=== PATIENT | female | born 1940 | race Caucasian/White ===

== ENCOUNTER → 2022-06-25 11:29 | Outpatient (BNVA) | payer MEDICARE, SELFPAY | PROVIDERS: PCP Family Medicine; Visit Provider Family Medicine | DX: E83.119 Hemochromatosis, unspecified (principal); E78.5 Hyperlipidemia, unspecified; M85.80 Other specified disorders of bone density and structure, unspecified site; D50.9 Iron deficiency anemia, unspecified; Z12.83 Encounter for screening for malignant neoplasm of skin; I10 Essential (primary) hypertension; G47.00 Insomnia, unspecified; M10.9 Gout, unspecified; Z00.00 Encounter for general adult medical examination without abnormal findings; Z76.89 Persons encountering health services in other specified circumstances | CPT/HCPCS: 80061; 82306; 82728; 83550; 84443; 85025 ==

== ENCOUNTER → 2022-07-23 08:19 | Outpatient (BNVA) | payer MEDICARE, SELFPAY | PROVIDERS: PCP Family Medicine; Referring Provider Family Medicine; Visit Provider Nurse Practitioner Family | DX: L82.1 Other seborrheic keratosis (principal); L81.4 Other melanin hyperpigmentation; D22.5 Melanocytic nevi of trunk; L85.3 Xerosis cutis; L57.0 Actinic keratosis; L72.0 Epidermal cyst; S80.261A Insect bite (nonvenomous), right knee, initial encounter; S20.469A Insect bite (nonvenomous) of unspecified back wall of thorax, initial encounter; W57.XXXA Bitten or stung by nonvenomous insect and other nonvenomous arthropods, initial encounter | CPT/HCPCS: 10120; 17000; 17003; 99204 ==

== ENCOUNTER 2022-09-12 09:50 | Oncology outpatient (recurring) (ONCR) | payer MEDICARE, SELFPAY ==
[2022-09-12 11:27] LABS: Basophils % 0.5 %; Eosinophils # 0.2 10^3/uL (0.0-0.8); Eosinophils % 2.9 %; Lymphocytes # 1.6 10^3/uL (0.8-4.8); Lymphocytes % 27.6 %; Mean Corpuscular HGB Conc 32.6 g/dL (30.0-36.0); Mean Corpuscular Hemoglobin 34.1 pg (28.0-34.0); Mean Corpuscular Volume 104.5 fl (81-99); Mean Platelet Volume 10.7 fL (7.4-10.4); Monocytes # 0.6 10^3/uL (0.2-0.9); Monocytes % 9.5 %; Neutrophils % 59.3 %; Nucleated Red Blood Cells % 0 %; Platelet Count 177 10^3/cmm (130-400); Red Cell Distribution Width 12.7 % (12.1-15.1); White Blood Count 5.9 10^3/uL (4.0-10.0)
== END 2022-09-21 23:59 | disposition home or self-care (01) ==
PROVIDERS: PCP Family Medicine; Visit Provider Internal Medicine Medical Oncology
DX: E83.119 Hemochromatosis, unspecified (principal)
CPT/HCPCS: 36415; 81256; 85025; 99203

== ENCOUNTER 2022-10-23 12:02 | Oncology outpatient (recurring) (ONCR) | payer MEDICARE, SELFPAY ==
[2022-10-23 12:09] VITALS: BMI 27.2
[2022-10-23 12:11] VITALS: BP 133/77; PULSE 72; RESP 16; TEMP 36.9; O2SAT 95
[2022-10-23 12:41] LABS: Basophils % 0.6 %; Eosinophils # 0.2 10^3/uL (0.0-0.8); Eosinophils % 3.3 %; Hematocrit 43.3 % (37.0-47.0); Hemoglobin 14.2 g/dL (11.5-15.3); Lymphocytes # 1.3 10^3/uL (0.8-4.8); Lymphocytes % 25.8 %; Mean Corpuscular HGB Conc 32.8 g/dL (30.0-36.0); Mean Corpuscular Hemoglobin 33.7 pg (28.0-34.0); Mean Corpuscular Volume 102.9 fl (81-99); Monocytes # 0.5 10^3/uL (0.2-0.9); Monocytes % 9.5 %; Neutrophils # 3.14 10^3/uL (1.8-7.7); Neutrophils % 60.8 %; Nucleated Red Blood Cells % 0 %; Platelet Count 157 10^3/cmm (130-400); Red Blood Count 4.21 10^6/uL (4.1-5.3); Red Cell Distribution Width 12.8 % (12.1-15.1); White Blood Count 5.2 10^3/uL (4.0-10.0)
[2022-10-23 13:10] LABS: Ferritin 169 ng/mL (15-150); Iron 126 ug/dL (37-145)
== END 2022-11-22 23:59 | disposition home or self-care (01) ==
PROVIDERS: PCP Family Medicine; Visit Provider Internal Medicine Medical Oncology
DX: E83.110 Hereditary hemochromatosis (principal); Z87.891 Personal history of nicotine dependence
CPT/HCPCS: 82728; 83540; 85025; 99213

== ENCOUNTER 2023-01-03 10:57 | Oncology outpatient (recurring) (ONCR) | payer MEDICARE, SELFPAY ==
[2023-01-03 12:05] LABS: Basophils % 0.3 %; Eosinophils # 0.2 10^3/uL (0.0-0.8); Eosinophils % 3.8 %; Hematocrit 45.3 % (36-47); Lymphocytes # 1.5 10^3/uL (0.8-4.8); Lymphocytes % 24.5 %; Mean Corpuscular HGB Conc 32.9 g/dL (30-55); Mean Corpuscular Hemoglobin 34.5 pg (27-33); Mean Corpuscular Volume 104.9 fl (85-98); Mean Platelet Volume 10.4 fL (7.4-10.4); Monocytes # 0.6 10^3/uL (0.2-0.9); Monocytes % 9.4 %; Neutrophils # 3.74 10^3/uL (1.8-7.7); Neutrophils % 61.8 %; Nucleated Red Blood Cells % 0 %; Platelet Count 186 10^3/cmm (157-399); Red Blood Count 4.32 10^6/uL (3.85-5.65); Red Cell Distribution Width 13.1 % (12.1-15.1); White Blood Count 6.05 10^3/uL (3.29-11.43)
[2023-01-03 12:33] LABS: Ferritin 247 ng/mL (15-150); Iron 143 ug/dL (37-145); Percent Saturation 64.7 % (20-50); Total Iron Binding Capacity 221 mcg/dl; Unsaturated Iron Binding 78 ug/dL (112-347)
[2023-01-03 13:06] VITALS: BP 145/77; PULSE 70; RESP 16; TEMP 36.7; O2SAT 95
[2023-01-03] MEDS: sodium chloride 0.9% 250 ML IV (14:33)
== END 2023-01-22 23:59 | disposition home or self-care (01) ==
PROVIDERS: Nurse Practitioner Family; PCP Family Medicine; Visit Provider Internal Medicine Medical Oncology
DX: E83.110 Hereditary hemochromatosis (principal); Z87.891 Personal history of nicotine dependence
CPT/HCPCS: 36415; 82728; 83540; 83550; 85025; 99195; 99214; J7050

== ENCOUNTER 2023-01-31 11:57 | Oncology outpatient (recurring) (ONCR) | payer MEDICARE, SELFPAY ==
[2023-01-31 12:35] LABS: Basophils % 0.5 %; Eosinophils # 0.1 10^3/uL (0.0-0.8); Eosinophils % 2.3 %; Hematocrit 45.7 % (36-47); Lymphocytes # 1.8 10^3/uL (0.8-4.8); Lymphocytes % 28.3 %; Mean Corpuscular HGB Conc 32.8 g/dL (30-55); Mean Corpuscular Hemoglobin 34.2 pg (27-33); Mean Corpuscular Volume 104.3 fl (85-98); Mean Platelet Volume 10.8 fL (7.4-10.4); Monocytes # 0.5 10^3/uL (0.2-0.9); Monocytes % 7.4 %; Neutrophils # 3.79 10^3/uL (1.8-7.7); Neutrophils % 61.3 %; Nucleated Red Blood Cells % 0 %; Platelet Count 168 10^3/cmm (157-399); Red Blood Count 4.38 10^6/uL (3.85-5.65); Red Cell Distribution Width 13.2 % (12.1-15.1); White Blood Count 6.18 10^3/uL (3.29-11.43)
[2023-01-31 13:45] VITALS: BP 114/67; PULSE 78; RESP 16; TEMP 36; O2SAT 99
== END 2023-02-21 23:59 | disposition home or self-care (01) ==
LOC: ONCMED 11:59
PROVIDERS: Nurse Practitioner Family; PCP Family Medicine; Visit Provider Internal Medicine Medical Oncology
DX: E83.119 Hemochromatosis, unspecified
CPT/HCPCS: 85025; 99195

== ENCOUNTER 2023-02-07 13:18 | Outpatient (CLI) | payer MEDICARE, SELFPAY ==
--- NOTE | 2023-02-07 13:46 | MM_ITS ---
WS: [id number] BILATERAL 3D TOMOSYNTHESIS DIGITAL SCREENING MAMMOGRAPHY WITH CAD CLINICAL INFORMATION: SCREEN HISTORY: Screening mammogram. History of breast reduction COMPARISON: Outside mammogram 01/30/2022 and 11/01/2020 TECHNIQUE: Bilateral CC and MLO views. FINDINGS: Scattered fibroglandular densities bilaterally. No suspicious focal mass, asymmetry, calcifications, or architectural distortion. No evidence of malignancy. A few incidental punctate calcifications. IMPRESSION: MM/[place] [id number] BI-RADS: 2-Benign FOLLOW UP: 1 Year Follow-up Recommend return to annual screening mammography.
== END 2023-02-07 13:19 | disposition home or self-care (01) ==
LOC: RAD 13:18
PROVIDERS: PCP Family Medicine; Visit Provider Family Medicine
DX: Z12.31 Encounter for screening mammogram for malignant neoplasm of breast (principal)
CPT/HCPCS: 77063; 77067

== ENCOUNTER 2023-02-28 13:25 | Oncology outpatient (recurring) (ONCR) | payer MEDICARE, SELFPAY ==
[2023-02-28 16:03] LABS: Basophils % 0.4 %; Eosinophils # 0.1 10^3/uL (0.0-0.8); Eosinophils % 2.2 %; Hematocrit 44.1 % (36-47); Lymphocytes # 1.4 10^3/uL (0.8-4.8); Mean Corpuscular HGB Conc 32.4 g/dL (30-55); Mean Corpuscular Hemoglobin 34.1 pg (27-33); Mean Corpuscular Volume 105.3 fl (85-98); Monocytes # 0.5 10^3/uL (0.2-0.9); Monocytes % 8.5 %; Neutrophils # 3.45 10^3/uL (1.8-7.7); Neutrophils % 63.5 %; Nucleated Red Blood Cells % 0 %; Platelet Count 193 10^3/cmm (157-399); Red Blood Count 4.19 10^6/uL (3.85-5.65); Red Cell Distribution Width 13.1 % (12.1-15.1); White Blood Count 5.43 10^3/uL (3.29-11.43)
[2023-02-28 16:24] LABS: Ferritin 91 ng/mL (15-150)
[2023-02-28 17:40] VITALS: BP 149/82; PULSE 89; RESP 16; TEMP 36.6; O2SAT 99
== END 2023-03-24 23:59 | disposition home or self-care (01) ==
PROVIDERS: Nurse Practitioner Family; PCP Family Medicine; Visit Provider Internal Medicine Medical Oncology
DX: E83.119 Hemochromatosis, unspecified (principal)
CPT/HCPCS: 82728; 85025; 99195

== ENCOUNTER 2023-04-01 12:14 | Oncology outpatient (recurring) (ONCR) | payer MEDICARE, SELFPAY ==
[2023-04-01 12:26] VITALS: BP 147/80; PULSE 74; RESP 16; TEMP 36.8; O2SAT 96
[2023-04-01 13:11] LABS: Basophils % 0.7 %; Eosinophils # 0.1 10^3/uL (0.0-0.8); Eosinophils % 2.2 %; Hematocrit 45.9 % (36-47); Lymphocytes # 1.5 10^3/uL (0.8-4.8); Mean Corpuscular HGB Conc 33.6 g/dL (30-55); Mean Corpuscular Hemoglobin 34.1 pg (27-33); Mean Corpuscular Volume 101.5 fl (85-98); Monocytes # 0.5 10^3/uL (0.2-0.9); Monocytes % 7.6 %; Neutrophils # 3.82 10^3/uL (1.8-7.7); Neutrophils % 64.3 %; Nucleated Red Blood Cells % 0 %; Platelet Count 215 10^3/cmm (157-399); Red Blood Count 4.52 10^6/uL (3.85-5.65); Red Cell Distribution Width 12.4 % (12.1-15.1); White Blood Count 5.93 10^3/uL (3.29-11.43)
[2023-04-01 13:18] LABS: Ferritin 68 ng/mL (15-150); Iron 87 ug/dL (37-145); Percent Saturation 37.5 % (20-50); Total Iron Binding Capacity 232 mcg/dl; Unsaturated Iron Binding 145 ug/dL (112-347)
== END 2023-04-24 23:59 | disposition home or self-care (01) ==
PROVIDERS: Nurse Practitioner Family; PCP Family Medicine; Visit Provider Internal Medicine Medical Oncology
DX: E83.119 Hemochromatosis, unspecified (principal); Z79.899 Other long term (current) drug therapy
CPT/HCPCS: 36415; 82728; 83540; 83550; 85025; 99213

== ENCOUNTER → 2023-04-03 14:49 | Outpatient (BNVA) | payer MEDICARE, SELFPAY | PROVIDERS: PCP Family Medicine; Visit Provider Dermatology | DX: D48.5 Neoplasm of uncertain behavior of skin (principal); L72.0 Epidermal cyst; L57.0 Actinic keratosis; D22.39 Melanocytic nevi of other parts of face; L82.1 Other seborrheic keratosis | CPT/HCPCS: 11102; 17000; 17110; 99213 ==

== ENCOUNTER 2023-05-13 10:00 | Oncology outpatient (recurring) (ONCR) | payer MEDICARE, SELFPAY ==
[2023-05-13 10:28] LABS: Basophils % 0.3 %; Eosinophils # 0.1 10^3/uL (0.0-0.8); Eosinophils % 1.9 %; Lymphocytes # 1.4 10^3/uL (0.8-4.8); Mean Corpuscular Hemoglobin 33.2 pg (27-33); Mean Corpuscular Volume 100.6 fl (85-98); Mean Platelet Volume 11.1 fL (7.4-10.4); Monocytes # 0.5 10^3/uL (0.2-0.9); Monocytes % 7.2 %; Neutrophils # 4.21 10^3/uL (1.8-7.7); Neutrophils % 67.4 %; Nucleated Red Blood Cells % 0 %; Platelet Count 167 10^3/cmm (157-399); Red Blood Count 4.67 10^6/uL (3.85-5.65); White Blood Count 6.25 10^3/uL (3.29-11.43)
[2023-05-13 10:47] LABS: Ferritin 75 ng/mL (15-150); Iron 152 ug/dL (37-145); Percent Saturation 68.1 % (20-50); Total Iron Binding Capacity 223 mcg/dl; Unsaturated Iron Binding 71 ug/dL (112-347)
== END 2023-05-23 23:59 | disposition home or self-care (01) ==
PROVIDERS: Nurse Practitioner Family; PCP Family Medicine; Visit Provider Internal Medicine Medical Oncology
DX: E83.119 Hemochromatosis, unspecified (principal)
CPT/HCPCS: 36415; 82728; 83540; 83550; 85025

== ENCOUNTER 2023-06-03 14:30 | Outpatient (CLI) | payer MEDICARE, SELFPAY ==
--- NOTE | 2023-06-03 14:34 | XR_ITS ---
WS: [id number] SCREENING DEXA SCAN LBE Security Master CLINICAL INFORMATION: osteopenia f/u COMPARISON: None. FINDINGS: The L1-L4 bone mineral density measures 1.141 g/cm2. This corresponds to a T score score of -0.3 and Z score of 1.6. Left femoral neck bone mineral density measures 0.896 g/cm2. This corresponds to a T score of -0.9 an d Z score of 1.2. Right femoral neck bone mineral density measures 0.899 g/cm2. This corresponds to a T score -0.9of an d Z score of 1.3. Mean femoral neck bone mineral density measures 0.898 g/cm2. This corresponds to a T score of -0.9 an d Z score of 1.2. IMPRESSION: Normal bone mineralization. Patient's FRAX calculated 10 year probability for major osteoporotic fracture is 21.1% and osteoporot ic hip fracture is 5.4%.
== END 2023-06-03 14:31 | disposition home or self-care (01) ==
LOC: RAD 14:31
PROVIDERS: PCP Family Medicine; Visit Provider Family Medicine
DX: Z13.820 Encounter for screening for osteoporosis (principal); Z78.0 Asymptomatic menopausal state
CPT/HCPCS: 77080

== ENCOUNTER 2023-07-01 10:05 | Oncology outpatient (recurring) (ONCR) | payer MEDICARE, SELFPAY ==
[2023-07-01 11:13] LABS: Basophils % 0.3 %; Eosinophils # 0.2 10^3/uL (0.0-0.8); Eosinophils % 2.5 %; Hematocrit 40.9 % (36-47); Lymphocytes # 1.4 10^3/uL (0.8-4.8); Mean Corpuscular HGB Conc 33.7 g/dL (30-55); Mean Corpuscular Hemoglobin 33.6 pg (27-33); Mean Corpuscular Volume 99.5 fl (85-98); Mean Platelet Volume 11.4 fL (7.4-10.4); Monocytes # 0.5 10^3/uL (0.2-0.9); Monocytes % 7.7 %; Neutrophils % 65.3 %; Nucleated Red Blood Cells % 0 %; Platelet Count 170 10^3/cmm (157-399); Red Blood Count 4.11 10^6/uL (3.85-5.65); Red Cell Distribution Width 14.5 % (12.1-15.1); White Blood Count 5.97 10^3/uL (3.29-11.43)
[2023-07-01 11:31] LABS: Alanine Aminotransferase 7 U/L (0-33); Albumin Level 3.9 g/dL (3.5-5.2); Alkaline Phosphatase 72 U/L (35-105); Anion Gap 12.4 (5-19); Aspartate Amino Transferase 20 U/L (0-32); Blood Urea Nitrogen 32 mg/dL (8-23); Calcium 9.6 mg/dL (8.5-10.5); Carbon Dioxide 30 mmol/L (22-29); Chloride 103 mmol/L (98-107); Creatinine Clr Calc Pharmacy 41.4332; Ferritin 124 ng/mL (15-150); Globulin 2.6 g/dL (1.3-4.6); Glucose 92 mg/dL (65-115); Iron 146 ug/dL (37-145); Osmolality Calculated 299 mOsm/kg (285-295); Potassium 4.4 mmol/L (3.5-5.1); Sodium 141 mmol/L (136-145); Total Bilirubin 0.4 mg/dL (0.15-1.2); Total Iron Binding Capacity 192 mcg/dl; Total Protein 6.5 g/dL (6.6-8.7); Unsaturated Iron Binding 46 ug/dL (112-347)
[2023-07-01] MEDS: sodium chloride 0.9% 250 ML 500 ML IV (12:38)
[2023-07-01 12:44] VITALS: BP 139/74; PULSE 65; RESP 16; TEMP 36.6; O2SAT 96
== END 2023-07-23 23:59 | disposition home or self-care (01) ==
PROVIDERS: Nurse Practitioner Family; PCP Family Medicine; Visit Provider Internal Medicine Medical Oncology
DX: E83.119 Hemochromatosis, unspecified (principal); Z79.899 Other long term (current) drug therapy; Z53.9 Procedure and treatment not carried out, unspecified reason
CPT/HCPCS: 80053; 82728; 83540; 83550; 85025; 96360; 99195; 99214; J7050

== ENCOUNTER → 2023-08-06 09:23 | Outpatient (BNVA) | payer MEDICARE, SELFPAY | PROVIDERS: PCP Family Medicine; Visit Provider Nurse Practitioner Family | DX: L82.0 Inflamed seborrheic keratosis (principal); L82.1 Other seborrheic keratosis; L81.4 Other melanin hyperpigmentation | CPT/HCPCS: 17110; 99213 ==

== ENCOUNTER 2023-08-20 12:30 | Oncology outpatient (recurring) (ONCR) | payer MEDICARE, SELFPAY ==
[2023-07-29 09:45] LABS: Basophils % 0.2 %; Eosinophils # 0.2 10^3/uL (0.0-0.8); Eosinophils % 3.6 %; Hematocrit 43.5 % (36-47); Lymphocytes # 1.4 10^3/uL (0.8-4.8); Lymphocytes % 26.3 %; Mean Corpuscular HGB Conc 32.4 g/dL (30-55); Mean Corpuscular Hemoglobin 33.6 pg (27-33); Mean Corpuscular Volume 103.6 fl (85-98); Mean Platelet Volume 10.3 fL (7.4-10.4); Monocytes # 0.5 10^3/uL (0.2-0.9); Monocytes % 8.5 %; Neutrophils # 3.26 10^3/uL (1.8-7.7); Neutrophils % 61.2 %; Nucleated Red Blood Cells % 0 %; Platelet Count 216 10^3/cmm (157-399); Red Cell Distribution Width 15.4 % (12.1-15.1); White Blood Count 5.32 10^3/uL (3.29-11.43)
[2023-07-29 10:10] LABS: Alanine Aminotransferase 20 U/L (0-33); Alkaline Phosphatase 80 U/L (35-105); Aspartate Amino Transferase 24 U/L (0-32); Blood Urea Nitrogen 31 mg/dL (8-23); Calcium 9.3 mg/dL (8.5-10.5); Carbon Dioxide 27 mmol/L (22-29); Chloride 101 mmol/L (98-107); Ferritin 111 ng/mL (15-150); Globulin 3.2 g/dL (1.3-4.6); Glucose 120 mg/dL (65-115); Iron 161 ug/dL (37-145); Osmolality Calculated 294 mOsm/kg (285-295); Percent Saturation 72.1 % (20-50); Sodium 138 mmol/L (136-145); Total Bilirubin 0.4 mg/dL (0.15-1.2); Total Iron Binding Capacity 223 mcg/dl; Total Protein 7.2 g/dL (6.6-8.7); Unsaturated Iron Binding 62 ug/dL (112-347)
[2023-07-29 10:14] LABS: Anion Gap 14.3 (5-19); Potassium 4.3 mmol/L (3.5-5.1)
[2023-07-29 11:22] VITALS: BP 136/81; PULSE 64; RESP 16; TEMP 37.1; O2SAT 97
[2023-08-20 12:49] VITALS: BP 122/72; PULSE 63; RESP 18; TEMP 36.7; O2SAT 93
[2023-08-20 13:03] LABS: Basophils % 0.5 %; Eosinophils # 0.2 10^3/uL (0.0-0.8); Eosinophils % 3.1 %; Hematocrit 37.7 % (36-47); Lymphocytes # 1.6 10^3/uL (0.8-4.8); Lymphocytes % 29.2 %; Mean Corpuscular HGB Conc 32.9 g/dL (30-55); Mean Corpuscular Hemoglobin 34.4 pg (27-33); Mean Corpuscular Volume 104.7 fl (85-98); Mean Platelet Volume 10.5 fL (7.4-10.4); Monocytes # 0.4 10^3/uL (0.2-0.9); Monocytes % 6.9 %; Neutrophils # 3.32 10^3/uL (1.8-7.7); Neutrophils % 60.1 %; Nucleated Red Blood Cells % 0 %; Platelet Count 169 10^3/cmm (157-399); Red Cell Distribution Width 13.2 % (12.1-15.1); White Blood Count 5.52 10^3/uL (3.29-11.43)
[2023-08-20 13:37] VITALS: BP 117/78; PULSE 74; RESP 18; TEMP 36.6; O2SAT 98
== END 2023-08-23 23:59 | disposition home or self-care (01) ==
PROVIDERS: Nurse Practitioner Family; PCP Family Medicine; Visit Provider Internal Medicine Medical Oncology
DX: Z53.9 Procedure and treatment not carried out, unspecified reason (principal); E83.119 Hemochromatosis, unspecified
CPT/HCPCS: 80053; 82728; 83540; 83550; 85025; 99195; 99213

== ENCOUNTER 2023-11-07 13:00 | Oncology outpatient (recurring) (ONCR) | payer MEDICARE, SELFPAY ==
[2023-11-07 13:51] LABS: Basophils % 0.8 %; Eosinophils # 0.2 10^3/uL (0.0-0.8); Eosinophils % 3.2 %; Hematocrit 44.1 % (36-47); Lymphocytes # 1.6 10^3/uL (0.8-4.8); Lymphocytes % 30.8 %; Mean Corpuscular HGB Conc 33.8 g/dL (30-55); Mean Corpuscular Hemoglobin 33.8 pg (27-33); Mean Platelet Volume 10.8 fL (7.4-10.4); Monocytes # 0.4 10^3/uL (0.2-0.9); Monocytes % 7.4 %; Neutrophils # 3.05 10^3/uL (1.8-7.7); Neutrophils % 57.6 %; Nucleated Red Blood Cells % 0 %; Platelet Count 213 10^3/cmm (157-399); Red Blood Count 4.41 10^6/uL (3.85-5.65); Red Cell Distribution Width 12.5 % (12.1-15.1); White Blood Count 5.29 10^3/uL (3.29-11.43)
[2023-11-07 14:08] LABS: Alanine Aminotransferase 17 U/L (0-33); Albumin Level 4.1 g/dL (3.5-5.2); Alkaline Phosphatase 75 U/L (35-105); Blood Urea Nitrogen 38 mg/dL (8-23); Calcium 9.6 mg/dL (8.5-10.5); Carbon Dioxide 27 mmol/L (22-29); Chloride 102 mmol/L (98-107); Ferritin 53 ng/mL (15-150); Globulin 2.8 g/dL (1.3-4.6); Glucose 107 mg/dL (65-115); Iron 115 ug/dL (37-145); Osmolality Calculated 300 mOsm/kg (285-295); Sodium 140 mmol/L (136-145); Total Bilirubin 0.2 mg/dL (0.15-1.2); Total Protein 6.9 g/dL (6.6-8.7)
[2023-11-07 14:13] LABS: Anion Gap 15.2 (5-19); Aspartate Amino Transferase 21 U/L (0-32); Percent Saturation 46.1 % (20-50); Potassium 4.2 mmol/L (3.5-5.1); Total Iron Binding Capacity 249 mcg/dl; Unsaturated Iron Binding 134 ug/dL (112-347)
== END 2023-11-23 23:59 | disposition home or self-care (01) ==
PROVIDERS: Nurse Practitioner Family; PCP Family Medicine; Visit Provider Internal Medicine Medical Oncology
DX: E83.119 Hemochromatosis, unspecified; Z79.899 Other long term (current) drug therapy; M85.80 Other specified disorders of bone density and structure, unspecified site
CPT/HCPCS: 36415; 80053; 82728; 83540; 83550; 85025; 99213

== ENCOUNTER 2024-02-06 12:31 | Oncology outpatient (recurring) (ONCR) | payer MEDICARE, SELFPAY ==
[2024-02-06 13:04] LABS: Basophils % 0.5 %; Eosinophils # 0.2 10^3/uL (0.0-0.8); Eosinophils % 2.9 %; Hematocrit 46.1 % (36-47); Lymphocytes # 1.6 10^3/uL (0.8-4.8); Lymphocytes % 25.6 %; Mean Corpuscular HGB Conc 32.8 g/dL (30-55); Mean Corpuscular Hemoglobin 33.3 pg (27-33); Mean Corpuscular Volume 101.8 fl (85-98); Mean Platelet Volume 10.6 fL (7.4-10.4); Monocytes # 0.4 10^3/uL (0.2-0.9); Monocytes % 6.2 %; Neutrophils # 4.06 10^3/uL (1.8-7.7); Neutrophils % 64.6 %; Nucleated Red Blood Cells % 0 %; Platelet Count 195 10^3/cmm (157-399); Red Blood Count 4.53 10^6/uL (3.85-5.65); Red Cell Distribution Width 12.8 % (12.1-15.1); White Blood Count 6.28 10^3/uL (3.29-11.43)
[2024-02-06 15:32] LABS: Alanine Aminotransferase 12 U/L (0-33); Albumin Level 3.8 g/dL (3.5-5.2); Alkaline Phosphatase 75 U/L (35-105); Blood Urea Nitrogen 26 mg/dL (8-23); Calcium 9.1 mg/dL (8.5-10.5); Carbon Dioxide 27 mmol/L (22-29); Chloride 99 mmol/L (98-107); Creatinine Clr Calc Pharmacy 46.3495; Ferritin 114 ng/mL (15-150); Globulin 2.6 g/dL (1.3-4.6); Glucose 113 mg/dL (65-115); Iron 105 ug/dL (37-145); Osmolality Calculated 288 mOsm/kg (285-295); Sodium 136 mmol/L (136-145); Total Bilirubin 0.3 mg/dL (0.15-1.2); Total Protein 6.4 g/dL (6.6-8.7)
[2024-02-06 15:43] LABS: Anion Gap 14.1 (5-19); Potassium 4.1 mmol/L (3.5-5.1); Total Iron Binding Capacity 228 mcg/dl; Unsaturated Iron Binding 123 ug/dL (112-347)
[2024-02-06 15:47] LABS: Aspartate Amino Transferase 21 U/L (0-32)
[2024-02-06 16:02] VITALS: BP 109/69; PULSE 84; RESP 16; TEMP 36.1; O2SAT 93
== END 2024-02-22 23:59 | disposition home or self-care (01) ==
PROVIDERS: Nurse Practitioner Family; PCP Family Medicine; Visit Provider Internal Medicine Medical Oncology
DX: E83.119 Hemochromatosis, unspecified (principal); M85.80 Other specified disorders of bone density and structure, unspecified site; Z79.899 Other long term (current) drug therapy
CPT/HCPCS: 36415; 80053; 82728; 83540; 83550; 85025; 99195; 99213

== ENCOUNTER 2024-02-24 10:54 | Outpatient (CLI) | payer MEDICARE, SELFPAY ==
--- NOTE | 2024-02-24 10:56 | MM_ITS ---
WS: [id number] BILATERAL SCREENING DIGITAL TOMOSYNTHESIS MAMMOGRAM WITH CAD HISTORY: SCREENING COMPARISON: 02/07/2023, 01/30/2022 and 05/03/2017 Bilateral CC and MLO views with tomosynthesis and synthetic mammography submitted. Computer aided det ection analyzed. Breast composition: There are scattered areas of fibroglandular density. No suspicious masses, microc alcifications or architectural distortion. MM/MM scr BI tomosynthesis [id number] IMPRESSION: BI-RADS: 2 - Benign. FOLLOW UP: 1 Year Follow-up
== END 2024-02-24 10:55 | disposition home or self-care (01) ==
LOC: RAD 10:55
PROVIDERS: PCP Family Medicine; Visit Provider Family Medicine
DX: Z12.31 Encounter for screening mammogram for malignant neoplasm of breast (principal); R92.323 Mammographic fibroglandular density, bilateral breasts
CPT/HCPCS: 77063; 77067

== ENCOUNTER 2024-04-22 07:45 | Oncology outpatient (recurring) (ONCR) | payer MEDICARE, SELFPAY ==
[2024-04-13 10:26] LABS: Basophils % 0.4 %; Eosinophils # 0.1 10^3/uL (0.0-0.8); Eosinophils % 1.6 %; Lymphocytes # 1.3 10^3/uL (0.8-4.8); Lymphocytes % 18.7 %; Mean Corpuscular HGB Conc 32.3 g/dL (30-55); Mean Corpuscular Hemoglobin 33.3 pg (27-33); Mean Corpuscular Volume 103.1 fl (85-98); Mean Platelet Volume 11.6 fL (7.4-10.4); Monocytes # 0.6 10^3/uL (0.2-0.9); Monocytes % 9.1 %; Neutrophils # 4.92 10^3/uL (1.8-7.7); Neutrophils % 70.1 %; Nucleated Red Blood Cells % 0 %; Platelet Count 181 10^3/cmm (157-399); Red Blood Count 4.56 10^6/uL (3.85-5.65); Red Cell Distribution Width 12.6 % (12.1-15.1); White Blood Count 7.02 10^3/uL (3.29-11.43)
[2024-04-13 12:20] LABS: Alanine Aminotransferase 11 U/L (0-33); Alkaline Phosphatase 72 U/L (35-105); Anion Gap 13.4 (5-19); Aspartate Amino Transferase 18 U/L (0-32); Blood Urea Nitrogen 28 mg/dL (8-23); Calcium 9.9 mg/dL (8.5-10.5); Carbon Dioxide 29 mmol/L (22-29); Chloride 98 mmol/L (98-107); Creatinine Clr Calc Pharmacy 45.8836; Ferritin 70 ng/mL (15-150); Globulin 2.8 g/dL (1.3-4.6); Glucose 84 mg/dL (65-115); Iron 101 ug/dL (37-145); Osmolality Calculated 287 mOsm/kg (285-295); Percent Saturation 47.8 % (20-50); Potassium 4.4 mmol/L (3.5-5.1); Sodium 136 mmol/L (136-145); Total Bilirubin 0.3 mg/dL (0.15-1.2); Total Iron Binding Capacity 211 mcg/dl; Total Protein 6.8 g/dL (6.6-8.7); Unsaturated Iron Binding 110 ug/dL (112-347)
--- NOTE | 2024-04-13 17:01 | PC.NURSE ---
Patient's IV came out in the left AC while trying to do a Phelbotomy. Av Holman RN started a new IV in the right AC with a 18 g. While doing starting another Phelbotomy the patient had complaints of the IV starting to hurt and the IV was blowing. Phelbotomy was stopped and IV deaccessed. Patient did not want to be stuck again so the patient has been rescheduled on 04/20/24 at 0900.
[2024-04-20 09:22] VITALS: BP 151/80; PULSE 65; RESP 18; TEMP 36; O2SAT 95
[2024-04-20 09:54] VITALS: BP 123/68; PULSE 65; RESP 18; TEMP 36.1; O2SAT 98
--- NOTE | 2024-04-22 07:45 | USR_ITS ---
PROCEDURE INFORMATION: Exam: US Abdomen Complete Exam date and time: 04/22/2024 8:00 AM Age: 83 years old Clinical indication: Condition or disease; Other: Hemochromatosis TECHNIQUE: Imaging protocol: Real-time ultrasound of the abdomen with image documentation. Complete exam. COMPARISON: No relevant prior studies available. FINDINGS: Liver: Right hepatic lobe benign cyst 3.6 cm x 3.5 cm x 4 cm. No mass. Gallbladder: Normal. No gallstones. There is no gallbladder wall thickening. Biliary ducts: Normal. No stones. No dilation. CBD 6 mm Pancreas: Visualized pancreas is unremarkable. Right kidney: Normal. No mass. No hydronephrosis. 8.7 cm x 4 cm x 3.7 cm Aorta: Normal. No aneurysm. Inferior vena cava: Normal. US/US abdomen complete* [id number] IMPRESSION: 1. Benign right hepatic lobe cyst. 2. Negative gallbladder and common bile duct 3. Otherwise negative examination
== END 2024-04-24 23:59 | disposition home or self-care (01) ==
LOC: ONCMED 07:50 → RAD 04-23 00:01 → ONCMED 04-23 09:33
PROVIDERS: Nurse Practitioner Family; PCP Family Medicine; Visit Provider Internal Medicine Medical Oncology
DX: E83.119 Hemochromatosis, unspecified (principal); K76.89 Other specified diseases of liver
CPT/HCPCS: 36415; 76700; 80053; 82728; 83540; 83550; 85025; 99195; 99214

== ENCOUNTER → 2024-05-22 10:34 | Outpatient (BNVA) | payer MEDICARE, SELFPAY | PROVIDERS: PCP Family Medicine; Visit Provider Nurse Practitioner Family | DX: L81.4 Other melanin hyperpigmentation (principal); D22.71 Melanocytic nevi of right lower limb, including hip; L72.0 Epidermal cyst; L57.8 Other skin changes due to chronic exposure to nonionizing radiation; L82.1 Other seborrheic keratosis; L57.0 Actinic keratosis | CPT/HCPCS: 17000; 99213 ==

== ENCOUNTER 2024-07-06 08:59 | Oncology outpatient (recurring) (ONCR) | payer MEDICARE, SELFPAY ==
[2024-07-06 09:22] LABS: Basophils % 0.4 %; Eosinophils # 0.1 10^3/uL (0.0-0.8); Eosinophils % 1.7 %; Lymphocytes # 1.3 10^3/uL (0.8-4.8); Lymphocytes % 17.6 %; Mean Corpuscular Hemoglobin 33.3 pg (27-33); Mean Corpuscular Volume 100.9 fl (85-98); Mean Platelet Volume 11.2 fL (7.4-10.4); Monocytes # 0.5 10^3/uL (0.2-0.9); Monocytes % 6.7 %; Neutrophils # 5.22 10^3/uL (1.8-7.7); Neutrophils % 73.3 %; Nucleated Red Blood Cells % 0 %; Platelet Count 180 10^3/cmm (157-399); Red Blood Count 4.36 10^6/uL (3.85-5.65); Red Cell Distribution Width 12.9 % (12.1-15.1); White Blood Count 7.12 10^3/uL (3.29-11.43)
[2024-07-06 09:39] LABS: Ferritin 66 ng/mL (15-150)
[2024-07-06 10:10] VITALS: BP 104/72; PULSE 66
== END 2024-07-22 23:59 | disposition home or self-care (01) ==
PROVIDERS: Internal Medicine Medical Oncology; PCP Family Medicine; Visit Provider Internal Medicine
DX: E83.119 Hemochromatosis, unspecified (principal)
CPT/HCPCS: 36415; 82728; 85025; 99195

== ENCOUNTER 2024-08-18 09:08 | Oncology outpatient (recurring) (ONCR) | payer MEDICARE, SELFPAY ==
[2024-08-18 09:32] LABS: Basophils % 0.5 %; Eosinophils # 0.2 10^3/uL (0.0-0.8); Eosinophils % 2.4 %; Hematocrit 42.8 % (36-47); Lymphocytes # 1.3 10^3/uL (0.8-4.8); Lymphocytes % 20.8 %; Mean Corpuscular HGB Conc 32.2 g/dL (30-55); Mean Corpuscular Hemoglobin 32.8 pg (27-33); Mean Corpuscular Volume 101.7 fl (85-98); Mean Platelet Volume 11.2 fL (7.4-10.4); Monocytes # 0.5 10^3/uL (0.2-0.9); Monocytes % 7.8 %; Neutrophils # 4.29 10^3/uL (1.8-7.7); Neutrophils % 68.2 %; Nucleated Red Blood Cells % 0 %; Platelet Count 204 10^3/cmm (157-399); Red Blood Count 4.21 10^6/uL (3.85-5.65); Red Cell Distribution Width 13.2 % (12.1-15.1); White Blood Count 6.29 10^3/uL (3.29-11.43)
[2024-08-18 10:25] LABS: Ferritin 29 ng/mL (15-150)
== END 2024-08-22 23:59 | disposition home or self-care (01) ==
PROVIDERS: Internal Medicine Medical Oncology; PCP Family Medicine; Visit Provider Internal Medicine
DX: E83.119 Hemochromatosis, unspecified (principal)
CPT/HCPCS: 82728; 85025

== ENCOUNTER 2024-09-28 09:32 | Oncology outpatient (recurring) (ONCR) | payer MEDICARE, SELFPAY ==
[2024-09-28 10:16] LABS: Hematocrit 45.5 % (36-47); Hemoglobin 14.70 g/dL (11.27-16.99); Mean Corpuscular HGB Conc 32.3 g/dL (30-55); Mean Corpuscular Hemoglobin 33.4 pg (27-33); Mean Corpuscular Volume 103.4 fl (85-98); Nucleated Red Blood Cells % 0 %; Platelet Count 151 10^3/cmm (157-399); Red Blood Count 4.40 10^6/uL (3.85-5.65); White Blood Count 6.63 10^3/uL (3.29-11.43)
[2024-09-28 10:38] LABS: Ferritin 55 ng/mL (15-150)
== END 2024-10-22 23:59 | disposition home or self-care (01) ==
PROVIDERS: PCP Family Medicine; Visit Provider Internal Medicine Medical Oncology
DX: E83.119 Hemochromatosis, unspecified (principal); Z87.891 Personal history of nicotine dependence
CPT/HCPCS: 36415; 82728; 85025; 99213

== ENCOUNTER 2024-11-04 14:33 | Outpatient (CLI) | payer MEDICARE, SELFPAY ==
--- NOTE | 2024-11-04 14:43 | XR_ITS ---
WS: [id number] PA and lateral chest, 11/04/2024 Clinical Data: Hflu pneumonia, loculated R pleural effusion s/p IR drainage Comparison: None. Findings: There is a dense opacity occupying the right lower lobe. No shift of the heart or mediastinum occurs. Left lung is clear. The heart is probably normal. The aortic arch is tortuous. No pneumothorax is seen. XR/XR chest 2V* [id number] Impression: 1. Large dense opacity occupying the right lower lobe which could represent loc ulated effusion, empyema, atelectasis of the right lower lobe and/or a mass. 2. Recommend obtaining old chest x-rays for comparison and doing a CT scan of t he chest.
== END 2024-11-04 14:34 | disposition home or self-care (01) ==
PROVIDERS: PCP Family Medicine; Visit Provider Family Medicine
DX: J18.9 Pneumonia, unspecified organism (principal); Z09 Encounter for follow-up examination after completed treatment for conditions other than malignant neoplasm; R91.8 Other nonspecific abnormal finding of lung field; J98.11 Atelectasis; J86.9 Pyothorax without fistula
CPT/HCPCS: 71046; 80053; 85025

== ENCOUNTER 2024-11-05 10:02 | Oncology outpatient (recurring) (ONCR) | payer MEDICARE, SELFPAY ==
--- NOTE | 2024-11-05 10:00 | CT_ITS ---
WS: [id number] CT chest w con* [id number] HISTORY: RLL consolidation TECHNIQUE: Axial imaging performed through the thorax. Coronal and sagittal reformats are submitted. All CT scans at [facility] use at least one of these dose optimization techniques: automated exposure control; mA and/or kV adjustment per patient size (includes targeted exams where dose is matched to clinical indication); or iterative reconstruction. CONTRAST: Omnipaque 350; 100 mL IV. DLP: 225.43 mGy.cm COMPARISON: Radiograph 11/04/2024 Lungs and central airway: Large fluid collection in the RIGHT lower thorax with a thin enhancing rim. Collection measures 10.0 x 13.7 x 15.9 cm. This collection does appear to be splitting the pleura suggesting this is an effusion. There is significant displacement and compressive atelectasis of the RIGHT lower lobe. Mass extends medially and is causing mass effect upon the IVC, heart and mediastinal structures. There is no air within this collection. Hounsfield units are approximately 13. Linear atelectasis medial LEFT upper lobe. Additional mild RIGHT pleural thickening along the fissures. No mass. Pleura: See above. Heart and pericardium: Normal size heart with no pericardial effusion. Mediastinum and abhi: Inferior RIGHT paratracheal lymph node measures 1.7 cm. There are a few more prominent RIGHT hilar lymph nodes. Vessels: Mild atherosclerosis aorta. No aneurysm. Normal size pulmonary artery. Chest wall and lower neck: No soft tissue masses. Upper abdomen: Hepatic cysts. The largest in the superior liver measures 3.3 x 3.9 cm. Smaller cyst in the LEFT lobe. No adrenal mass. Osseous structures: Advanced degenerative changes in the midthoracic spine. Disc bases are narrowed. Small subchondral changes involving several of the midthoracic vertebral bodies. CT/CT chest w con* [id number] IMPRESSION: 1. Large fluid collection RIGHT lower thorax measures 10.0 x 13.7 x 15.9 cm is likely an empyema. This may be exudative empyema as there is no significant wa ll thickening or air foci within this collection. Recommend sampling and follow -up with pulmonology. 2. Pleural fluid collection is causing mass effect upon the IVC, lung and medi astinal structures. Compressive atelectasis of the RIGHT lower lobe. 3. RIGHT paratracheal lymph node 1.7 cm is enlarged. Reactive versus neoplasti c. 4. Hepatic cysts.
[2024-11-05] MEDS: iohexol 350 mg/mL 500 mL Btl (per mL) IV (10:23)
== END 2024-11-22 23:59 | disposition home or self-care (01) ==
LOC: ONCMED 10:04
PROVIDERS: PCP Family Medicine; Visit Provider Internal Medicine Medical Oncology
DX: E83.119 Hemochromatosis, unspecified (principal); Z87.891 Personal history of nicotine dependence; J90 Pleural effusion, not elsewhere classified
CPT/HCPCS: 71260

== ENCOUNTER 2024-11-09 17:26 | Inpatient (IN) | payer MEDICARE, SELFPAY ==
--- OUTSIDE RECORDS SUMMARY | 2024-11-09 17:29 | XMS_ITS | Encounter Summary ---
Author Organization [facility] Address [address] [place] [address] Care Team Providers Care Collar Baster Jumpbasting Name Role Phone Khanh Babcock MD Primary Care Provider [phone] Encounter Details Date Type Department Care Team (Latest Contact Info) Description 10/03/2004 Outpatient Historical [facility] Ophthalmology [address] [place] [phone] Edna Elena MD 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
--- OUTSIDE RECORDS SUMMARY | 2024-11-09 17:29 | XMS_ITS | Encounter Summary ---
Author Organization [facility] Address [address] [place] [address] Care Team Providers Care Rating Examiner Name Role Phone Khanh Babcock MD Primary Care Provider [phone] Encounter Details Date Type Department Care Team (Latest Contact Info) Description 11/07/2004 Outpatient Historical [facility] Ophthalmology [address] [place] [address] [place] [phone] Edna Elena MD 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
--- OUTSIDE RECORDS SUMMARY | 2024-11-09 17:29 | XMS_ITS | Encounter Summary ---
Author Organization [facility] Address [address] [place] [address] Care Team Providers Care Lab Technician Name Role Phone Khanh Babcock MD Primary Care Provider [phone] Encounter Details Date Type Department Care Team (Late st Contact Info) Description 09/04/2004 Outpatient Historical [facility] Family Medicine [address] 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 Gender Identity Not on file Sexual Orientation Not on file documented as of this encounter Plan of Treatment Not on file documented as of this encounter Visit Diagnoses Diagnosis Routine gynecological examination- Primary Malignant neoplasm of colon, unspecified site (CMS/HCC) Malignant neoplasm of colon, unspecified site Unspecified essential hypertension Other and unspecified hyperlipidemia documented in this encounter Care Teams Lab Technician Relationship Specialty Start Date End Date Khanh Babcock MD [address] [place] [phone] PCP - General Family Practice 01/27/10 12/13/16 documented as of this encounter
--- OUTSIDE RECORDS SUMMARY | 2024-11-09 17:30 | XMS_ITS | Encounter Summary ---
Author Organization [facility] Address [address] [place] [address] Care Team Providers Care Steel Buffer Name Role Phone Khanh Babcock MD Primary Care Provider [phone] Encounter Details Date Type Department Care Team (Latest Contact Info) Description 07/11/2005 Outpatient Historical [facility] Family Medicine [address] 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
--- OUTSIDE RECORDS SUMMARY | 2024-11-09 17:30 | XMS_ITS | Encounter Summary ---
Author Organization [facility] Address [address] [place] [address] Care Team Providers Care Aircraft Pilot Name Role Phone Khanh Babcock MD Primary Care Provider [phone] Encounter Details Date Type Department Care Team (Late st Contact Info) Description 08/22/2007 Outpatient Historical [facility] [address] [place] [address] [place] [address] Meryl Steele MD [address] [place] [address] Social History Tobacco Use Types Packs/Day Years Used Date Smoking Tobacco: Former Cigarettes 2 18 0 03/25/1965 - 03/25/1983 Alcohol Use Standard Drinks/Week Comments Yes 0.8 (1 standard drink = 0.6 oz p ure alcohol) Comments Unknown Sex and Gender Information Value Date Recorded Sex Assigned at Not on file 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
--- OUTSIDE RECORDS SUMMARY | 2024-11-09 17:30 | XMS_ITS | Encounter Summary ---
Author Organization [facility] Address [address] [place] [address] Care Team Providers Care Tile And Marble Setter Name Role Phone Khanh Babcock MD Primary Care Provider [phone] Encounter Details Date Type Department Care Team (Latest Contact Info) Description 11/23/2004 Outpatient [facility] Gastroenterology[address] [place] [phone] Perry Ayala MD [address] [facility] [address] [place] [address] PERS HX OF COLONIC MALIGNANCY (Primary Dx) Social History Tobacco Use Types Packs/Day Years Used Date Smoking Tobacco: Never Assessed Comments Unknown Sex and Gender Information Value Date Recorded Sex Assigned at Not on file 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
--- OUTSIDE RECORDS SUMMARY | 2024-11-09 17:30 | XMS_ITS | Encounter Summary ---
Author Organization [facility] Address [address] [place] [address] Care Team Providers Care Top Screw Name Role Phone Khanh Babcock MD Primary Care Provider [phone] Reason for Referral * Outpatient Services (Routine) - Closed Specialty Diagnoses / Procedures Referred By Tabby nogueira Referred To Contact Diagnoses Visit for screening mammogram Procedures MAMMO DIGITAL SCREEN BILAT Khanh Babcock MD Phone: tel: fax: Referral ID Status Reason Start Date Expiration Date Visits Re quested Visits Authorized [id number] Closed 03/15/2015 04/14/2016 1 1 ATOR CLEANER Encounter Details Date Type Department Care Team (Latest Contact Info) Description 03/15/2015 Ancillary Orders [facility] Pre-Registration [place] CALL TO MAKE APPOINTMENT ONLY [address] [place] [address] Khanh Babcock MD [address] [place] [address] Visit for screening mammogram (Primary Dx) Social History Tobacco Use Types Packs/Day Years Used Date Smoking Tobacco: Former Cigarettes 2 18 0 03/25/1965 - 03/25/1983 Alcohol Use Standard Drinks/Week Comments Yes 0.8 (1 standard drink = 0.6 oz p ure alcohol) Comments No Sex and Gender Information Value Date Recorded Sex Assigned at Not on file Legal 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 Female 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 Gender Identity Not on file Sexual Orientation Not on file Occupation Industry Job Start Date Job End Date Not on file Not on file Not on file Not on file documented as of this encounter Plan of Treatment Not on file documented as of this encounter Results * MAMMO DIGITAL SCREEN BILAT (04/18/2015 2:48 PM RADIATOR CLEANER) Anatomical Region Laterality Modality Breast Bilateral Mammography Narrative 04/19/2015 10:04 AM RADIATOR CLEANER Bilateral Mammogram Reason for Exam: Screening Comparison: Compared to: 03/30/2014 MAMMO DIGITAL SCREEN BILAT, 02/26/2013 MAMMO DIGITAL SCREEN BILAT, 02/26/2012 MAMMO DIGITAL SCREEN BILAT, 11/29/2010 MAMMO DIGITAL SCREEN BILAT, 11/01/2009 MAMMO DIGITAL SCREEN BILAT, 06/04/2008 MAMMO SCREENING BILAT Findings: Bilateral CC and MLO views were obtained. This examination was reviewed with the aid of a computer-aided detection system(CAD). The breast tissue density is average. No significant new findings since the prior mammogram(s). us Khanh Babcock MD MAMMO ORDERABLES Final Result documented in this encounter Visit Diagnoses Diagnosis Visit for screening mammogram- Primary Other screening mammogram Visit for screening mammogram Other screening mammogram documented in this encounter Care Teams Top Screw Relationship Specialty Start Date End Date Khanh Babcock MD [address] [place] [phone] PCP - General Family Practice 01/27/10 12/13/16 documented as of this encounter
--- OUTSIDE RECORDS SUMMARY | 2024-11-09 17:30 | XMS_ITS | Encounter Summary ---
Author Organization [facility] Address [address] [place] [address] Care Team Providers Care Administrative Resources Associate Name Role Phone Khanh Babcock MD Primary Care Provider [phone] Encounter Details Date Type Department Care Team (Late st Contact Info) Description 04/30/2008 Ancillary Orders [facility] [address] [address] Meryl Steele MD [address] [place] [address] Screening Mammogram Social History Tobacco Use Types Packs/Day Years Used Date Smoking Tobacco: Former Cigarettes 2 18 0 03/25/1965 - 03/25/1983 Alcohol Use Standard Drinks/Week Comments Yes 0.8 (1 standard drink = 0.6 oz p ure alcohol) Comments Unknown Sex and Gender Information Value Date Recorded Sex Assigned at Not on file 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 This examination was reviewed with the aid of a computer-aided detection system(CAD). The breast tissue density is average. Asymmetric breast tissue is noted. No significant new findings since the prior mammogram(s). Procedure Note Wendy Rosas MD - 06/07/2008 Bilateral Mammogram Reason for Exam: Screening Comparison: Comparison is made with the prior exam(s) dated 12.13.04,01.15.06 Findings: Bilateral CC and MLO views were obtained. This examination was reviewed with the aid of a computer-aided detectionsystem(CAD). The breast tissue density is average. Asymmetric breast tissue is noted. No significant new findings since the prior mammogram(s). Meryl Steele MD MAMMO ORDERABLES Final Resu lt documented in this encounter Visit Diagnoses Diagnosis Screening mammogram Other screening mammogram Screening mammogram Other screening mammogram documented in this encounter Care Teams Administrative Resources Associate Relationship Specialty Start Date End Date Khanh Babcock MD [address] [place] [phone] PCP - General Family Practice 01/27/10 12/13/16 documented as of this encounter
--- OUTSIDE RECORDS SUMMARY | 2024-11-09 17:30 | XMS_ITS | Encounter Summary ---
Author Organization [facility] Address [address] [place] [address] Care Team Providers Care Mobile Developer Name Role Phone Khanh Babcock MD Primary Care Provider [phone] Encounter Details Date Type Department Care Team (Latest Contact Info) Description 01/07/2006 Outpatient Historical [facility] Family Medicine [address] 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
--- OUTSIDE RECORDS SUMMARY | 2024-11-09 17:30 | XMS_ITS | Encounter Summary ---
Author Organization [facility] Address [address] [place] [address] Care Team Providers Care Dispatcher Tugboat Name Role Phone Khanh Babcock MD Primary Care Provider Reason for Referral * Outpatient Services (Routine) - Closed Specialty Diagnoses / Procedures Referred By Tabby nogueira Referred To Contact Diagnoses Other screening mammogram Procedures MAMMO DIGITAL SCREEN BILAT Khanh Babcock MD [address] [place] [phone] Phone: tel: fax: Referral ID Status Reason Start Date Expiration Date Visits Re quested Visits Authorized [id number] Closed 03/09/2014 04/09/2015 1 1 K AND WATCH HANDS MOUNTER Encounter Details Date Type Department Care Team (Latest Contact Info) Description 03/09/[address] [facility] Pre-Registration [place] CALL TO MAKE APPOINTMENT ONLY [address] [place] [address] Khanh Babcock MD [address] [place] [address] Other screening mammogram (Primary Dx) Social History Tobacco Use Types Packs/Day Years Used Date Smoking Tobacco: Former Cigarettes 2 18 0 03/25/1965 - 03/25/1983 Alcohol Use Standard Drinks/Week Comments Yes 0.8 (1 standard drink = 0.6 oz p ure alcohol) Comments No Sex and Gender Information Value Date Recorded Sex Assigned at Not on file Legal Sex Female 3:39 AM CLOCK AND WATCH HANDS MOUNTER Gender Identity Not on file Sexual Orientation Not on file Occupation Industry Job Start Date Job End Date Not on file Not on file Not on file Not on file documented as of this encounter Plan of Treatment Not on file documented as of this encounter Results * MAMMO DIGITAL SCREEN BILAT (03/30/2014 11:23 AM CLOCK AND WATCH HANDS MOUNTER) Anatomical Region Laterality Modality Breast Bilateral Mammography Narrative 03/31/2014 1:35 PM CLOCK AND WATCH HANDS MOUNTER Bilateral Mammogram Reason for Exam: Screening Comparison: Compared to: 02/26/2013 MAMMO DIGITAL SCREEN BILAT, 02/26/2012 MAMMO DIGITAL SCREEN BILAT, 11/29/2010 MAMMO DIGITAL SCREEN BILAT, 11/01/2009 MAMMO DIGITAL SCREEN BILAT, 06/04/2008 MAMMO SCREENING BILAT Findings: Bilateral CC and MLO views were obtained. This examination was reviewed with the aid of a computer-aided detection system(CAD). The breast tissue density is fatty. No significant new findings since the prior mammogram(s). Procedure Note Karen Fletcher MD - 03/31/2014 Bilateral Mammogram Reason for Exam: Screening Comparison: Compared to: 02/26/2013 MAMMO DIGITAL SCREEN BILAT, 02/26/2012MAMMO DIGITAL SCREEN BILAT, 11/29/2010 MAMMO DIGITAL SCREEN BILAT,11/01/2009 MAMMO DIGITAL SCREEN BILAT, 06/04/2008 MAMMO SCREENING BILAT Findings: Bilateral CC and MLO views were obtained. This examination was reviewed with the aid of a computer-aided detectionsystem(CAD). The breast tissue density is fatty. No significant new findings since the prior mammogram(s). us Khanh Babcock MD MAMMO ORDERABLES Final Result documented in this encounter Visit Diagnoses Diagnosis Other screening mammogram- Primary Other screening mammogram documented in this encounter Additional Health Concerns Assessment Noted Time PHQ-9 Depression Total Score: 2 12/08/19 14 8:00 AM CDT documented as of this encounter Care Teams Dispatcher Tugboat Relationship Specialty Start Date End Date Khanh Babcock MD [address] [place] [phone] PCP - General Family Practice 01/27/10 12/13/16 documented as of this encounter
--- OUTSIDE RECORDS SUMMARY | 2024-11-09 17:30 | XMS_ITS | Encounter Summary ---
Author Organization [facility] Address [address] [place] [address] Care Team Providers Care Testing Specialist Name Role Phone Khanh Babcock MD Primary Care Provider [phone] Encounter Details Date Type Department Care Team (Latest Contact Info) Description 11/23/2004 Outpatient Historical [facility] [place] [address] [place] [address] [place] [phone] Perry Ayala MD [address] [facility] [address] [place] [address] PERS HX OF COLONIC MALIGNANCY (Primary Dx) Social History Tobacco Use Types Packs/Day Years Used Date Smoking Tobacco: Never Assessed Comments Unknown Sex and Gender Information Value Date Recorded Sex Assigned at Not on file Legal Sex Female 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
--- OUTSIDE RECORDS SUMMARY | 2024-11-09 17:30 | XMS_ITS | Encounter Summary ---
Author Organization [facility] Address [address] [place] [address] Care Team Providers Care Casino Floor Supervisor Name Role Phone Khanh Babcock MD Primary Care Provider [phone] Encounter Details Date Type Department Care Team (Late st Contact Info) Description 09/04/2004 Outpatient Historical [facility] Family Medicine [address] 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
--- OUTSIDE RECORDS SUMMARY | 2024-11-09 17:30 | XMS_ITS | Encounter Summary ---
Author Organization [facility] Address [address] [place] [address] Care Team Providers Care Spray Booth Operator Name Role Phone Khanh Babcock MD Primary Care Provider [phone] Encounter Details Date Type Department Care Team (Latest Contact Info) Description 12/13/2004 Outpatient [facility] [address] 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
--- OUTSIDE RECORDS SUMMARY | 2024-11-09 17:30 | XMS_ITS | Encounter Summary ---
Author Organization [facility] Address [address] [place] [address] Care Team Providers Care Float Builder Name Role Phone Khanh Babcock MD Primary Care Provider [phone] Reason for Referral * Outpatient Services (Routine) - Closed Specialty Diagnoses / Procedures Referred By Tabby nogueira Referred To Contact Diagnoses Visit for screening mammogram Procedures MAMMO SCREEN BILAT W OR WO CAD Khanh Babcock MD [address] [place] [phone] Phone: tel: fax: Referral ID Status Reason Start Date Expiration Date Visits Re quested Visits Authorized [id number] Closed 04/17/2016 05/18/2017 1 1 TATION OPERATOR CONVERSION Encounter Details Date Type Department Care Team (Latest Contact Info) Description 04/17/2016 Ancillary Orders [facility] Pre-Registration [place] CALL TO MAKE APPOINTMENT ONLY [address] [place] [address] Khanh Babcock MD [address] [place] [address] Visit for screening mammogram Social History Tobacco Use Types Packs/Day Years Used Date Smoking Tobacco: Former Cigarettes 2 18 0 03/25/1965 - 03/25/1983 Alcohol Use Standard Drinks/Week Comments Yes 0.8 (1 standard drink = 0.6 oz p ure alcohol) Comments No Sex and Gender Information Value Date Recorded Sex Assigned at Not on file Legal Sex Female 3:39 AM SUBSTATION OPERATOR CONVERSION Gender Identity Not on file Sexual Orientation Not on file Occupation Industry Job Start Date Job End Date Not on file Not on file Not on file Not on file documented as of this encounter Plan of Treatment Not on file documented as of this encounter Results * MAMMO SCREEN BILAT W OR WO CAD (04/24/2016 3:41 PM SUBSTATION OPERATOR CONVERSION) Anatomical Region Laterality Modality Breast Bilateral Mammography Narrative 04/25/2016 9:30 AM SUBSTATION OPERATOR CONVERSION Bilateral Mammogram Reason for Exam: Screening Comparison: Compared to: 04/18/2015 MAMMO DIGITAL SCREEN BILAT, 03/30/2014 MAMMO DIGITAL SCREEN BILAT, 02/26/2013 MAMMO DIGITAL SCREEN BILAT, 02/26/2012 MAMMO DIGITAL SCREEN BILAT, 11/29/2010 MAMMO DIGITAL SCREEN BILAT, and 11/01/2009 MAMMO DIGITAL SCREEN BILAT Findings: Bilateral CC and MLO views were obtained. This examination was reviewed with the aid of a computer-aided detection system(CAD). The breast tissue density is average. No significant new findings since the prior mammogram(s). us Khanh Babcock MD MAMMO ORDERABLES Final Result documented in this encounter Visit Diagnoses Diagnosis Visit for screening mammogram Other screening mammogram Visit for screening mammogram Other screening mammogram documented in this encounter Care Teams Float Builder Relationship Specialty Start Date End Date Khanh Babcock MD [address] [place] [phone] PCP - General Family Practice 01/27/10 12/13/16 documented as of this encounter
--- OUTSIDE RECORDS SUMMARY | 2024-11-09 17:30 | XMS_ITS | Encounter Summary ---
Author Organization [facility] Address [address] [place] [address] Care Team Providers Care Automatic Buffing Wheel Former Name Role Phone Khanh Babcock MD Primary Care Provider Reason for Referral * Outpatient Services (Routine) - Closed Specialty Diagnoses / Procedures Referred By Tabby t Referred To Contact Radiology Diagnoses Other screening mammogram Procedures MAMMO DIGITAL SCREEN BILAT Khanh Babcock MD [address] [place] [phone] Phone: tel: fax: [facility] [address] [address] Phone: tel: fax: Referral ID Status Reason Start Date Expiration Date Visits Re quested Visits Authorized [id number] Closed 01/30/2013 03/02/2014 1 1 CLERK Encounter Details Date Type Department Care Team (Latest Contact Info) Description 01/30/2013 Ancillary Orders [facility] Pre-Registration [place] CALL TO MAKE APPOINTMENT ONLY [address] [place] [address] Khanh Babcock MD [address] [place] [phone] Other screening mammogram (Primary Dx) Social History Tobacco Use Types Packs/Day Years Used Date Smoking Tobacco: Former Cigarettes 2 18 0 03/25/1965 - 03/25/1983 Alcohol Use Standard Drinks/Week Comments Yes 0.8 (1 standard drink = 0.6 oz p ure alcohol) Comments No Sex and Gender Information Value Date Recorded Sex Assigned at Not on file Legal Sex Female 3:39 AM LOG CLERK Gender Identity Not on file Sexual Orientation Not on file Occupation Industry Job Start Date Job End Date Not on file Not on file Not on file Not on file documented as of this encounter Plan of Treatment Not on file documented as of this encounter Results * MAMMO DIGITAL SCREEN BILAT (02/26/2013 8:40 AM LOG CLERK) Anatomical Region Laterality Modality Breast Bilateral Mammography Narrative 02/27/2013 11:11 AM LOG CLERK Bilateral Mammogram Reason for Exam: Screening Comparison: Compared to: 02/26/2012 MAMMO DIGITAL SCREEN BILAT, 11/29/2010 MAMMO DIGITAL SCREEN BILAT, 11/01/2009 MAMMO DIGITAL SCREEN BILAT, 06/04/2008 MAMMO SCREENING BILAT Findings: Bilateral CC and MLO views were obtained. This examination was reviewed with the aid of a computer-aided detection system(CAD). The breast tissue density is average. No significant new findings since the prior mammogram(s). Procedure Note Zunilda Ko MD - 02/27/2013 Bilateral Mammogram Reason for Exam: Screening Comparison: Compared to: 02/26/2012 MAMMO DIGITAL SCREEN BILAT, 11/29/2010MAMMO DIGITAL SCREEN BILAT, 11/01/2009 MAMMO DIGITAL SCREEN BILAT,06/04/2008 MAMMO SCREENING BILAT Findings: Bilateral CC and MLO views were obtained. This examination was reviewed with the aid of a computer-aided detectionsystem(CAD). The breast tissue density is average. No significant new findings since the prior mammogram(s). Khanh Babcock MD MAMMO ORDERABLES Final Result documented in this encounter Visit Diagnoses Diagnosis Other screening mammogram- Primary Other screening mammogram documented in this encounter Care Teams Automatic Buffing Wheel Former Relationship Specialty Start Date End Date Khanh Babcock MD [address] [place] [phone] PCP - General Family Practice 01/27/10 12/13/16 documented as of this encounter
--- OUTSIDE RECORDS SUMMARY | 2024-11-09 17:30 | XMS_ITS | Encounter Summary ---
Author Organization [facility] Address [address] [place] [address] Care Team Providers Care Die Maker Name Role Phone Khanh Babcock MD Primary Care Provider [phone] Encounter Details Date Type Department Care Team (Latest Contact Info) Description 07/12/2005 Outpatient [facility] [address] [address] Karen Fletcher MD NO ADDRESS ON FILE Other Sign and Symptom in Breast (Primary Dx); Other and Unspecified Hyperlipidemia Social History Tobacco Use Types Packs/Day Years Used Date Smoking Tobacco: Never Assessed Comments Unknown Sex and Gender Information Value Date Recorded Sex Assigned at Not on file Legal 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
--- OUTSIDE RECORDS SUMMARY | 2024-11-09 17:30 | XMS_ITS | Encounter Summary ---
Author Organization [facility] Address [address] [place] [address] Care Team Providers Care Timber Packer Name Role Phone Khanh Babcock MD Primary Care Provider Encounter Details Date Type Department Care Team (Latest Contact Info) Description 11/20/2006 Outpatient Historical [facility] Family Medicine [address] 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 Gender Identity Not on file Sexual Orientation Not on file documented as of this encounter Plan of Treatment Not on file documented as of this encounter Visit Diagnoses Diagnosis Need for prophylactic vaccination against Streptococcus pneumoniae (pneumococcus)- Primary Need for prophylactic vaccination against streptococcus pneumoniae (pneumococcus) Unspecified essential hypertension Unspecified hypertensive heart disease without heart failure Other and unspecified hyperlipidemia 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
--- OUTSIDE RECORDS SUMMARY | 2024-11-09 17:30 | XMS_ITS | Encounter Summary ---
Author Organization [facility] Address [address] [place] [address] Care Team Providers Care Facing Baster Jumpbasting Name Role Phone Khanh Babcock MD Primary Care Provider [phone] Reason for Referral * Outpatient Services (Routine) - Closed Specialty Diagnoses / Procedures Referred By Tabby nogueira Referred To Contact Diagnoses Other screening mammogram Procedures MAMMO DIGITAL SCREEN BILAT Khanh Babcock MD [address] [place] [address] Phone: tel: fax: Referral ID Status Reason Start Date Expiration Date Visits Re quested Visits Authorized [id number] Closed 01/16/2012 01/15/2013 1 1 Encounter Details Date Type Department Care Team (Latest Contact Info) Description 01/16/[address] [facility] Pre-Registration [place] CALL TO MAKE APPOINTMENT ONLY [address] [place] [address] Khanh Babcock MD [address] [place] [address] Other screening mammogram Social History Tobacco Use Types Packs/Day Years Used Date Smoking Tobacco: Former Cigarettes 2 18 0 03/25/1965 - 03/25/1983 Alcohol Use Standard Drinks/Week Comments Yes 0.8 (1 standard drink = 0.6 oz p ure alcohol) Comments No Sex and Gender Information Value Date Recorded Sex Assigned at Not on file Legal Sex Female 3:39 AM ENVIRONMENTAL OFFICER Gender Identity Not on file Sexual Orientation Not on file documented as of this encounter Plan of Treatment Not on file documented as of this encounter Results * MAMMO DIGITAL SCREEN BILAT (02/26/2012 8:53 AM ENVIRONMENTAL OFFICER) Anatomical Region Laterality Modality Breast Bilateral Mammography Narrative 02/27/2012 12:24 PM ENVIRONMENTAL OFFICER Bilateral Mammogram Reason for Exam: Screening Comparison: Comparison is made with the prior exam(s) dated 01.15.06 8.10.10 97.11 Findings: Bilateral CC and MLO views were obtained. This examination was reviewed with the aid of a computer-aided detection system(CAD). The breast tissue density is average. No significant new findings since the prior mammogram(s). Procedure Note Karen Fletcher MD - 02/27/2012 Bilateral Mammogram Reason for Exam: Screening Comparison: Comparison is made with the prior exam(s) dated 01.15.068.10.10 97.11 Findings: Bilateral CC and MLO views were obtained. This examination was reviewed with the aid of a computer-aided detectionsystem(CAD). The breast tissue density is average. No significant new findings since the prior mammogram(s). Khanh Babcock MD MAMMO ORDERABLES Final Result documented in this encounter Visit Diagnoses Diagnosis Other screening mammogram Other screening mammogram documented in this encounter Care Teams Facing Baster Jumpbasting Relationship Specialty Start Date End Date Khanh Babcock MD [address] [place] [phone] PCP - General Family Practice 01/27/10 12/13/16 documented as of this encounter
--- OUTSIDE RECORDS SUMMARY | 2024-11-09 17:30 | XMS_ITS | Encounter Summary ---
Author Organization [facility] Address [address] [place] [address] Care Team Providers Care Automatic Buffing Wheel Former Name Role Phone Khanh Babcock MD Primary Care Provider [phone] Encounter Details Date Type Department Care Team (Late st Contact Info) Description 01/15/2006 Outpatient Historical [facility] Verna Kiran MD NO ADDRESS ON FILE Other Follow-Up Examination (Primary Dx) Social History Tobacco Use Types Packs/Day Years Used Date Smoking Tobacco: Never Assessed Comments Unknown Sex and Gender Information Value Date Recorded Sex Assigned at Not on file Legal Sex Female 3: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
--- OUTSIDE RECORDS SUMMARY | 2024-11-09 17:30 | XMS_ITS | Encounter Summary ---
Author Organization [facility] Address [address] [place] [address] Care Team Providers Care Pot Filler Name Role Phone Khanh Babcock MD Primary Care Provider [phone] Encounter Details Date Type Department Care Team (Latest Contact Info) Description 07/12/2005 Outpatient Historical [facility] Verna Kiran MD NO ADDRESS ON FILE Other Abnormal Findings on Radiological Examination of Breast (Primary Dx) Social History Tobacco Use Types Packs/Day Years Used Date Smoking Tobacco: Never Assessed Comments Unknown Sex and Gender Information Value Date Recorded Sex Assigned at Not on file Legal Sex Female 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
--- OUTSIDE RECORDS SUMMARY | 2024-11-09 17:30 | XMS_ITS | Clinical Summary ---
Author Organization [facility] Address [address] [place]: [place] [address] Care Team Providers Care Street Cleaner Name Role Phone Unavailable Primary Care Provider Unavailabl e Allergies Active Allergy Reactions Criticality Noted Date Comments Sulfa (Sulfonamide Antibiotics) Rash,Itching Low Medications ibuprofen (MOTRIN) 800 mg tablet TAKE ONE TABLET BY MOUTH EVERY 8 HOURS NEEDED FOR PAIN , MILD 90 Tablet 3 09/07/2016 Active metoprolol tartrate (LOPRESSOR) 100 mg tabletIndications :Chronic kidney disease, stage III (moderate) (CMS/HCC),Essenti al hypertension with goal blood pressure less than 140/90 Take 0.5 Tablet (50 mg) by mouth daily. 45 Tablet 3 12/12/2015 Active atorvastatin (LIPITOR) 80 mg tabletIndications :Hypercholesterem ia Take 0.5 Tablet (40 mg) by mouth Daily LATE. 45 Tablet 2 12/12/2015 Active triamterene-hydro CHLOROthiazide (MAXZIDE 25) 37.5-25 mg tabletIndications :Essential hypertension with goal blood pressure less than 140/90 Take 1 Tablet by mouth daily. 90 Tablet 2 12/12/2015 Active allopurinoL (ZYLOPRIM) 300 mg tabletIndications :Idiopathic chronic gout of multiple sites without tophus Take 1 Tablet (300 mg) by mouth daily. 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 08/21/2007 06/09/2012 Overview (07/20/2020): Colon cancer in , Immunizations Immunization Administration Dates Next Due (PNEUMOVAX 23)(50 YRS UP) PN EUMOCOCCAL POLYSACCHARIDE (PPV23) 0.5 ML, IM 11/20/2006 (PREVNAR 13)(6 WKS UP) PNEUM OCOCCAL CONJUGATE (PCV13) 0.5 ML, IM 06/07/2014 Influenza Seasonal Unspecifi ed Formulation IM 01/30/2011 Influenza Vaccine High Dose 65+ Yrs IM 6,02/01/2015,01/22/2014 Influenza Vaccine Split 3+ Yrs IM 12/10/2012, Zoster Vaccine Live SQ 01/17/2016 Family History Medical History Relation Name Comments Cancer Father prostate cancer Colon Cancer Mother Colon Cancer Other self Breast Cancer Sister 1 age 47 1 posit ronan response- see media tab Heart Disease Son CABG age 42 High Cholesterol Son Ovarian Cancer Neg Hx Relation Name Status Comments Father Mother Other self Alive Sister 1 Sister 2 Alive Son Alive Social History Tobacco Use Types Packs/Day Years Used Date Smoking Tobacco: Former Cigarettes Q uit: 03/25/1983 Alcohol Use Standard Drinks/Week Comments Yes 0.8 (1 standard drink = 0.6 oz p ure alcohol) Comments Unknown Sex and Gender Information Value Date Recorded Sex Assigned at Not on file Legal Sex Female 11:21 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 Gender Identity Not on file Sexual Orientation Not on file Last Filed Vital Signs Vital Sign Reading Time Taken Comments Blood Pressure 126/75 08/03/2016 10:12 AM CDT Pulse 84 08/03/2016 10:12 AM CDT Temperature 36.6 C (97.8 F) 09/14/2014 8:27 AM CDT Respiratory Rate 16 08/03/2016 10:12 AM CDT Oxygen Saturation - - Inhaled Oxygen Concentration - - Weight 74.4 kg (164 lb) 08/03/2016 10:12 AM CDT Height 157.5 cm (5' 2 ) 08/03/2016 10:12 AM CDT Body Mass Index 30 08/03/2016 10:12 AM CDT Plan of Treatment Health Maintenance Due Date Last Done Comments DTAP/TDAP/TD VACCINES (1 - Tdap) 1960 ZOSTER VACCINE (2 of 3) 03/13/2016 01/17/2016 RSV VACCINE (60+ or ) (1 - 1-dose 75+ series) 2016 OSTEOPOROSIS SCREENING 06/09/2017 06/09/2012, 2008 COLORECTAL SCREENING 01/27/2018 01/27/2013, 01/13/20 08 INFLUENZA VACCINE (#1) 2024 6, 02/01/2015, 01/22/2014, Additional history exists PNEUMOCOCCAL VACCINE 50+ YEARS Completed 06/07/2014 , 11/20/2006 Procedures Procedure Name Priority Date/Time Associated Diagnosis Comments XR DEXA BONE DENSITY AXIAL 1 OR MORE SITES Routine 06/09/2012 10:44 AM CDT Symptomatic menopausal or female climacteric states from Last 3 Months or Most Recently Relevant to Health Maintenance Results * XR DEXA BONE DENSITY AXIAL 1 OR MORE SITES (06/09/2012 10:44 AM CDT) Anatomical Region Laterality Modality Other Impressions 06/09/2012 10:59 AM CDT Impression: Since the previous examination of 05/13/2008 bone mineral density has very mildly worsened in both the lumbar spine and left hip. Narrative 06/09/2012 10:59 AM CDT DEXA Evaluation of the Lumbar Spine and Left Proximal Femur: Reason for Consultation: Status post menopause. Evaluation of bone mineral density. The following absorptiometry data were obtained. The overall technical quality of the study is good. Serial measurement number two. L1 Through L4 BMD (g/cm2): 1.196 Young adult %: 101 Adult T-score: 0.1 Adult Z-score: 1.5 Left Femoral Neck BMD (g/cm2): 0.979 Young adult %: 94 Adult T-score: -0.4 Adult Z-score: 1.1 Left Total Hip BMD (g/cm2): 1.045 Young adult %: 104 Adult T-score: 0.3 Adult Z-score: 1.6 The patient demonstrates normal bone mineral density of the trabecular bone of the lumbar spine. The amount of mineral is equivalent to a young normal, age 20 to 40. There is normal bone mineral density of the neck and total hip regions of the imaged hip. Procedure Note Alexis Mg MD - 05/25/2022 DEXA Evaluation of the Lumbar Spine and Left Proximal Femur: Reason for Consultation: Status post menopause. Evaluation of bone mineral density. The following absorptiometry data were obtained. The overall technical quality of the study is good. Serial measurement number two. L1 Through L4 BMD (g/cm2): 1.196 Young adult %: 101 Adult T-score: 0.1 Adult Z-score: 1.5 Left Femoral Neck BMD (g/cm2): 0.979 Young adult %: 94 Adult T-score: -0.4 Adult Z-score: 1.1 Left Total Hip BMD (g/cm2): 1.045 Young adult %: 104 Adult T-score: 0.3 Adult Z-score: 1.6 The patient demonstrates normal bone mineral density of the trabecular bone of the lumbar spine. The amount of mineral is equivalent to a young normal, age 20 to 40. There is normal bone mineral density of the neck and total hip regions of the imaged hip. IMPRESSION Impression: Since the previous examination of 05/13/2008 bone mineral density has very mildly worsened in both the lumbar spine and left hip. us Khanh Babcock MD DIAGNOSTIC IMAGING ORDERABLES Final Result from Last 3 Months or Most Recently Relevant to Health Maintenance
--- OUTSIDE RECORDS SUMMARY | 2024-11-09 17:30 | XMS_ITS | Encounter Summary ---
Author Organization [facility] Address [address] [place] [address] Care Team Providers Care Fiber Machine Tender Name Role Phone Khanh Babcock MD Primary Care Provider [phone] Encounter Details Date Type Department Care Team (Late st Contact Info) Description 01/03/2005 Outpatient Historical [facility] Verna Kiran MD NO ADDRESS ON FILE OT ABNORMAL RADIOLOG EXAM BREAST (Primary Dx) Social History Tobacco Use Types Packs/Day Years Used Date Smoking Tobacco: Never Assessed Comments Unknown Sex and Gender Information Value Date Recorded Sex Assigned at Not on file Legal 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
--- OUTSIDE RECORDS SUMMARY | 2024-11-09 17:30 | XMS_ITS | Clinical Summary ---
Author Organization [facility] Address [address] [place] [address] Care Team Providers Care Steam Power Plant Operator Name Role Phone Unavailable Primary Care Provider Unavailabl e Allergies Active Allergy Reactions Criticality Noted Date Comments Sulfa (Sulfonamide Antibiotics) Rash,Itching Low Medications aspirin (ENDY) 81 mg Oral Tab Take 81 mg by mouth daily. Active MULTIVITAMIN ORAL Take 1 Tab by mouth daily. Active CALCIUM CARBONATE/VITAMIN D3 (CALCIUM + D ORAL) Take 2 Tabs by mouth daily. Active metoprolol tartrate (LOPRESSOR) 100 mg tabletIndications :Chronic kidney disease, stage III (moderate) (CMS/HCC),Essenti al hypertension with goal blood pressure less than 140/90 Take 0.5 Tablet (50 mg) by mouth daily. 45 Tablet 3 12/12/2015 Active triamterene-hydro CHLOROthiazide (MAXZIDE 25) 37.5-25 mg tabletIndications :Essential hypertension with goal blood pressure less than 140/90 Take 1 Tablet by mouth daily. 90 Tablet 2 12/12/2015 Active atorvastatin (LIPITOR) 80 mg tabletIndications :Hypercholesterem ia Take 0.5 Tablet (40 mg) by mouth Daily LATE. 45 Tablet 2 12/12/2015 Active allopurinol (ZYLOPRIM) 300 mg tabletIndications :Idiopathic chronic gout of multiple sites without tophus Take 1 Tablet (300 mg) by mouth daily. 90 Tablet 3 03/01/2016 Active ibuprofen (MOTRIN) 800 mg tablet TAKE ONE TABLET BY MOUTH EVERY 8 HOURS NEEDED FOR PAIN , MILD 90 Tablet 3 09/07/2016 Active Active Problems Problem Noted Date Diagnosed Date Chronic kidney disease, stage III (moderate) 12/2014 History of colon cancer 06/09/2012 Overview (06/09/2012): 1995- no chemo, no radiation Idiopathic chronic gout of multiple sites withou t tophus 01/30/2010 Hypercholesteremia 08/21/2007 FHx: colon cancer 08/21/2007 FHx: breast cancer 08/21/2007 Essential hypertension with goal blood pressure less than 140/90 08/21/2007 Resolved Problems Problem Noted Date Diagnosed Date Resolved Date Radon exposure 08/03/2016 12/14/2016 Overview (08/03/2016): In home she lived in 14 yrs / worked in basement. 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 08/21/2007 06/09/2012 Overview (06/09/2012): Colon cancer in , Immunizations Immunization Administration [...] Cigarettes 2 18 0 03/25/1965 - 03/25/1983 Tobacco Cessation:Counseling Given: Yes Alcohol Use Standard Drinks/Week Comments Yes 0.8 (1 standard drink = 0.6 oz p ure alcohol) Comments No Sex and Gender Information Value Date Recorded Sex Assigned at Not on file 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 Gender Identity Not on file Sexual Orientation Not on file Occupation Industry Job Start Date Job End Date Not on file Not on file Not on file Not on file Last Filed Vital Signs Vital Sign Reading Time Taken Comments Blood Pressure 126/75 08/03/2016 10:12 AM CDT Pulse 84 08/03/2016 10:12 AM CDT Temperature 36.6 C (97.8 F) 09/14/2014 8:27 AM CDT Respiratory Rate 16 08/03/2016 10:12 AM CDT Oxygen Saturation 96% 08/03/2016 10:12 AM CDT Inhaled Oxygen Concentration - - Weight 74.4 [...] OSTEOPOROSIS SCREENING 06/09/2017 06/09/2012, 2008 COLORECTAL SCREENING 02/04/2018 02/04/2013, 01/27/2013, 01/13/2008, Additional history exists INFLUENZA VACCINE (#1) 2024 6, 02/01/2015, 01/22/2014, Additional history exists PNEUMOCOCCAL VACCINE 50+ YEARS Completed 06/07/2014 , 11/20/2006 Procedures Procedure Name Priority Date/Time Associated Diagnosis Comments XR DEXA BONE DENSITY AXIAL 1 OR MORE SITES Routine 06/09/2012 10:44 AM CDT Menopause ENDOSCOPY, COLON, DIAGNOSTIC Routine 01/13/2008 Personal History of Malignant Neoplasm of Large Intestine from Last 3 Months or Most Recently Relevant to Health Maintenance Results * XR DEXA BONE DENSITY AXIAL 1 OR MORE SITES (06/09/2012 10:44 AM CDT) Anatomical Region Laterality Modality Nuclear Medicine 06/09/2012 10:3 2 AM CDT Impressions 06/09/2012 10:59 AM CDT Impression: Since [...] hip. Procedure Note Alexis Mg MD - 06/09/2012 DEXA Evaluation of the Lumbar Spine and [...] Babcock MD DIAGNOSTIC IMAGING ORDERABLES Final Result * ENDOSCOPY, COLON, DIAGNOSTIC (01/13/2008) us Perry Ayala MD GI PROCEDURE ORDERABLES Fin al Result from Last 3 Months or Most Recently Relevant to Health Maintenance Advance Directives For more information, please contact: [phone] * Full Code (Latest Code Status on File) Date Activated Date Inactivated Comments 01/27/2013 8:14 AM 01/27/2013 12:32 PM
--- OUTSIDE RECORDS SUMMARY | 2024-11-09 17:30 | XMS_ITS | Encounter Summary ---
Author Organization [facility] Address [address] [place] [address] Care Team Providers Care Quality Assurance Director Name Role Phone Khanh Babcock MD Primary Care Provider [phone] Encounter Details Date Type Department Care Team (Latest Contact Info) Description 11/02/2004 Outpatient Historical [facility] [address] 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
--- OUTSIDE RECORDS SUMMARY | 2024-11-09 17:30 | XMS_ITS | Encounter Summary ---
Author Organization [facility] Address [address] [place] [address] Care Team Providers Care Flux Plant Operator Name Role Phone Khanh Babcock MD Primary Care Provider [phone] Encounter Details Date Type Department Care Team (Late st Contact Info) Description 12/13/2004 Outpatient [facility] Breast Center [facility] [address] [place] [address] Verna Kiran MD NO ADDRESS ON FILE SCREENING MAMM-MAILG NEOPL NEC (Primary Dx) Social History Tobacco Use Types Packs/Day Years Used Date Smoking Tobacco: Never Assessed Comments Unknown Sex and Gender Information Value Date Recorded Sex Assigned at Not on file Legal Sex Female 3: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
--- OUTSIDE RECORDS SUMMARY | 2024-11-09 17:30 | XMS_ITS | Encounter Summary ---
Author Organization [facility] Address [address] [place] [address] Care Team Providers Care Research Microbiologist Name Role Phone Khanh Babcock MD Primary Care Provider [phone] Reason for Referral * Outpatient Services (Routine) - Closed Specialty Diagnoses / Procedures Referred By Tabby nogueira Referred To Contact Diagnoses Other screening mammogram Procedures MAMMO DIGITAL SCREEN BILAT Meryl Steele MD [address] [place] [address] Phone: tel: fax: Referral ID Status Reason Start Date Expiration Date Visits Re quested Visits Authorized [id number] Closed 10/03/2009 04/01/2010 1 1 Encounter Details Date Type Department Care Team (Late st Contact Info) Description 10/03/2009 Ancillary Orders [facility] [address] [address] Meryl Steele MD [address] [place] [address] Other Screening Mammogram Social History Tobacco Use Types Packs/Day Years Used Date Smoking Tobacco: Former Cigarettes 2 18 0 03/25/1965 - 03/25/1983 Alcohol Use Standard Drinks/Week Comments Yes 0.8 (1 standard drink = 0.6 oz p ure alcohol) Comments Unknown Sex and Gender Information Value Date Recorded Sex Assigned at Not on file Legal Sex Female 3: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 This examination was reviewed with the aid of a computer-aided detection system(CAD). The breast tissue density is fatty. Reduction changes noted. No significant new findings since the prior mammogram(s). Procedure Note Al Jones MD - 11/02/2009 Bilateral Mammogram Reason for Exam: Screening Comparison: Comparison is made with the prior exam(s) dated 01.15.06 Findings: Bilateral CC and MLO views were obtained. This examination was reviewed with the aid of a computer-aided detectionsystem(CAD). The breast tissue density is fatty. Reduction changes noted. No significant new findings since the prior mammogram(s). Meryl Steele MD MAMMO ORDERABLES Final Resu lt documented in this encounter Visit Diagnoses Diagnosis Other screening mammogram Other screening mammogram documented in this encounter Care Teams Research Microbiologist Relationship Specialty Start Date End Date Khanh Babcock MD [address] [place] [phone] PCP - General Family Practice 01/27/10 12/13/16 documented as of this encounter
--- OUTSIDE RECORDS SUMMARY | 2024-11-09 17:30 | XMS_ITS | Encounter Summary ---
Author Organization [facility] Address [address] [place] [address] Care Team Providers Care Supervisor Of Instruction Name Role Phone Khanh Babcock MD Primary Care Provider [phone] Encounter Details Date Type Department Care Team (Latest Contact Info) Description 11/20/2006 Outpatient Historical [facility] Family Medicine [address] 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
--- OUTSIDE RECORDS SUMMARY | 2024-11-09 17:30 | XMS_ITS | Encounter Summary ---
Author Organization [facility] Address [address] [place] [address] Care Team Providers Care Casting Room Operator Name Role Phone Khanh Babcock MD Primary Care Provider [phone] Encounter Details Date Type Department Care Team (Latest Contact Info) Description 12/18/2007 Outpatient Historical [facility] End[facility] [place] [address] [place] [phone] Perry Ayala MD [address] [facility] [address] [place] [address] Benign Neoplasm of Colon; Diverticulosis of Colon (without Mention of Hemorrhage); Unspecified Essential Hypertension; Personal History of Malignant Neoplasm of Large Intestine Social History Tobacco Use Types Packs/Day Years Used Date Smoking Tobacco: Former Cigarettes 2 18 0 03/25/1965 - 03/25/1983 Alcohol Use Standard Drinks/Week Comments Yes 0.8 (1 standard drink = 0.6 oz p ure alcohol) Comments Unknown Sex and Gender Information Value Date Recorded Sex Assigned at Not on file Legal Sex Female 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 Colon, sigmoid, biopsy - tubular adenoma, six fragments - benign colonic mucosal tissue with no specific pathologic diagnosis, one fragment. Grabiel Chan M.D. (Electronicall y signed by) Verified: 01/14/08 DD /CEP Clinical Information Polyp. Specimen Source AColon, SIGMOID Microscopic Description Microscopic examination was performed. Gross Description Part A. Submitted in a container of formalin labelled Zachary - sigmoid colon polyp #1 are seven pinkish-retana soft tissue fragments ranging in size from 0.2 to 0.7 cm. The specimen is submitted entirely in A1-A2. Cassette Summary: A1 - four fragments A2 - three fragments DLS/WLS INTERFACE SYSTEM 01/13/2008 2:47 PM CDT us Perry Ayala MD PATHOLOGY/CYTOLOGY ORDERABL ES Final Result INTERFACE SYSTEM Refer to clinic/hospital department documented in this encounter Visit Diagnoses Diagnosis Benign neoplasm of colon Diverticulosis of colon (without mention of hemorrhage) Unspecified essential hypertension Personal history of malignant neoplasm of large intestine documented in this encounter Care Teams Casting Room Operator Relationship Specialty Start Date End Date Khanh Babcock MD [address] [place] [phone] PCP - General Family Practice 01/27/10 12/13/16 documented as of this encounter
--- OUTSIDE RECORDS SUMMARY | 2024-11-09 17:30 | XMS_ITS | Encounter Summary ---
Author Organization [facility] Address [address] [place] [address] Care Team Providers Care Hands Parter Name Role Phone Khanh Babcock MD Primary Care Provider [phone] Encounter Details Date Type Department Care Team (Latest Contact Info) Description 01/15/2006 Outpatient [facility] [address] [facility] [address] [place] [address] Karen Fletcher MD NO ADDRESS ON FILE Other Sign and Symptom in Breast (Primary Dx) Social History Tobacco Use Types Packs/Day Years Used Date Smoking Tobacco: Never Assessed Comments Unknown Sex and Gender Information Value Date Recorded Sex Assigned at Not on file Legal Sex Female 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
--- OUTSIDE RECORDS SUMMARY | 2024-11-09 17:30 | XMS_ITS | Encounter Summary ---
Author Organization [facility] Address [address] [place] [address] Care Team Providers Care Trolley Coach Driver Name Role Phone Khanh Babcock MD Primary Care Provider [phone] Encounter Details Date Type Department Care Team (Latest Contact Info) Description 11/06/2004 Outpatient [facility] Gastroenterology[address] [place] [phone] Perry Ayala MD [address] [facility] [address] [place] [address] PERS HX OF COLONIC MALIGNANCY (Primary Dx) Social History Tobacco Use Types Packs/Day Years Used Date Smoking Tobacco: Never Assessed Comments Unknown Sex and Gender Information Value Date Recorded Sex Assigned at Not on file Legal Sex Female 3:39 AM GENERAL PURCHASING AGENT Gender Identity Not on file Sexual Orientation Not on file documented as of this encounter Plan of Treatment Not on file documented as of this encounter Visit Diagnoses Diagnosis Personal history of malignant neoplasm of large intestine- Primary documented in this encounter Care Teams Trolley Coach Driver Relationship Specialty Start Date End Date Khanh Babcock MD [address] [place] [phone] PCP - General Family Practice 01/27/10 12/13/16 documented as of this encounter
--- OUTSIDE RECORDS SUMMARY | 2024-11-09 17:30 | XMS_ITS | Encounter Summary ---
Author Organization [facility] Address [address] [place] [address] Care Team Providers Care Pulmonology Physician Name Role Phone Khanh Babcock MD Primary Care Provider [phone] Encounter Details Date Type Department Care Team (Late st Contact Info) Description 01/03/2005 Outpatient [facility] [address] [facility] [address] [place] [address] Wendy Rosas MD NO ADDRESS ON FILE SYMPTOMS IN BREAST NEC (Primary Dx) Social History Tobacco Use Types Packs/Day Years Used Date Smoking Tobacco: Never Assessed Comments Unknown Sex and Gender Information Value Date Recorded Sex Assigned at Not on file Legal Sex Female 3:39 AM AUTO REFINISHER Gender Identity Not on file Sexual Orientation Not on file documented as of this encounter Plan of Treatment Not on file documented as of this encounter Visit Diagnoses Diagnosis Other sign and symptom in breast- Primary documented in this encounter Care Teams Pulmonology Physician Relationship Specialty Start Date End Date Khanh Babcock MD [address] [place] [phone] PCP - General Family Practice 01/27/10 12/13/16 documented as of this encounter
--- OUTSIDE RECORDS SUMMARY | 2024-11-09 17:30 | XMS_ITS | Encounter Summary ---
Author Organization [facility] Address [address] [place] [address] Care Team Providers Care Security Compliance Engineer Name Role Phone Khanh Babcock MD Primary Care Provider [phone] Encounter Details Date Type Department Care Team (Late st Contact Info) Description 07/09/2005 Outpatient Historical [facility] ADMISSION Verna Kiran MD NO ADDRESS ON FILE Social History Tobacco Use Types Packs/Day Years Used Date Smoking Tobacco: Never Assessed Comments Unknown Sex and Gender Information Value Date Recorded Sex Assigned at Not on file Legal Sex Female 3:39 AM AUTOMOTIVE SOFTWARE ENGINEER Gender Identity Not on file Sexual Orientation Not on file documented as of this encounter Plan of Treatment Not on file documented as of this encounter Visit Diagnoses Not on filedocumented in this encounter Care Teams Security Compliance Engineer Relationship Specialty Start Date End Date Khanh Babcock MD [address] [place] [phone] PCP - General Family Practice 01/27/10 12/13/16 documented as of this encounter
--- OUTSIDE RECORDS SUMMARY | 2024-11-09 17:30 | XMS_ITS | Encounter Summary ---
Author Organization [facility] Address [address] [place] [address] Care Team Providers Care Rhic Systems Safety Engineer Name Role Phone Khanh Babcock MD Primary Care Provider [phone] Reason for Referral * Outpatient Services (Routine) - Closed Specialty Diagnoses / Procedures Referred By Tabby nogueira Referred To Contact Diagnoses Other screening mammogram Procedures MAMMO DIGITAL SCREEN BILAT Khanh Babcock MD [address] [place] [address] Phone: tel: fax: Referral ID Status Reason Start Date Expiration Date Visits Re quested Visits Authorized [id number] Closed 10/30/2010 10/30/2011 1 1 Encounter Details Date Type Department Care Team (Latest Contact Info) Description 10/30/2010 Ancillary Orders [facility] Pre-Registration [place] CALL TO MAKE APPOINTMENT ONLY [address] [place] [address] Khanh Babcock MD [address] [place] [address] Other screening mammogram Social History Tobacco Use Types Packs/Day Years Used Date Smoking Tobacco: Former Cigarettes 2 18 0 03/25/1965 - 03/25/1983 Alcohol Use Standard Drinks/Week Comments Yes 0.8 (1 standard drink = 0.6 oz p ure alcohol) Comments No Sex and Gender Information Value Date Recorded Sex Assigned at Not on file Legal Sex Female 3:39 AM MUD TRUCKER Gender Identity Not on file Sexual Orientation Not on file documented as of this encounter Plan of Treatment Not on file documented as of this encounter Results * MAMMO DIGITAL SCREEN BILAT (11/29/2010 9:08 AM CDT) Anatomical Region Laterality Modality Breast Bilateral Mammography Narrative 11/30/2010 5:00 PM CDT Bilateral Mammogram Reason for Exam: Screening Comparison: Comparison is made with the prior exam(s) dated 01.15.06, 11.01.09 Findings: Bilateral CC and MLO views were obtained. This examination was reviewed with the aid of a computer-aided detection system(CAD). The breast tissue density is average. Asymmetric breast tissue is noted. No significant new findings since the prior mammogram(s). Procedure Note Wendy Rosas MD - 11/30/2010 Bilateral Mammogram Reason for Exam: Screening Comparison: Comparison is made with the prior exam(s) dated 01.15.06,11.01.09 Findings: Bilateral CC and MLO views were [...] mammogram documented in this encounter Care Teams Rhic Systems Safety Engineer Relationship Specialty Start Date End Date Khanh Babcock MD [address] [place] [phone] PCP - General Family Practice 01/27/10 12/13/16 documented as of this encounter
--- OUTSIDE RECORDS SUMMARY | 2024-11-09 18:28 | XMS_ITS | Encounter Summary ---
Author Organization [facility] Address [address] [place] [address] Care Team Providers Care Supervisor Pipeline Maintenance Name Role Phone Khanh Babcock MD Primary Care Provider [phone] Reason for Referral * Outpatient Services (Routine) - Closed Specialty Diagnoses / Procedures Referred By Tabby nogueira Referred To Contact Diagnoses Other screening mammogram Procedures MAMMO DIGITAL SCREEN BILAT Khanh Babcock MD [address] [place] [address] Phone: tel: fax: Referral ID Status Reason Start Date Expiration Date Visits Re quested Visits Authorized [id number] Closed 10/30/2010 10/30/2011 1 1 Encounter Details Date Type Department Care Team (Latest Contact Info) Description 10/30/2010 Ancillary Orders [facility] Pre-Registration [place] CALL TO MAKE APPOINTMENT ONLY [address] [place] [address] Khanh Babcock MD [address] [place] [address] Other screening mammogram Social History Tobacco Use Types Packs/Day Years Used Date Smoking Tobacco: Former Cigarettes 2 18 0 03/25/1965 - 03/25/1983 Alcohol Use Standard Drinks/Week Comments Yes 0.8 (1 standard drink = 0.6 oz p ure alcohol) Comments No Sex and Gender Information Value Date Recorded Sex Assigned at Not on file Legal Sex Female 3:39 AM COPIER TECHNICIAN Gender Identity Not on file Sexual [...] mammogram documented in this encounter Care Teams Supervisor Pipeline Maintenance Relationship Specialty Start Date End Date Khanh Babcock MD [address] [place] [phone] PCP - General Family Practice 01/27/10 12/13/16 documented as of this encounter
--- OUTSIDE RECORDS SUMMARY | 2024-11-09 18:28 | XMS_ITS | Encounter Summary ---
Author Organization [facility] Address [address] [place] [address] Care Team Providers Care Helicopter Mechanic Name Role Phone Khanh Babcock MD Primary Care Provider [phone] Encounter Details Date Type Department Care Team (Latest Contact Info) Description 12/13/2004 Outpatient [facility] [address] [facility] [address] [place] [address] Karen Fletcher MD NO ADDRESS ON FILE SCREENING MAMM-MAILG NEOPL NEC (Primary Dx) Social History Tobacco Use Types Packs/Day Years Used Date Smoking Tobacco: Never Assessed Comments Unknown Sex and Gender Information Value Date Recorded Sex Assigned at Not on file Legal Sex Female 3:39 AM HVAC ESTIMATOR Gender Identity Not on file Sexual Orientation Not on file documented as of this encounter Plan of Treatment Not on file documented as of this encounter Visit Diagnoses Diagnosis Other screening mammogram- Primary documented in this encounter Care Teams Helicopter Mechanic Relationship Specialty Start Date End Date Khanh Babcock MD [address] [place] [phone] PCP - General Family Practice 01/27/10 12/13/16 documented as of this encounter
--- OUTSIDE RECORDS SUMMARY | 2024-11-09 18:28 | XMS_ITS | Encounter Summary ---
Author Organization [facility] Address [address] [place] [address] Care Team Providers Care Iron Worker Name Role Phone Khanh Babcock MD Primary Care Provider [phone] Reason for Referral * Outpatient Services (Routine) - Closed Specialty Diagnoses / Procedures Referred By Tabby nogueira Referred To Contact Diagnoses Other screening mammogram Procedures MAMMO DIGITAL SCREEN BILAT Khanh Babcock MD [address] [place] [phone] Phone: tel: fax: Referral ID Status Reason Start Date Expiration Date Visits Re quested Visits Authorized [id number] Closed 03/09/2014 04/09/2015 1 1 RAISER Encounter Details Date Type Department Care Team (Latest Contact Info) Description 03/09/2014 Ancillary Orders [facility] Pre-Registration [place] CALL TO MAKE APPOINTMENT ONLY [address] [place] [address] Khanh Babcock MD [address] [place] [address] Other screening mammogram (Primary Dx) Social History Tobacco Use Types Packs/Day Years Used Date Smoking Tobacco: Former Cigarettes 2 18 0 03/25/1965 - 03/25/1983 Alcohol Use Standard Drinks/Week Comments Yes 0.8 (1 standard drink = 0.6 oz p ure alcohol) Comments No Sex and Gender Information Value Date Recorded Sex Assigned at Not on file Legal Sex Female 3:39 AM KEG RAISER Gender Identity Not on file Sexual Orientation Not on file Occupation Industry Job Start Date Job End Date Not on file Not on file Not on file Not on file documented as of this encounter Plan of Treatment Not on file documented as of this encounter Results * MAMMO DIGITAL SCREEN BILAT (03/30/2014 11:23 AM KEG RAISER) Anatomical Region Laterality Modality Breast Bilateral Mammography Narrative 03/31/2014 1:35 PM KEG RAISER Bilateral Mammogram Reason for Exam: Screening Comparison: [...] documented as of this encounter Care Teams Iron Worker Relationship Specialty Start Date End Date Khanh Babcock MD [address] [place] [phone] PCP - General Family Practice 01/27/10 12/13/16 documented as of this encounter
--- OUTSIDE RECORDS SUMMARY | 2024-11-09 18:28 | XMS_ITS | Encounter Summary ---
Author Organization [facility] Address [address] [place] [address] Care Team Providers Care Sliver Cutter Name Role Phone Khanh Babcock MD Primary Care Provider Encounter Details Date Type Department Care Team (Latest Contact Info) Description 11/02/2004 Outpatient Historical [facility] Family Medicine [address] [place] [phone] Verna Kiran MD NO ADDRESS ON FILE HYPERTENSION NOS (Primary Dx); HYPERLIPIDEMIA NEC/NOS Social History Tobacco Use Types Packs/Day Years Used Date Smoking Tobacco: Never Assessed Comments Unknown Sex and Gender Information Value Date Recorded Sex Assigned at Not on file Legal Sex Female 3:39 AM SUPPORT STAFF Gender Identity Not on file Sexual Orientation Not on file documented as of this encounter Plan of Treatment Not on file documented as of this encounter Visit Diagnoses Diagnosis Unspecified essential hypertension- Primary Other and unspecified hyperlipidemia documented in this encounter Care Teams Sliver Cutter Relationship Specialty Start Date End Date Khanh Babcock MD [address] [place] [phone] PCP - General Family Practice 01/27/10 12/13/16 documented as of this encounter
--- OUTSIDE RECORDS SUMMARY | 2024-11-09 18:28 | XMS_ITS | Clinical Summary ---
Author Organization [facility] Address [address] [facility] [address]: [place] [address] Care Team Providers Care Mixed Livestock Farmer Name Role Phone Unavailable Primary Care Provider [...] on file Legal Sex Female 11:21 AM INTERNAL REVENUE SERVICE AGENT Gender Identity Not on file Sexual [...]
--- OUTSIDE RECORDS SUMMARY | 2024-11-09 18:28 | XMS_ITS | Encounter Summary ---
Author Organization [facility] Address [address] [place] [address] Care Team Providers Care Merchandise Distributor Name Role Phone Khanh Babcock MD Primary Care Provider [phone] Reason for Referral * Outpatient Services (Routine) - Closed Specialty Diagnoses / Procedures Referred By Tabby nogueira Referred To Contact Diagnoses Other screening mammogram Procedures MAMMO DIGITAL SCREEN BILAT Meryl Steele MD [address] [place] [address] Phone: tel: fax: Referral ID Status Reason Start Date Expiration Date Visits Re quested Visits Authorized [id number] Closed 10/03/2009 04/01/2010 1 1 Encounter Details Date Type Department Care Team (Late st Contact Info) Description 10/03/2009 Ancillary Orders [facility] [address] [address] Meryl Steele MD [address] [place] [address] Other Screening Mammogram Social History Tobacco Use Types Packs/Day Years Used Date Smoking Tobacco: Former Cigarettes 2 18 0 03/25/1965 - 03/25/1983 Alcohol Use Standard Drinks/Week Comments Yes 0.8 (1 standard drink = 0.6 oz p ure alcohol) Comments Unknown Sex and Gender Information Value Date Recorded Sex Assigned at Not on file Legal Sex Female 3:39 AM CUSTOMER SERVICE ADVOCATE Gender Identity Not on file Sexual Orientation [...] mammogram documented in this encounter Care Teams Merchandise Distributor Relationship Specialty Start Date End Date Khanh Babcock MD [address] [place] [phone] PCP - General Family Practice 01/27/10 12/13/16 documented as of this encounter
--- OUTSIDE RECORDS SUMMARY | 2024-11-09 18:28 | XMS_ITS | Encounter Summary ---
Author Organization [facility] Address [address] [place] [address] Care Team Providers Care Mergers And Acquisitions Manager Name Role Phone Khanh Babcock MD Primary Care Provider [phone] Encounter Details Date Type Department Care Team (Latest Contact Info) Description 10/03/2004 Outpatient Historical [facility] Op[facility] [address] [place] [address] Edna Elena MD [address] [place] [address] TEAR FILM INSUFFIC NOS (Primary Dx); CORNEAL OPACITY NOS; SENILE CATARACT NOS Social History Tobacco Use Types Packs/Day Years Used Date Smoking Tobacco: Never Assessed Comments Unknown Sex and Gender Information Value Date Recorded Sex Assigned at Not on file Legal Sex Female 3:39 AM CREDIT RISK ASSOCIATE Gender Identity Not on file Sexual Orientation Not on file documented as of this encounter Plan of Treatment Not on file documented as of this encounter Visit Diagnoses Diagnosis Tear film insufficiency, unspecified- Primary Corneal opacity, unspecified Senile cataract, unspecified documented in this encounter Care Teams Mergers And Acquisitions Manager Relationship Specialty Start Date End Date Khanh Babcock MD [address] [place] [phone] PCP - General Family Practice 01/27/10 12/13/16 documented as of this encounter
--- OUTSIDE RECORDS SUMMARY | 2024-11-09 18:28 | XMS_ITS | Encounter Summary ---
Author Organization [facility] Address [address] [place] [address] Care Team Providers Care Senior Database Administrator Name Role Phone Khanh Babcock MD Primary Care Provider [phone] Encounter Details Date Type Department Care Team (Late st Contact Info) Description 01/03/2005 Outpatient Historical [facility] Verna Kiran MD NO ADDRESS ON FILE OT ABNORMAL RADIOLOG EXAM BREAST (Primary Dx) Social History Tobacco Use Types Packs/Day Years Used Date Smoking Tobacco: Never Assessed Comments Unknown Sex and Gender Information Value Date Recorded Sex Assigned at Not on file Legal Sex Female 3:39 AM MANAGER FUNCTIONAL Gender Identity Not on file Sexual Orientation Not on file documented as of this encounter Plan of Treatment Not on file documented as of this encounter Visit Diagnoses Diagnosis Other (abnormal) findings on radiological examination of breast- Primary documented in this encounter Care Teams Senior Database Administrator Relationship Specialty Start Date End Date Khanh Babcock MD [address] [place] [phone] PCP - General Family Practice 01/27/10 12/13/16 documented as of this encounter
--- OUTSIDE RECORDS SUMMARY | 2024-11-09 18:28 | XMS_ITS | Encounter Summary ---
Author Organization [facility] Address [address] [place] [address] Care Team Providers Care Sociology Instructor Name Role Phone Khanh Babcock MD Primary Care Provider [phone] Encounter Details Date Type Department Care Team (Late st Contact Info) Description 01/03/2005 Outpatient [facility] [address] [facility] [address] [place] [address] Wendy Rosas MD NO ADDRESS ON FILE SYMPTOMS IN BREAST NEC (Primary Dx) Social History Tobacco Use Types Packs/Day Years Used Date Smoking Tobacco: Never Assessed Comments Unknown Sex and Gender Information Value Date Recorded Sex Assigned at Not on file Legal Sex Female 3:39 AM TOWER OPERATOR Gender Identity Not on file Sexual Orientation Not on file documented as of this encounter Plan of Treatment Not on file documented as of this encounter Visit Diagnoses Diagnosis Other sign and symptom in breast- Primary documented in this encounter Care Teams Sociology Instructor Relationship Specialty Start Date End Date Khanh aBbcock MD [address] [place] [phone] PCP - General Family Practice 01/27/10 12/13/16 documented as of this encounter
--- OUTSIDE RECORDS SUMMARY | 2024-11-09 18:28 | XMS_ITS | Encounter Summary ---
Author Organization [facility] Address [address] [place] [address] Care Team Providers Care Sales Administration Specialist Name Role Phone Khanh Babcock MD Primary Care Provider [phone] Encounter Details Date Type Department Care Team (Latest Contact Info) Description 07/11/2005 Outpatient Historical [facility] Family Medicine [address] [place] [phone] Verna Kiran MD NO ADDRESS ON FILE Unspecified Essential Hypertension (Primary Dx); Other and Unspecified Hyperlipidemia Social History Tobacco Use Types Packs/Day Years Used Date Smoking Tobacco: Never Assessed Comments Unknown Sex and Gender Information Value Date Recorded Sex Assigned at Not on file Legal Sex Female 3:39 AM AS400 DEVELOPER Gender Identity Not on file Sexual Orientation Not on file documented as of this encounter Plan of Treatment Not on file documented as of this encounter Visit Diagnoses Diagnosis Unspecified essential hypertension- Primary Other and unspecified hyperlipidemia documented in this encounter Care Teams Sales Administration Specialist Relationship Specialty Start Date End Date Khanh Babcock MD [address] [place] [phone] PCP - General Family Practice 01/27/10 12/13/16 documented as of this encounter
--- OUTSIDE RECORDS SUMMARY | 2024-11-09 18:28 | XMS_ITS | Encounter Summary ---
Author Organization [facility] Address [address] [place] [address] Care Team Providers Care Machine Lead Burner Name Role Phone Khanh Babcock MD Primary Care Provider [phone] Encounter Details Date Type Department Care Team (Late st Contact Info) Description 04/30/2008 Ancillary Orders [facility] [address] [address] Meryl Steele MD [address] [place] [address] Screening Mammogram Social History Tobacco Use Types Packs/Day Years Used Date Smoking Tobacco: Former Cigarettes 2 18 0 03/25/1965 - 03/25/1983 Alcohol Use Standard Drinks/Week Comments Yes 0.8 (1 standard drink = 0.6 oz p ure alcohol) Comments Unknown Sex and Gender Information Value Date Recorded Sex Assigned at Not on file Legal Sex Female 3:39 AM CRIME LABORATORY ANALYST Gender Identity Not on file Sexual [...] mammogram documented in this encounter Care Teams Machine Lead Burner Relationship Specialty Start Date End Date Khanh Babcock MD [address] [place] [phone] PCP - General Family Practice 01/27/10 12/13/16 documented as of this encounter
--- OUTSIDE RECORDS SUMMARY | 2024-11-09 18:28 | XMS_ITS | Encounter Summary ---
Author Organization [facility] Address [address] [place] [address] Care Team Providers Care Triage Specialist Name Role Phone Khanh Babcock MD Primary Care Provider [phone] Encounter Details Date Type Department Care Team (Late st Contact Info) Description 08/22/2007 Outpatient Historical [facility] Cardiovascular Services [address] [place] [address] Meryl Steele MD [address] [place] [address] Social History Tobacco Use Types Packs/Day Years Used Date Smoking Tobacco: Former Cigarettes 2 18 0 03/25/1965 - 03/25/1983 Alcohol Use Standard Drinks/Week Comments Yes 0.8 (1 standard drink = 0.6 oz p ure alcohol) Comments Unknown Sex and Gender Information Value Date Recorded Sex Assigned at Not on file Legal Sex Female 3:39 AM COMPOSITION WEATHERBOARD INSTALLER Gender Identity Not on file Sexual Orientation Not on file documented as of this encounter Plan of Treatment Not on file documented as of this encounter Visit Diagnoses Not on filedocumented in this encounter Care Teams Triage Specialist Relationship Specialty Start Date End Date Khanh Babcock MD [address] [place] [phone] PCP - General Family Practice 01/27/10 12/13/16 documented as of this encounter
--- OUTSIDE RECORDS SUMMARY | 2024-11-09 18:28 | XMS_ITS | Encounter Summary ---
Author Organization [facility] Address [address] [place] [address] Care Team Providers Care Business Intelligence Developer Name Role Phone Khanh Babcock MD Primary Care Provider [phone] Encounter Details Date Type Department Care Team (Late st Contact Info) Description 09/04/2004 Outpatient Historical [facility] Family Medicine [address] [place] [phone] Verna Kiran MD NO ADDRESS ON FILE Social History Tobacco Use Types Packs/Day Years Used Date Smoking Tobacco: Never Assessed Comments Unknown Sex and Gender Information Value Date Recorded Sex Assigned at Not on file Legal Sex Female 3:39 AM DEPOSIT CLERK Gender Identity Not on file Sexual Orientation Not on file documented as of this encounter Plan of Treatment Not on file documented as of this encounter Visit Diagnoses Not on filedocumented in this encounter Care Teams Business Intelligence Developer Relationship Specialty Start Date End Date Khanh Babcock MD [address] [place] [phone] PCP - General Family Practice 01/27/10 12/13/16 documented as of this encounter
--- OUTSIDE RECORDS SUMMARY | 2024-11-09 18:28 | XMS_ITS | Encounter Summary ---
Author Organization [facility] Address [address] [place] [address] Care Team Providers Care Strip Machine Tender Name Role Phone Khanh Babcock MD Primary Care Provider [phone] Encounter Details Date Type Department Care Team (Late st Contact Info) Description 07/09/2005 Outpatient Historical [facility] CANCELLED ADMISSION Verna Kiran MD NO ADDRESS ON FILE Social History Tobacco Use Types Packs/Day Years Used Date Smoking Tobacco: Never Assessed Comments Unknown Sex and Gender Information Value Date Recorded Sex Assigned at Not on file Legal Sex Female 3:39 AM MANAGER ZONE Gender Identity Not on file Sexual Orientation Not on file documented as of this encounter Plan of Treatment Not on file documented as of this encounter Visit Diagnoses Not on filedocumented in this encounter Care Teams Strip Machine Tender Relationship Specialty Start Date End Date Khanh Babcock MD [address] [place] [phone] PCP - General Family Practice 01/27/10 12/13/16 documented as of this encounter
--- OUTSIDE RECORDS SUMMARY | 2024-11-09 18:28 | XMS_ITS | Encounter Summary ---
Author Organization [facility] Address [address] [place] [address] Care Team Providers Care Aircraft Refueler Name Role Phone Khanh Babcock MD Primary Care Provider [phone] Encounter Details Date Type Department Care Team (Latest Contact Info) Description 01/15/2006 Outpatient [facility] [address] [facility] [address] [place] [address] Karen Fletcher MD NO ADDRESS ON FILE Other Sign and Symptom in Breast (Primary Dx) Social History Tobacco Use Types Packs/Day Years Used Date Smoking Tobacco: Never Assessed Comments Unknown Sex and Gender Information Value Date Recorded Sex Assigned at Not on file Legal Sex Female 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
--- OUTSIDE RECORDS SUMMARY | 2024-11-09 18:28 | XMS_ITS | Encounter Summary ---
Author Organization [facility] Address [address] [place] [address] Care Team Providers Care License And Permit Specialist Name Role Phone Khanh Babcock MD Primary Care Provider [phone] Encounter Details Date Type Department Care Team (Latest Contact Info) Description 11/06/2004 Outpatient [facility] Gastroenterology[address] [place] [phone] Perry Ayala MD [address] [facility] [address] [place] [address] PERS HX OF COLONIC MALIGNANCY (Primary Dx) Social History Tobacco Use Types Packs/Day Years Used Date Smoking Tobacco: Never Assessed Comments Unknown Sex and Gender Information Value Date Recorded Sex Assigned at Not on file Legal Sex Female 3:39 AM PRODUCT SPECIALIST Gender Identity Not on file Sexual Orientation Not on file documented as of this encounter Plan of Treatment Not on file documented as of this encounter Visit Diagnoses Diagnosis Personal history of malignant neoplasm of large intestine- Primary documented in this encounter Care Teams License And Permit Specialist Relationship Specialty Start Date End Date Khanh Babcock MD [address] [place] [phone] PCP - General Family Practice 01/27/10 12/13/16 documented as of this encounter
--- OUTSIDE RECORDS SUMMARY | 2024-11-09 18:28 | XMS_ITS | Encounter Summary ---
Author Organization [facility] Address [address] [place] [address] Care Team Providers Care Tree Faller Name Role Phone Khanh Babcock MD Primary Care Provider [phone] Encounter Details Date Type Department Care Team (Latest Contact Info) Description 11/07/2004 Outpatient Historical [facility] [address] [place] [address] [place] [address] [place] [address] Edna Elena MD [address] [place] [address] [place] [phone] ENDOTHEL CORNEA DYSTRPHY (Primary Dx); SENILE CATARACT NOS; CORNEAL OPACITY NOS Social History Tobacco Use Types Packs/Day Years Used Date Smoking Tobacco: Never Assessed Comments Unknown Sex and Gender Information Value Date Recorded Sex Assigned at Not on file Legal Sex Female 3:39 AM RADIO MESSAGE ROUTER Gender Identity Not on file Sexual Orientation Not on file documented as of this encounter Plan of Treatment Not on file documented as of this encounter Visit Diagnoses Diagnosis Endothelial corneal dystrophy- Primary Senile cataract, unspecified Corneal opacity, unspecified documented in this encounter Care Teams Tree Faller Relationship Specialty Start Date End Date Khanh Babcock MD [address] [place] [phone] PCP - General Family Practice 01/27/10 12/13/16 documented as of this encounter
--- OUTSIDE RECORDS SUMMARY | 2024-11-09 18:28 | XMS_ITS | Clinical Summary ---
Author Organization [facility] Address [address] [place] [address] Care Team Providers Care Extrusion Die Template Maker Name Role Phone Unavailable Primary Care Provider [...] on file Legal Sex Female 3:39 AM PULPWOOD BUYER Gender Identity Not on file Sexual Orientation [...] Advance Directives For more information, please contact: [phone] * Full Code (Latest Code Status on File) Date Activated Date Inactivated Comments 01/27/2013 8:14 AM 01/27/2013 12:32 PM
--- OUTSIDE RECORDS SUMMARY | 2024-11-09 18:28 | XMS_ITS | Encounter Summary ---
Author Organization [facility] Address [address] [place] [address] Care Team Providers Care Medical Facilities Section Director Name Role Phone Khanh Babcock MD Primary Care Provider Encounter Details Date Type Department Care Team (Latest Contact Info) Description 11/20/2006 Outpatient Historical [facility] Family Medicine [address] [place] [address] Verna Kiran MD NO ADDRESS ON FILE Routine Gynecological Examination (Primary Dx) Social History Tobacco Use Types Packs/Day Years Used Date Smoking Tobacco: Never Assessed Comments Unknown Sex and Gender Information Value Date Recorded Sex Assigned at Not on file Legal Sex Female 3:39 AM TRANSLATOR AND INTERPRETER Gender Identity Not on file Sexual Orientation Not on file documented as of this encounter Plan of Treatment Not on file documented as of this encounter Visit Diagnoses Diagnosis Routine gynecological examination- Primary documented in this encounter Care Teams Medical Facilities Section Director Relationship Specialty Start Date End Date Khanh Babcock MD [address] [place] [phone] PCP - General Family Practice 01/27/10 12/13/16 documented as of this encounter
--- OUTSIDE RECORDS SUMMARY | 2024-11-09 18:28 | XMS_ITS | Encounter Summary ---
Author Organization [facility] Address [address] [place] [address] Care Team Providers Care Swing Manager Name Role Phone Khanh Babcock MD Primary Care Provider [phone] Reason for Referral * Outpatient Services (Routine) - Closed Specialty Diagnoses / Procedures Referred By Tabby t Referred To Contact Radiology Diagnoses Other screening mammogram Procedures MAMMO DIGITAL SCREEN BILAT Khanh Babcock MD [address] [place] [phone] Phone: tel: fax: [facility] [address] [phone] Phone: tel: fax: Referral ID Status Reason Start Date Expiration Date Visits Re quested Visits Authorized [id number] Closed 01/30/2013 03/02/2014 1 1 RY PRODUCTS CHECKER Encounter Details Date Type Department Care Team (Latest Contact Info) Description 01/30/2013 Ancillary Orders [facility] Pre-Registration [place] CALL TO MAKE APPOINTMENT ONLY [address] [place] [address] Khanh Babcock MD [address] [place] [phone] Other screening mammogram (Primary Dx) Social History Tobacco Use Types Packs/Day Years Used Date Smoking Tobacco: Former Cigarettes 2 18 0 03/25/1965 - 03/25/1983 Alcohol Use Standard Drinks/Week Comments Yes 0.8 (1 standard drink = 0.6 oz p ure alcohol) Comments No Sex and Gender Information Value Date Recorded Sex Assigned at Not on file Legal Sex Female 3:39 AM BAKERY PRODUCTS CHECKER Gender Identity Not on file Sexual Orientation Not on file Occupation Industry Job Start Date Job End Date Not on file Not on file Not on file Not on file documented as of this encounter Plan of Treatment Not on file documented as of this encounter Results * MAMMO DIGITAL SCREEN BILAT (02/26/2013 8:40 AM BAKERY PRODUCTS CHECKER) Anatomical Region Laterality Modality Breast Bilateral Mammography Narrative 02/27/2013 11:11 AM BAKERY PRODUCTS CHECKER Bilateral Mammogram Reason for Exam: Screening Comparison: [...] mammogram documented in this encounter Care Teams Swing Manager Relationship Specialty Start Date End Date Khanh Babcock MD [address] [place] [phone] PCP - General Family Practice 01/27/10 12/13/16 documented as of this encounter
--- OUTSIDE RECORDS SUMMARY | 2024-11-09 18:28 | XMS_ITS | Encounter Summary ---
Author Organization [facility] Address [address] [place] [address] Care Team Providers Care Grounds/Maintenance Specialist Name Role Phone Khanh Babcock MD Primary Care Provider [phone] Encounter Details Date Type Department Care Team (Late st Contact Info) Description 12/13/2004 Outpatient [facility] [address] [place] [address] Verna Kiran MD NO ADDRESS ON FILE SCREENING MAMM-MAILG NEOPL NEC (Primary Dx) Social History Tobacco Use Types Packs/Day Years Used Date Smoking Tobacco: Never Assessed Comments Unknown Sex and Gender Information Value Date Recorded Sex Assigned at Not on file Legal Sex Female 3: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
--- OUTSIDE RECORDS SUMMARY | 2024-11-09 18:28 | XMS_ITS | Encounter Summary ---
Author Organization [facility] Address [address] [place] [address] Care Team Providers Care Water Supervisor Name Role Phone Khanh Babcock MD Primary Care Provider [phone] Encounter Details Date Type Department Care Team (Latest Contact Info) Description 11/20/2006 Outpatient Historical [facility] [address] 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
--- OUTSIDE RECORDS SUMMARY | 2024-11-09 18:28 | XMS_ITS | Encounter Summary ---
Author Organization [facility] Address [address] [place] [address] Care Team Providers Care Supervisor Webbing Name Role Phone Khanh Babcock MD Primary Care Provider [phone] Encounter Details Date Type Department Care Team (Latest Contact Info) Description 11/23/2004 Outpatient [facility] Gastroenterology[address] [place] [phone] Perry Ayala MD [address] [facility] [address] [place] [address] PERS HX OF COLONIC MALIGNANCY (Primary Dx) Social History Tobacco Use Types Packs/Day Years Used Date Smoking Tobacco: Never Assessed Comments Unknown Sex and Gender Information Value Date Recorded Sex Assigned at Not on file Legal 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
--- OUTSIDE RECORDS SUMMARY | 2024-11-09 18:28 | XMS_ITS | Encounter Summary ---
Author Organization [facility] Address [address] [place] [address] Care Team Providers Care Donor Processor Name Role Phone Khanh Babcock MD Primary Care Provider [phone] Encounter Details Date Type Department Care Team (Latest Contact Info) Description 11/23/2004 Outpatient Historical [facility] [place] [address] [place] [address] [place] [address] Perry Ayala MD 1029 [facility] [address] [place] [address] PERS HX OF COLONIC MALIGNANCY (Primary Dx) Social History Tobacco Use Types Packs/Day Years Used Date Smoking Tobacco: Never Assessed Comments Unknown Sex and Gender Information Value Date Recorded Sex Assigned at Not on file Legal Sex Female 3:39 AM AIRPLANE CHARTER CLERK Gender Identity Not on file Sexual Orientation Not on file documented as of this encounter Plan of Treatment Not on file documented as of this encounter Visit Diagnoses Diagnosis Personal history of malignant neoplasm of large intestine- Primary documented in this encounter Care Teams Donor Processor Relationship Specialty Start Date End Date Khanh Babcock MD [address] [place] [phone] PCP - General Family Practice 01/27/10 12/13/16 documented as of this encounter
--- OUTSIDE RECORDS SUMMARY | 2024-11-09 18:28 | XMS_ITS | Encounter Summary ---
Author Organization [facility] Address [address] [place] [address] Care Team Providers Care Farm Machinery Assembler Name Role Phone Khanh Babcock MD Primary Care Provider [phone] Encounter Details Date Type Department Care Team [...] on file Legal Sex Female 3:39 AM PLANT PHYSIOLOGY TEACHER Gender Identity Not on file Sexual Orientation Not on file documented as of this encounter Plan of Treatment Not on file documented as of this encounter Visit Diagnoses Diagnosis Other follow-up examination(V67.59)- Primary Other follow-up examination documented in this encounter Care Teams Farm Machinery Assembler Relationship Specialty Start Date End Date Khanh Babcock MD [address] [place] [phone] PCP - General Family Practice 01/27/10 12/13/16 documented as of this encounter
--- OUTSIDE RECORDS SUMMARY | 2024-11-09 18:28 | XMS_ITS | Encounter Summary ---
Author Organization [facility] Address [address] [place] [address] Care Team Providers Care Physics Faculty Member Name Role Phone Khanh Babcock MD Primary Care Provider [phone] Reason for Referral * Outpatient Services (Routine) - Closed Specialty Diagnoses / Procedures Referred By Tabby nogueira Referred To Contact Diagnoses Visit for screening mammogram Procedures MAMMO DIGITAL SCREEN BILAT Khanh Babcock MD Phone: tel: fax: Referral ID Status Reason Start Date Expiration Date Visits Re quested Visits Authorized [id number] Closed 03/15/2015 04/14/2016 1 1 RDISCIPLINARY PROFESSOR Encounter Details Date Type Department Care Team (Latest Contact Info) Description 03/15/2015 Ancillary [facility] Pre-Registration [place] CALL TO MAKE APPOINTMENT ONLY [address] [place] [address] Khanh Babcock MD [address] [place] [address] Visit for screening mammogram (Primary Dx) Social History Tobacco Use Types Packs/Day Years Used Date Smoking Tobacco: Former Cigarettes 2 18 0 [birth year]/25/1965 - 03/25/1983 Alcohol Use Standard Drinks/Week Comments Yes 0.8 (1 standard drink = 0.6 oz p ure alcohol) Comments No Sex and Gender Information Value Date Recorded Sex Assigned at Not on file Legal Sex Female 3:39 AM INTERDISCIPLINARY PROFESSOR Gender Identity Not on file Sexual Orientation Not on file Occupation Industry Job Start Date Job End Date Not on file Not on file Not on file Not on file documented as of this encounter Plan of Treatment Not on file documented as of this encounter Results * MAMMO DIGITAL SCREEN BILAT (04/18/2015 2:48 PM INTERDISCIPLINARY PROFESSOR) Anatomical Region Laterality Modality Breast Bilateral Mammography Narrative 04/19/2015 10:04 AM INTERDISCIPLINARY PROFESSOR Bilateral Mammogram Reason for Exam: Screening Comparison: [...] mammogram documented in this encounter Care Teams Physics Faculty Member Relationship Specialty Start Date End Date Khanh Babcock MD [address] [place] [phone] PCP - General Family Practice 01/27/10 12/13/16 documented as of this encounter
--- OUTSIDE RECORDS SUMMARY | 2024-11-09 18:28 | XMS_ITS | Encounter Summary ---
Author Organization [facility] Address [address] [place] [address] Care Team Providers Care Patcher Helper Name Role Phone Khanh Babcock MD Primary Care Provider [phone] Reason for Referral * Outpatient Services (Routine) - Closed Specialty Diagnoses / Procedures Referred By Tabby nogueira Referred To Contact Diagnoses Other screening mammogram Procedures MAMMO DIGITAL SCREEN BILAT Khanh Babcock MD [address] [place] [address] Phone: tel: fax: Referral ID Status Reason Start Date Expiration Date Visits Re quested Visits Authorized [id number] Closed 01/16/2012 01/15/2013 1 1 Encounter Details Date Type Department Care Team (Latest Contact Info) Description 01/16/2012 Ancillary Orders [facility] Pre-Registration [place] CALL TO MAKE APPOINTMENT ONLY [address] [place] [address] Khanh Babcock MD [address] [place] [address] Other screening mammogram Social History Tobacco Use Types Packs/Day Years Used Date Smoking Tobacco: Former Cigarettes 2 18 0 03/25/1965 - 03/25/1983 Alcohol Use Standard Drinks/Week Comments Yes 0.8 (1 standard drink = 0.6 oz p ure alcohol) Comments No Sex and Gender Information Value Date Recorded Sex Assigned at Not on file Legal Sex Female 3:39 AM CHILD AND FAMILY SERVICES WORKER Gender Identity Not on file Sexual Orientation Not on file documented as of this encounter Plan of Treatment Not on file documented as of this encounter Results * MAMMO DIGITAL SCREEN BILAT (02/26/2012 8:53 AM CHILD AND FAMILY SERVICES WORKER) Anatomical Region Laterality Modality Breast Bilateral Mammography Narrative 02/27/2012 12:24 PM CHILD AND FAMILY SERVICES WORKER Bilateral Mammogram Reason for Exam: Screening Comparison: [...] mammogram documented in this encounter Care Teams Patcher Helper Relationship Specialty Start Date End Date Khanh Babcock MD [address] [place] [phone] PCP - General Family Practice 01/27/10 12/13/16 documented as of this encounter
--- OUTSIDE RECORDS SUMMARY | 2024-11-09 18:28 | XMS_ITS | Encounter Summary ---
Author Organization [facility] Address [address] [place] [address] Care Team Providers Care Accounting File Clerk Name Role Phone Khanh Babcock MD Primary Care Provider [phone] Reason for Referral * Outpatient Services (Routine) - Closed Specialty Diagnoses / Procedures Referred By Tabby nogueira Referred To Contact Diagnoses Visit for screening mammogram Procedures MAMMO SCREEN BILAT W OR WO CAD Khanh Babcock MD [address] [place] [phone] Phone: tel: fax: Referral ID Status Reason Start Date Expiration Date Visits Re quested Visits Authorized [id number] Closed 04/17/2016 05/18/2017 1 1 ING MACHINE STRIPER Encounter Details Date Type Department Care Team (Latest Contact Info) Description 04/17/2016 Ancillary Orders [facility] Pre-Registration [place] CALL TO MAKE APPOINTMENT ONLY [address] [place] [address] Khanh Babcock MD [address] [place] [address] Visit for screening mammogram Social History Tobacco Use Types Packs/Day Years Used Date Smoking Tobacco: Former Cigarettes 2 18 0 03/25/1965 - 03/25/1983 Alcohol Use Standard Drinks/Week Comments Yes 0.8 (1 standard drink = 0.6 oz p ure alcohol) Comments No Sex and Gender Information Value Date Recorded Sex Assigned at Not on file Legal Sex Female 3:39 AM WASHING MACHINE STRIPER Gender Identity Not on file Sexual Orientation Not on file Occupation Industry Job Start Date Job End Date Not on file Not on file Not on file Not on file documented as of this encounter Plan of Treatment Not on file documented as of this encounter Results * MAMMO SCREEN BILAT W OR WO CAD (04/24/2016 3:41 PM WASHING MACHINE STRIPER) Anatomical Region Laterality Modality Breast Bilateral Mammography Narrative 04/25/2016 9:30 AM WASHING MACHINE STRIPER Bilateral Mammogram Reason for Exam: Screening Comparison: [...] mammogram documented in this encounter Care Teams Accounting File Clerk Relationship Specialty Start Date End Date Khanh Babcock MD [address] [place] [phone] PCP - General Family Practice 01/27/10 12/13/16 documented as of this encounter
--- OUTSIDE RECORDS SUMMARY | 2024-11-09 18:28 | XMS_ITS | Encounter Summary ---
Author Organization [facility] Address [address] [place] [address] Care Team Providers Care Entry Manager Name Role Phone Khanh Babcock MD Primary Care Provider [phone] Encounter Details Date Type Department Care Team (Latest Contact Info) Description 07/12/2005 Outpatient Historical [facility] Verna Kiran MD NO ADDRESS ON FILE Other Abnormal Findings on Radiological Examination of Breast (Primary Dx) Social History Tobacco Use Types Packs/Day Years Used Date Smoking Tobacco: Never Assessed Comments Unknown Sex and Gender Information Value Date Recorded Sex Assigned at Not on file Legal Sex Female 3:39 AM 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
--- OUTSIDE RECORDS SUMMARY | 2024-11-09 18:28 | XMS_ITS | Encounter Summary ---
Author Organization [facility] Address [address] [place] [address] Care Team Providers Care Investigator Internal Affairs Name Role Phone Khanh Babcock MD Primary Care Provider [phone] Encounter Details Date Type Department Care Team (Latest Contact Info) Description 01/07/[address] [facility] Family Medicine [address] [place] [address] Verna Kiran MD NO ADDRESS ON FILE Unspecified Essential Hypertension (Primary Dx) Social History Tobacco Use Types Packs/Day Years Used Date Smoking Tobacco: Never Assessed Comments Unknown Sex and Gender Information Value Date Recorded Sex Assigned at Not on file Legal Sex Female 3:39 AM STEAM HEATING INSTALLER Gender Identity Not on file Sexual Orientation Not on file documented as of this encounter Plan of Treatment Not on file documented as of this encounter Visit Diagnoses Diagnosis Unspecified essential hypertension- Primary documented in this encounter Care Teams Investigator Internal Affairs Relationship Specialty Start Date End Date Khanh Babcock MD [address] [place] [phone] PCP - General Family Practice 01/27/10 12/13/16 documented as of this encounter
--- OUTSIDE RECORDS SUMMARY | 2024-11-09 18:28 | XMS_ITS | Encounter Summary ---
Author Organization [facility] Address [address] [place] [address] Care Team Providers Care Metaphysician Name Role Phone Khanh Babcock MD Primary Care Provider [phone] Encounter Details Date Type Department Care Team (Latest Contact Info) Description 07/12/2005 Outpatient [facility] [address] [phone] Karen Fletcher MD NO ADDRESS ON FILE Other Sign and Symptom in Breast (Primary Dx); Other and Unspecified Hyperlipidemia Social History Tobacco Use Types Packs/Day Years Used Date Smoking Tobacco: Never Assessed Comments Unknown Sex and Gender Information Value Date Recorded Sex Assigned at Not on file Legal Sex Female 3:39 AM SACK MAKER Gender Identity Not on file Sexual Orientation Not on file documented as of this encounter Plan of Treatment Not on file documented as of this encounter Visit Diagnoses Diagnosis Other sign and symptom in breast- Primary Other and unspecified hyperlipidemia documented in this encounter Care Teams Metaphysician Relationship Specialty Start Date End Date Khanh Babcock MD [address] [place] [phone] PCP - General Family Practice 01/27/10 12/13/16 documented as of this encounter
--- OUTSIDE RECORDS SUMMARY | 2024-11-09 18:28 | XMS_ITS | Encounter Summary ---
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 Gender Identity Not on file Sexual Orientation Not on file documented as of this encounter Plan of Treatment Not on file documented as of this encounter Procedures Procedure Name Priority Date/Time Associated Diagnosis Comments PATHOLOGY Routine 01/13/2008 2:47 PM CDT documented in this encounter Results * PATHOLOGY (01/13/2008 2:47 PM CDT) PATHOLOGY/CYT OLOGY REPORT [facility] Anatomic Pathology Dept [address] [facility] [address] Patient: KEYA SHARPE Accn No: [id number] Collected: 01/13/2008 2:47:00 PM SURGICAL PATHOLOGY FINAL [...] intestine documented in this encounter Care Teams Pricing/Signage Team Member Relationship Specialty Start Date End Date Khanh Babcock MD [address] [place] [phone] PCP - General Family Practice 01/27/10 12/13/16 documented as of this encounter
--- OUTSIDE RECORDS SUMMARY | 2024-11-09 18:28 | XMS_ITS | Encounter Summary ---
Author Organization [facility] Address [address] [place] [address] Care Team Providers Care Interactive Project Manager Name Role Phone Khanh Babcock MD Primary Care Provider [phone] Encounter Details Date Type Department Care Team (Late st Contact Info) Description 09/04/2004 Outpatient Historical [facility] Family Medicine [address] 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 Gender Identity Not on file Sexual Orientation Not on file documented as of this encounter Plan of Treatment Not on file documented as of this encounter Visit Diagnoses Diagnosis Routine gynecological examination- Primary Malignant neoplasm of colon, unspecified site (CMS/HCC) Malignant neoplasm of colon, unspecified site Unspecified essential hypertension Other and unspecified hyperlipidemia documented in this encounter Care Teams Interactive Project Manager Relationship Specialty Start Date End Date Khanh Babcock MD [address] [place] [phone] PCP - General Family Practice 01/27/10 12/13/16 documented as of this encounter
[2024-11-09 19:52] VITALS: PULSE 63; RESP 16; O2SAT 89
--- NOTE | 2024-11-09 19:56 | ECG_ITS ---
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 Measurements Intervals [place] Rate: 73 P: 23 RI: 161 QRS: -79 QRSD: 97 T: -17 QT: 308 QTc: 339 Interpretive Statements SINUS RHYTHM PATTERN CONSISTENT WITH PULMONARY DISEASE Non diagnostic T wave changes LEFT ANTERIOR FASCICULAR BLOCK [QRS AXIS <= -45, QR IN I, RS IN II] No previous ECG available for comparison Electronically Signed On 11-14-2024 09:16:04 CDT by Mirtha Sims M.D. [email or web address]
--- NOTE | 2024-11-09 20:00 | PM.HP ---
Providers/Chief Complaint Admitting Physician: Donnie Arnold MD Primary Care Provider: Griselda Garner MD Chief Complaint: empyema CSU 105 History of Present Illness As per the previous notes and the patient : Kyea Sharma is a 84 year old female referred by Dr. Garner for evaluation of a recurrent pleural effusion. Her past medical history is significant for hereditary hemochromatosis, for which she undergoes phlebotomy every three months, hypertension managed with triamterene/hydrochlorothiazide, gout managed with allopurinol, and osteopenia. Her surgical history includes an appendectomy for a ruptured appendix, colon resection, and hernia repair. She reports that she traveled to [place] from October 14 to October 25, 2024, during which she developed what she believed was a viral illness. Shortly thereafter, she went on a cruise and experienced progressive shortness of breath, cough, and wheezing. On her way home, paramedics were called due to worsening symptoms, and she was admitted to a hospital in [place] for seven days. During that admission, she was diagnosed with Haemophilus influenzae pneumonia. An attempt at thoracentesis was unsuccessful, and a chest tube was subsequently placed with intrapleural lytic therapy, remaining in place for approximately four days. She noted some improvement in breathing during her hospitalization. The patient describes herself as previously very active, engaging in activities such as climbing waterfalls, but since her illness she feels her health has plateaued. She continues to experience shortness of breath, weakness, and a nonproductive cough. She was unable to see her primary care physician until November 04, at which time Dr. Garner urgently referred her for further evaluation. A CT chest performed on November 05, 2024, demonstrated a large right lower thoracic fluid collection measuring 10 ? 13.7 ? 15.9 cm, thought to represent an exudative empyema without significant wall thickening or air foci. The collection exerts mass effect on the IVC, lung, and mediastinal structures, with compressive atelectasis of the right lower lobe. A right paratracheal lymph node measuring 1.7 cm was also noted, which may be reactive or neoplastic. She is a former smoker, having quit in 1983 after an 18-year, 1.5 [id number] history. Current medications include albuterol as needed, budesonide two puffs twice daily, triamterene/hydrochlorothiazide, and allopurinol. She does not use any respiratory devices, denies latex allergy, and is up to date on her vaccinations. Today she reports ongoing dyspnea, fatigue, and cough, with no new complaints. Of note the patient had history of colon cancer already treated and in remission status for surgical resection. And also having history of cancers in the family. Medications/Allergies Home Medications ?Medication ?Instructions ?Recorded ?Confirmed ?Last Taken ?Type calcium 600 mg (as 2 cap PO DAILY 06/25/22 11/09/24 11/09/24 08:00 History carbonate)-vitamin D3 12.5 mcg (500 unit) capsule (Calcium with Vit D3) magnesium oxide 250 mg PO DAILY 06/25/22 11/09/24 11/09/24 08:00 History zinc gluconate 30 mg tablet 30 mg PO DAILY 06/25/22 11/09/24 11/09/24 08:00 History collagen,hydrolysate 500 mg-biotin 1 cap PO DAILY 09/12/22 11/09/24 11/09/24 08:00 History 800 mcg-ascorbic acid 50 mg capsule (Collagen 1500 Plus C) ibuprofen 800 mg tablet 800 mg PO Q8H PRN pain #90 tabs 02/12/24 11/09/24 Unknown Rx albuterol sulfate 90 mcg/actuation 2 puff inhalation Q6H PRN 11/09/24 11/09/24 Unknown History aerosol inhaler Shortness Of Breath Or Wheezing allopurinol 300 mg tablet 300 mg PO DAILY 11/09/24 11/09/24 11/09/24 08:00 History amitriptyline 10 mg tablet 10 mg PO DAILY 11/09/24 11/09/24 11/09/24 08:00 History budesonide-formoterol HFA 160 2 inh inhalation BID 11/09/24 11/09/24 11/09/24 08:00 History mcg-4.5 mcg/actuation aerosol inhaler (Breyna) melatonin 5 mg capsule 5 mg PO BEDTIME PRN Insomnia 11/09/24 11/09/24 11/08/24 21:00 History triamterene 37.5 1 tab PO DAILY 11/09/24 11/09/24 11/09/24 08:00 History mg-hydrochlorothiazide 25 mg tablet Allergies Allergy/AdvReac Type Severity Reaction Status Date / Time Sulfa (Sulfonamide Allergy Intermediate ALGY-Hives Verified 11/09/24 18:12 Antibiotics) PFSH Acute PFSH: Medical History (Updated 11/09/24 @ 20:03 by Donnie Arnold MD) Insomnia Gout Hypertension Osteopenia Dyslipidemia History of colon cancer s/p resection in 1996, no chemo or radiation, last colonoscopy 2019 Hemochromatosis Surgical History (Reviewed 11/09/24 @ 14:08 by Mckenna Martinez [facility]) History of appendectomy History of bilateral breast reduction surgery History of hernia repair History of colon resection History of tonsillectomy Family History (Updated 11/09/24 @ 17:04 by Jayla Monzon LPN) Mother Cancer colon CAD (coronary artery disease) Sister Cancer breast Stroke Other Osteopenia Denies family history of Diabetes Dementia Chronic kidney disease (CKD) Social History (Reviewed 11/09/24 @ 14:08 by Mckenna Martinez [facility]) Smoking and tobacco/nicotine status: former use of tobacco/nicotine (quit in 1983. history 1 1/2 ppd X 18 years) Quit status (tobacco/nicotine): has quit using Year quit tobacco: 1982 (18 years pack hist) Alcohol intake: never Substance/Drug Use: never Household members: friend(s) Marital status: / Number of children: 5 Current occupational status: retired Special pedro needs: No Agree to transfusion: Yes Vitals/I&O/Wt Last Vital Signs Pulse 63 11/09/24 19:52 Resp 16 11/09/24 19:52 Pulse Ox 89 L 11/09/24 19:52 O2 Del Method Room Air 11/09/24 19:52 FiO2 21 11/09/24 19:52 Weight last 48 hrs Weight 61.008 kg Physical Exam Narrative: General: Alert oriented x3, patient seen HEENT: Normocephalic, atraumatic, EOMI, breathing comfortably at room air Cardio: Regular rate rhythm, normal S1-S2, no murmurs rubs gallops, JVD normal Respiratory: Normal vesicular breathing with decreased air entry on the right middle to lower zone GI: Abdomen soft, nontender, nondistended, normoactive bowel sounds present all 4 quadrants, Neuro: Cranial nerves II to XII intact, strength 5/5, sensation 5/5, no gross neurological deficit Behavior: Appropriate and cooperative Extremities: Pulses 2+, no edema, no cyanosis Skin: Visible skin intact, no rashes A&P Assessment and plan 1. Recurrent pleural effusion on right: 2. Empyema of right pleural space: 3. Gout: 4. Hypertension: 5. Hemochromatosis: 6. Sepsis: Plan: - 2 sets of blood cultures, UA and lactate - zosyn and vanc - continue on duonebs - resume home medications, allopurinol for gout, melatonin and amitriptyline for insomnia -Hold antihypertensive for the the moment since the patient will have procedure for tomorrow and consider restarting if the blood pressure is uncontrolled. - Monitor CBC for hemochromatosis - NPO and hold anticoagulation for possible chest tube insertion tomorrow for empyema and further work up - FU with the interventional pulm - VTE: SCD - diet: npo PDMP PDMP Reviewed: Not Reviewed Attestations Medical Necessity Statement*: Keya Sharma's hospital stay will require greater than 2 midnights for management of empyema Time Spent in Patient Care: 16 - 35 minutes (>than 50% of time spent in counselling and/or direct pt care on unit). Other Attestations: Patient condition has been discussed at length with the patient/family, I have independently reviewed the chart labs imaging and diagnostics and EKG. I have discussed the goals of care and code status with the patient/family/NOK/legal patient services representative, and documented accordingly. The patient/family has been informed about the current condition and further plan of care. Agreed with the plan of care and understood without any language barrier. This documentation was created by [employer] dye feeder software. Every effort was made to ensure accuracy of dye feeder. Any obvious errors or omissions should be clarified with the author of the document. Coding Level of Care Code 15119 Diagnoses Recurrent pleural effusion on right J90 Empyema of right pleural space J86.9 Gout M10.9 Hypertension I10 Hemochromatosis E83.119 Sepsis A41.9
[2024-11-09 20:01] VITALS: BP 132/78; PULSE 66; RESP 24; O2SAT 95
[2024-11-09] MEDS: heparin 5,000 unit/mL INJ 1 mL 5000 UNIT SUBCUT (20:36)
[2024-11-09 21:19] LABS: Add Urine Microscopic? NO
[2024-11-09 21:21] LABS: Glucose Urine UA Negative (Normal); Nitrate Urine Negative (Negative); Specific Gravity, Urine 1.024 (1.005-1.030)
[2024-11-09 21:29] LABS: Charge for UA Resulting for Rev
[2024-11-09 21:37] LABS: Lactic Sepsis W/Reflex 1.9 mmol/L (0.5-2.2)
[2024-11-09] MEDS: piperacillin-tazobactam 3.375 GM in sodium chloride 0.9% (plus) 50 ML IV (22:59)
[2024-11-10] VITALS (26 sets, daily range): BP systolic 103–145; BP diastolic 48–73; PULSE 0–78; RESP 16–26; TEMP 36.1–37; O2SAT 87–100
[2024-11-10] MEDS: MELATONIN 3 MG TABLET PO ×2 (00:22→20:05)
--- NOTE | 2024-11-10 03:28 | ECG_ITS ---
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 Measurements Intervals [place] Rate: 44 P: 56 DE: 164 QRS: -71 QRSD: 105 T: -52 QT: 495 QTc: 426 Interpretive Statements SINUS BRADYCARDIA WITH MARKED SINUS ARRHYTHMIA PATTERN CONSISTENT WITH PULMONARY DISEASE LEFT ANTERIOR FASCICULAR BLOCK [QRS AXIS <= -45, QR IN I, RS IN II] MODERATE T-WAVE ABNORMALITY, CONSIDER INFERIOR ISCHEMIA [-0.1+ mV T-WAVE IN II/aVF] Compared to ECG 11/09/2024 19:56:29 T-wave abnormality now present Possible ischemia now present Sinus rhythm no longer present Electronically Signed On 11-14-2024 09:48:03 CDT by Alejandro Cardenas M.D. [id number]
[2024-11-10] MEDS: piperacillin-tazobactam 3.375 GM in sodium chloride 0.9% (plus) 50 ML IV ×3 (03:51→21:52)
[2024-11-10 04:06] LABS: Hematocrit 30.4 % (36-47); Hemoglobin 9.70 g/dL (11.27-16.99); Mean Corpuscular HGB Conc 31.9 g/dL (30-55); Mean Corpuscular Hemoglobin 30.9 pg (27-33); Mean Corpuscular Volume 96.8 fl (85-98); Nucleated Red Blood Cells % 0 %; Platelet Count 580 10^3/cmm (157-399); Red Blood Count 3.14 10^6/uL (3.85-5.65); White Blood Count 6.80 10^3/uL (3.29-11.43)
[2024-11-10 04:18] LABS: INR 1.06 (0.8-1.2); Prothrombin Time 14.60 SECONDS (12.1-14.9)
[2024-11-10 04:39] LABS: Alanine Aminotransferase 17 U/L (0-33); Albumin Level 2.6 g/dL (3.5-5.2); Alkaline Phosphatase 75 U/L (35-105); Anion Gap 12.8 (5-19); Aspartate Amino Transferase 18 U/L (0-32); Blood Urea Nitrogen 19 mg/dL (8-23); Calcium 9.0 mg/dL (8.5-10.5); Carbon Dioxide 27 mmol/L (22-29); Chloride 101 mmol/L (98-107); Creatinine Clr Calc Pharmacy 43.4899; Globulin 3.8 g/dL (1.3-4.6); Glucose 101 mg/dL (65-115); Magnesium 2.0 mg/dL (1.7-2.3); Osmolality Calculated 286 mOsm/kg (285-295); Potassium 3.8 mmol/L (3.5-5.1); Sodium 137 mmol/L (136-145); Thyroid Stimulating Hormone 4.18 uIU/mL (0.27-4.20); Total Protein 6.4 g/dL (6.6-8.7)
--- NOTE | 2024-11-10 05:24 | PC.NURSE ---
Around 2100 requested dose change of melatonin as the [facility] was not dispensing medication. Received orders from Dr. Tse to give 3 mg melatonin. 0030- Notified Dr. Tse patient HR is going as low as 36 and in the 40's. Received orders to monitor. By 0300 patient HR was sustaining in the 40's EKG obtained and Dr. Tse notified. No new orders, just monitor BP.
--- NOTE | 2024-11-10 07:34 | ECG_ITS ---
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 Measurements Intervals [place] Rate: 49 P: 57 NH: 154 QRS: -71 QRSD: 104 T: -45 QT: 466 QTc: 422 Interpretive Statements SINUS BRADYCARDIA WITH OCCASIONAL SUPRAVENTRICULAR PREMATURE COMPLEXES PATTERN CONSISTENT WITH PULMONARY DISEASE LEFT ANTERIOR FASCICULAR BLOCK [QRS AXIS <= -45, QR IN I, RS IN II] Compared to ECG 11/10/2024 03:28:53 Sinus arrhythmia no longer present T-wave abnormality no longer present Possible ischemia no longer present Electronically Signed On 11-14-2024 09:47:52 CDT by Alejandro Cardenas M.D. [id number] [id number]
--- NOTE | 2024-11-10 07:52 | USCV_ITS ---
Keya Sharma Age: 84 Gender: F : 1940 Exam Date: 11/10/2024 08:31 Ordering Phys: Donine Arnold MD Technologist: Exam Location: [facility] Indication: wei BP: / HR: 53 Rhythm: Sinus Technical Quality: Adequate MEASUREMENTS (Male / Female) Normal Values 2D ECHO LV Diastolic Diameter PLAX 4.0 cm 4.2 - 5.9 / 3.9 - 5.3 cm IVS Diastolic Thickness 1.0 cm 0.6 - 1.0 / 0.6 - 0.9 cm IVS Systolic Thickness 1.7 cm LVPW Diastolic Thickness 1.0 cm 0.6 - 1.0 / 0.6 - 0.9 cm LVPW Systolic Thickness 1.4 cm LVOT Diameter 1.6 cm LV Ejection Fraction 2D Teich 60.1 % LV Ejection Fraction MOD 4C 67.5 % LV Ejection Fraction MOD 2C 66.9 % LV Ejection Fraction 2C AL 66.0 % LA Diameter 3.1 cm RA Systolic Volume 4C AL 31.8 ml RA Systolic Volume 4C MOD 30.2 ml Aorta at Sinotubular Diameter 2.3 cm M-MODE LA Ao Ratio MM 1.2 AV Cusp Separation MM 2.3 cm DOPPLER AV Peak Velocity 146.0 cm/s LVOT Peak Velocity 83.0 cm/s AV Area Cont Eq vti 1.3 cm squared AV Area Cont Eq pk 1.1 cm squared MV Peak Velocity 130.0 cm/s MV Area PHT 3.0 cm squared Mitral E to A Ratio 1.1 TV Peak Velocity 245.0 cm/s TR Peak Velocity 279.0 cm/s TR Peak Gradient 31.1 mmHg TV Peak E Velocity 86.0 cm/s PV Peak Velocity 120.0 cm/s FINDINGS Left Ventricle Left ventricle is normal in size. LV systolic function is normal with EF of 60-65%. No regional wall motion abnormalities are seen. Right Ventricle Normal right ventricular size and systolic function. Right Atrium Normal right atrial size. Left Atrium Normal left atrial size. Mitral Valve Structurally normal mitral valve. Trace mitral regurgitation Aortic Valve Structurally normal aortic valve. No significant stenosis or regurgitation. Tricuspid Valve Mild tricuspid valve regurgitation. Insufficient TR jet to calculate RVSP Pulmonic Valve Not well visualized Pericardium Normal Aorta Normal in size IVC Not well visualized CONCLUSIONS LV systolic function is normal with EF of 60-65% Trace mitral regurgitation Mild tricuspid regurgitation No comparison studies are available. Alejandro Cardenas MD (Electronically Signed) Final Date: 10 November 2024 13:02 S
--- NOTE | 2024-11-10 07:58 | USCV_ITS ---
Keya Sharma Age: 84 Gender: F : 1940 Exam Date: 11/10/2024 08:47 Ordering Phys: Donnie Arnold MD Technologist: Exam Location: [facility] Indication: edema PROCEDURES: The venous duplex Doppler examination of both lower extremities was performed in the standard fashion. The following venous structures were evaluated: common femoral vein, profunda vein, proximal portion of the greater saphenous vein, superficial femoral vein, and the popliteal vein. In addition, the posterior tibial and peroneal trunk were evaluated. FINDINGS: Normal 2-D Doppler and augmentation and compressibility throughout the lower extremity venous structures. Additional imaging through the proximal calf veins also reveals no thrombus. Limited evaluation of the greater saphenous vein is patent with no thrombus. CONCLUSIONS No evidence of right lower extremity DVT. No evidence of left lower extremity DVT. Lucas Heredia MD (Electronically Signed) Final Date: 10 November 2024 10:50 S
--- NOTE | 2024-11-10 08:00 | PC.NURSE ---
Noted patient to have heart rate dropping into the 30s. Most recent witnessed by RT Ana Maria that patient did appear to become unresponsive briefly while in conversation. Informed Dr Arnold and Dr Khan. Received orders for cardiac echo and venous duplex. Will also get troponin series. Dr Arnold into see patient this am. Will hold procedure with Dr Khan until patient is seen by cardiology.
--- NOTE | 2024-11-10 08:05 | PM.PN ---
Subjective Subjective: the patient was seen in the morning and was droping her HR to 40s with one episode of syncope, EKG did not show any acute TN or features of high degree block. the patient reported having recent one leg swelling, and clinically assessed, there is mild difference but not very significant, no pain. cardiology consulted for symptomatic wei with syncope urgent CTA and USG both LLE duplex ordered and did not show any PE patient on telemetry and continue to monitor Vitals/I&O/Wt Last Vital Signs Temp 98.0 F 11/10/24 07:46 Pulse 50 L 11/10/24 07:46 Resp 26 H 11/10/24 07:46 BP 105/55 11/10/24 07:46 Pulse Ox 94 11/10/24 07:46 O2 Del Method Nasal Cannula 11/10/24 07:30 O2 Flow Rate 2 11/10/24 07:30 FiO2 21 11/09/24 19:52 11/09/24 11/10/24 11/10/24 22:59 06:59 14:59 Intake Total 300 / 300 Output Total 100 / 100 250 / 350 Balance -100 / -100 50 / -50 Weight last 48 hrs Weight 62.199 kg Weight 61.008 kg Physical Exam Narrative: General: Alert oriented x3, patient seen on 2L NC and not in distress HEENT: Normocephalic, atraumatic, EOMI, breathing comfortably Cardio: Regular rhythm with bradycardia, normal S1-S2, no murmurs rubs gallops, JVD normal Respiratory: Good bilateral air entry however having decreased air entry and mild coarse crackles on the right middle to lower zone, no wheezes no rhonchi appreciated GI: Abdomen soft, nontender, nondistended, normoactive bowel sounds present all 4 quadrants, Neuro: Cranial nerves II to XII intact, strength 5/5, sensation 5/5, no gross neurological deficit Behavior: Appropriate and cooperative Extremities: mild trace edema, no calf tenderness, likely left leg bigger than the other? Skin: Visible skin intact, no rashes Data 11/10/24 03:33 11/10/24 03:33 Micro: Microbiology 11/09/24 20:51 Blood Culture - Preliminary Blood SPECIMEN COLLECTED 11/09/24 20:49 Blood Culture - Preliminary Blood SPECIMEN COLLECTED A&P Assessment and plan 1. Sepsis: 2. Recurrent pleural effusion on right: 3. Insomnia: 4. Gout: 5. Hypertension: 6. Hemochromatosis: 7. Syncope and collapse: 8. Sinus bradycardia: 9. Anemia: Plan: - zosyn and vanc to continue as per pharmacy review - continue on duonebs - patient cleared by the cardio for procedure today, however to have dopamine started during procedure considering the pt will have propofol right sided empyema drainage - cardio onboard and later for possible stress treadmill test for chronotropy monitoring. - resume home medications, allopurinol for gout, melatonin and amitriptyline for insomnia -Hold antihypertensive for the the moment since the patient will have procedure for tomorrow and consider restarting if the blood pressure is uncontrolled. - Monitor CBC for hemochromatosis - hold anticoagulation for the procedure and later to start on pharmacological VTE - monitor cbc, possible dilutional anemia, no obvious blood source loss - FU with the interventional pulm - VTE: SCD - diet: npo PDMP PDMP Reviewed: Not Reviewed Attestations Medical Necessity Statement*: Keya Sharma's hospital stay will require greater than 2 midnights for management of empyema and sepsis, sinus wei and syncope Time Spent in Patient Care: Greater than 35 minutes (>than 50% of time spent in counselling and/or direct pt care on unit). Other Attestations: Patient condition has been discussed at length with the patient/family, I have independently reviewed the chart labs imaging and diagnostics and EKG. I have discussed the goals of care and code status with the patient/family/NOK/legal jewelry sales representative, and documented accordingly. The patient/family has been informed about the current condition and further plan of care. Agreed with the plan of care and understood without any language barrier. This documentation was created by [employer] salesperson china and glassware software. Every effort was made to ensure accuracy of salesperson china and glassware. Any obvious errors or omissions should be clarified with the author of the document. Coding Level of Care Code 17529 Diagnoses Sepsis A41.9 Recurrent pleural effusion on right J90 Insomnia G47.00 Gout M10.9 Hypertension I10 Hemochromatosis E83.119 Syncope and collapse R55 Sinus bradycardia R00.1 Anemia D64.9
--- NOTE | 2024-11-10 08:06 | CT_ITS ---
WS: [id number] CTA scan of the chest with IV contrast. Additional two-dimensional coronal and sagittal reconstruction and MIP images was performed. 11/10/2024 Clinical Data: to rule out PE as a cause of her syncope Comparison: CT chest, 11/05/2024 DLP: 261.[address] scans at [facility] use at least one of these dose optimization techniques: automated exposure control; mA and/or kV adjustment per patient size (includes targeted exams where dose is matched to clinical indication); or iterative reconstruction. Findings: The central pulmonary arteries and peripheral pulmonary arteries fill normally with no evidence of intraluminal filling defects. No pulmonary embolic disease is noted. There is a right pleural effusion unchanged. There is a low-density mass which may represent a loculated effusion or empyema unchanged. This low density mass does impress on the IVC, right lung and mediastinum. The right lower lobe atelectasis remains the same. The heart size is normal with no pericardial effusion. The pulmonary arterial system and thoracic aorta demonstrate no abnormalities or dilatations. There is no axillary adenopathy, and the pretracheal lymph node still measures 1.7 cm. The thyroid gland shows normal enhancement. The trachea bifurcates into the bronchi. The upper abdomen shows no abnormalities. There are 2 cysts in the liver unchanged in size. The spleen, adrenal glands, superior pole of the left kidney and pancreas show no change. 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 CT/CT angio chest PE protcl [id number] Impression: 1. Negative for pulmonary embolic disease. 2. No change in probable loculated effusion or empyema in the right lower thora x. 3. No change in right pleural effusion.
[2024-11-10 08:25] LABS: Troponin(5th) Baseline 20 ng/L (0-10)
--- NOTE | 2024-11-10 09:38 | P.CONIM_ITS ---
<Statement entered by Alejandro Cardenas M.D - 11/12/24 11:19> Patient was cared for in conjunction with an advanced practice practitioner.? I reviewed the chart and all pertinent data including imaging, telemetry, and laboratory results.? I discussed the patient in detail with the advanced practice practitioner.? Please see?their note for consult note, testing results and agreed upon plan of care for the patient. Providers/Reason For Consult 2 Consulting Physician/Specialty*: Dr. Cardenas, interventional cardiology Reason for Consult*: Bradycardia Requesting Physician: Donnie Arnold MD Attending Physician: Donnie Arnold MD Primary Care Provider: Griselda Garner MD History of Present Illness History of Present Illness Keya Sharma is a 84 year old female with past medical history of hemochromatosis, hypertension who was admitted to the hospital yesterday evening due to planned thoracoscopy, chest tube placement due to recurrent right pleural effusion. Prior to this she was traveling on a trip to [place] at the end of September beginning of October followed by a cruise. She became ill with what was suspected to be a viral illness with symptoms of cough, shortness of breath, wheezing. She was admitted to a facility in [facility], where she had a chest tube placed for several days. She followed up with her PCP Dr. Garner who referred her to Dr. Robertson, interventional vegetable preparer for further evaluation. During the night last night she became bradycardic, lowest documented heart rate 32 bpm. Currently she is in sinus rhythm, heart rate ranging between 40 and 60 bpm. Noted on telemetry monitoring some beats are junctional. She is currently asymptomatic. There were reports by nursing staff that patient lost consciousness in the middle of conversation for 1 to 2 seconds while getting a breathing treatment earlier this morning, heart rate at that time was in the 30s. Patient does not recall losing consciousness. She reports a history of syncope about 20 years ago, during a time of dehydration in the heat. She does not have any prior cardiac history and has never seen mental health unit lead psychologist. She has not taken any antiarrhythmic, calcium channel tammy or beta-tammy. She has utilized triamterene hydrochlorothiazide for antihypertensive. Blood pressure ranging 105-113/50-60 this morning. Troponin series is pending. Review of Systems 2 Const: Denies: fever(s), chills, change in weight, fatigue or diaphoresis Eyes: Denies: change in vision ENMT: Denies: epistaxis Card: Denies: chest pain, palpitations, irregular heart rhythm, edema, syncope, pre-syncope, dyspnea on exertion, orthopnea or leg pain with exertion Resp: Denies: dyspnea, productive cough or wheezing GI: Denies: nausea, vomiting, hematemesis, hematochezia or melena : Denies: hematuria Musc: Denies: extremity swelling Jermaine/Lymph: Denies: easy bruising or easy bleeding Medications/Allergies Home Medications ?Medication ?Instructions ?Recorded ?Confirmed ?Last Taken ?Type calcium 600 mg (as 2 cap PO DAILY 06/25/2210/2311/09/24 08:00 History carbonate)-vitamin D3 12.5 mcg (500 unit) capsule (Calcium with Vit D3) magnesium oxide 250 mg PO DAILY 06/25/2211/09/24 08:00 History zinc gluconate 30 mg tablet 30 mg PO DAILY 06/25/2211/09/24 08:00 History collagen,hydrolysate 500 mg-biotin 1 cap PO DAILY 08/2411/09/24 11/09/24 08:00 History 800 mcg-ascorbic acid 50 mg capsule (Collagen 1500 Plus C) ibuprofen 800 mg tablet 800 mg PO Q8H PRN pain #90 t abs 02/12/24 11/09/24 Unknown Rx albuterol sulfate 90 mcg/actuation 2 puff inhalation Q 6H PRN 11/09/24 11/09/24 Unknown History aerosol inhaler Shortness Of Breath Or Wheez ing allopurinol 300 mg tablet 300 mg PO DAILY 11/09/2411/09/24 08:00 History amitriptyline 10 mg tablet 10 mg PO DAILY 11/09/2411/09/24 08:00 History budesonide-formoterol HFA 160 2 inh inhalation BID 11/09/24 11/09/24 08:00 History mcg-4.5 mcg/actuation aerosol inhaler (Breyna) melatonin 5 mg capsule 5 mg PO BEDTIME PRN Insomnia 11/09/24 11/09/24 11/08/24 21:00 History triamterene 37.5 1 tab PO DAILY 11/09/2410/2311/09/24 08:00 History mg-hydrochlorothiazide 25 mg tablet Allergies Allergy/AdvReac Type Severity Reaction Status Date / Time Sulfa (Sulfonamide Allergy Intermediate ALGY-Hives Verified 11/09/24 18:12 Antibiotics) Current Medications Generic Name Dose Route Start Last Admin Trade Name Freq PRN Reason Stop Dose Admin Acetaminophen 650 mg 11/09/24 19:21 11/09/24 22:59 Acetaminophen 325 Mg Tablet PO 650 mg Q6H PRN Administration Mild/Mod Pain Or Temp >/= 101 Albuterol/Ipratropium 3 ml 11/09/24 20:00 11/10/24 07:26 Ipratropium-Albuterol 3 Ml Neb INHALATION 3 ml Q6H.RESP AMRGUERITE Administration Allopurinol 300 mg 11/10/24 09:00 11/10/24 08:25 Allopurinol 300 Mg Tablet PO 300 mg DAILY MARGUERITE Administration Amitriptyline HCl 10 mg 11/09/24 21:00 11/09/24 20:35 Amitriptyline 25 Mg Tablet PO 10 mg BEDTIME MARGUERITE Administration Famotidine 20 mg 11/09/24 19:30 11/10/24 06:52 Famotidine 20 Mg/2 Ml Inj IVP 20 mg Q12H MARGUERITE Administration Heparin Sodium (Porcine) 5,000 unit 11/09/24 19:30 11/09/24 20:36 Heparin 5,000 Unit/Ml Inj 1 Ml SUBCUT 5,000 unit On Hold: 11/09/24 22:00 Q12H MARGUERITE Administration Sodium Chloride 1,000 mls @ 75 mls/hr 11/09/24 19:30 11/10/24 08:27 Sodium Chloride 0.9% IV Not Given .[id number] MARGUERITE Piperacillin Sod/Tazobactam 50 mls @ 12.5 mls/hr 11/09/24 19:30 11/10/24 08:18 Sod 3.375 gm/ Sodium Chloride IV Infused Q8H MARGUERITE Infusion Protocol Melatonin 3 mg 11/10/24 00:00 11/10/24 00:22 Melatonin 3 Mg Tablet PO 3 mg BEDTIME MARGUERITE Administration PFSH Acute 2 PFSH: Medical History (Updated 11/10/24 @ 12:57 by Donnie Arnold MD) Insomnia Gout Hypertension Osteopenia Dyslipidemia History of colon cancer s/p resection in 1996, no chemo or radiation, last colonoscopy 2019 Hemochromatosis Surgical History History of appendectomy History of bilateral breast reduction surgery History of hernia repair History of colon resection History of tonsillectomy Family History (Updated 11/09/24 @ 17:04 by Jayla Monzon LPN) Mother Cancer colon CAD (coronary artery disease) Sister Cancer breast Stroke Other Osteopenia Denies family history of Diabetes Dementia Chronic kidney disease (CKD) Social History Smoking and tobacco/nicotine status: former use of tobacco/nicotine (quit in 1983. history 1 1/2 ppd X 18 years) Quit status (tobacco/nicotine): has quit using Year quit tobacco: 1982 (18 years pack hist) Alcohol intake: never Substance/Drug Use: never Household members: friend(s) Marital status: / Number of children: 5 Current occupational status: retired Special pedro needs: No Agree to transfusion: Yes Vitals/I&O/Wt Last Vital Signs Temp 98.0 F 11/10/24 07:46 Pulse 51 L 11/10/24 08:18 Resp 26 H 11/10/24 07:46 BP 105/53 11/10/24 08:18 Pulse Ox 94 11/10/24 07:46 O2 Del Method Nasal Cannula 11/10/24 07:30 O2 Flow Rate 2 11/10/24 07:30 FiO2 21 11/09/24 19:52 11/09/24 11/10/24 11/10/24 22:59 06:59 14:59 Intake Total 300 / 300 250 / 250 Output Total 100 / 350 250 / 350 Balance -100 / -50 50 / -50 250 / 250 Weight last 48 hrs Weight 137 lb 2 oz Weight 134 lb 8 oz Physical Exam 2 Const: COMMON NORMALS: no acute distress and patient oriented x3 GENERAL APPEARANCE: cooperative and comfortable ORIENTATION/CONSCIOUSNESS: Yes awake, Yes oriented to person, Yes oriented to place and Yes oriented to time Chest: COMMONS NORMALS: normal inspection of the chest and normal palpation of entire chest wall CHEST: Yes Symmetrical chest wall rise Resp: COMMON NORMALS: normal respiratory effort, No retractions, No use of accessory muscles and clear to auscultation bilaterally EFFORT & INSPECTION: Yes symmetric chest movement AUSCULTATION: clear to auscultation bilaterally Cardio: COMMON NORMALS: regular rhythm, S1 normal heart sound present, S2 normal heart sound present, No gallops present (Cardio), No clicks present (Cardio), No murmurs present (Cardio) and No rub (Cardio) RATE: bradycardic RHYTHM: regular rhythm HEART SOUNDS: S1 normal heart sound present and S2 normal heart sound present PERIPHERAL PULSES: radial pulses present Extremity: COMMON NORMALS: no pedal edema Neuro: COMMON NORMALS: patient oriented x3 and moves all extremities S ENSORIUM/ORIENTATION: Yes oriented to person, Yes oriented to place and Yes oriented to time Data 11/10/24 03:33 11/10/24 03:33 Micro: Microbiology 11/09/24 20:51 Blood Culture - Preliminary Blood SPECIMEN COLLECTED 11/09/24 20:49 Blood Culture - Preliminary Blood SPECIMEN COLLECTED A&P Assessment and plan 1. Sinus bradycardia: 2. Hypertension: 3. Hemochromatosis: 4. Empyema of right pleural space: Plan: Although she is bradycardic she is not symptomatic and is compensating well. May proceed with thoracoscopy with acceptable risk for anesthesia. If needed for bradycardia and hypotension, may utilize dopamine during the procedure for hemodynamic stability. After her procedure today we will evaluate bradycardia further. PDMP PDMP Reviewed: Not Reviewed Coding Level of Care Code Acute Code for Chg Fwd Diagnoses Sinus bradycardia R00.1 Hypertension I10 Hemochromatosis E83.119 Empyema of right pleural space J86.9
--- NOTE | 2024-11-10 09:40 | ECG_ITS ---
[facility] Date: 2024-[facility]10 Pat Name: Keya Sharma Department: Room: 105 Gender: Female Pathology Technician: : 1940 Requested By: Donnie Arnold Order Number: [id number] Fatuma MD: Alejandro Cardenas M.D. Measurements Intervals Bison Rate: 47 P: 20 NC: 167 QRS: -69 QRSD: 98 T: -41 QT: 370 QTc: 329 Interpretive Statements SINUS BRADYCARDIA WITH MARKED SINUS ARRHYTHMIA PATTERN CONSISTENT WITH PULMONARY DISEASE LEFT ANTERIOR FASCICULAR BLOCK [QRS AXIS <= -45, QR IN I, RS IN II] Compared to ECG 11/10/2024 07:41:24 No significant changes Electronically Signed On 11-14-2024 09:47:39 CDT by Alejandro Cardenas M.D. [email or web address]
[2024-11-10] MEDS: iohexol 350 mg/mL 500 mL Btl (per mL) IV (09:41)
--- NOTE | 2024-11-10 09:50 | PC.CHAP ---
Pastoral Care Encounter/Spiritual Assessment Type of Contact [] Declined apparel patternmaker visit [] Patient/Family/Request visit [] Outpatient visit [] Follow-up visit [] Physician referral [] Code/Alert [x] Routine visit [] Staff referral [] Actively dying [] Patient sleeping [] Family support [] [] Out of room [] Palliative care [] [] Receiving care in room [] Pre-surgical visit [] Trauma [] Long length of stay [] ICU visit [] Other: Relational/Emotional Strength [x] Patient feels connected with others/family/visitors/staff [] Distress [] Loneliness/isolation [] Abandonment Spirituality of Patient [x] Person of Cierra [] Attends Yazidism of their Cierra [x] Believes in Prayer [] Reads Bible or Holiness materials [] There are Spiritual issues to be addressed Plant Associate Interventions [x] Prayer [x] Active listening [] Non-anxious presence [x] Spiritual/emotional support [] Crisis/trauma care [] Spiritual counseling [] Bereavement support [] Provided bereavement packet [] Provided Bible/devotional materials [] Provided toy/stuffed animal, coloring book to patient or family member [] Provided Communion [] Anointing/[place] [] Salvation [x] Completed spiritual assessment [] Other: Impact on Illness or Injury [] Angry [] Fearful [] Anxious [] Often cries [] Exhaustion [] Unable to work [] Unable to attend congregation [] Unable to walk/stand [] Unable to read [] Unable to drive [] Unable to eat/drink [] Unable to sleep [] Unable to be with family [] Patient intubated [] Other: Summary Time spent with patient 5 min Pastoral Care Encounter/Spiritual Assessment Type of Contact [] Declined apparel patternmaker visit [] Patient/Family/Request visit [] Outpatient visit [] Follow-up visit [] Physician referral [] Code/Alert [] Routine visit [] Staff referral [] Actively dying [] Patient sleeping [] Family support [] [] Out of room [] Palliative care [] [] Receiving care in room [] Pre-surgical visit [] Trauma [] Long length of stay [] ICU visit [] Other: Relational/Emotional Strength [] Patient feels connected with others/family/visitors/staff [] Distress [] Loneliness/isolation [] Abandonment Spirituality of Patient [] Person of Cierra [] Attends Yazidism of their Cierra [] Believes in Prayer [] Reads Bible or Holiness materials [] There are Spiritual issues to be addressed Plant Associate Interventions [] Prayer [] Active listening [] Non-anxious presence [] Spiritual/emotional support [] Crisis/trauma care [] Spiritual counseling [] Bereavement support [] Provided bereavement packet [] Provided Bible/devotional materials [] Provided toy/stuffed animal, coloring book to patient or family member [] Provided Communion [] Anointing/[place] [] Salvation [] Completed spiritual assessment [] Other: Impact on Illness or Injury [] Angry [] Fearful [] Anxious [] Often cries [] Exhaustion [] Unable to work [] Unable to attend congregation [] Unable to walk/stand [] Unable to read [] Unable to drive [] Unable to eat/drink [] Unable to sleep [] Unable to be with family [] Patient intubated [] Other: Summary Time spent with patient
[2024-11-10 10:55] LABS: Troponin 5 2HR 18.87 ng/L (0-10)
[2024-11-10 10:57] LABS: Troponin 5 2HR Delta -1.13 ABS# (0-10)
--- NOTE | 2024-11-10 11:47 | PC.NURSE ---
Patient taken to OR at this time.
[2024-11-10] MEDS: lidocaine-epi 1% 20 mL INJ 10 ML INJECTION (16:08)
--- NOTE | 2024-11-10 17:10 | XRR_ITS ---
PROCEDURE INFORMATION: Exam: XR Chest Exam date and time: 11/10/2024 5:27 PM Age: 84 years old Clinical indication: Other: Post bronch; Prior surgery; Surgery date: Post-operative (0-2 days); Additional info: Post thoracoscopy. Chest tube placement. , In pacu TECHNIQUE: Imaging protocol: Radiologic exam of the chest. Views: 1 view. COMPARISON: CT angio chest PE protcl [id number] 11/10/2024 9:23 AM FINDINGS: Tubes, catheters and devices: Several leads overlie the chest. A chest tube overlies the right lower hemithorax, entering posterolaterally and flexing near the right hilum with the tip directed towards the right cardiophrenic angle. Lungs: Moderate ill-defined parenchymal opacity involves the right lower lung zone. A small amount of left lower lung atelectasis is unchanged. Pleural spaces: Loculated pneumothorax is noted at the right lung base. A small amount of right pleural fluid is present. Heart/Mediastinum: Unremarkable. No cardiomegaly. Bones/joints: The osseous structures are unremarkable. Soft tissues: Mild gas is present in the deep soft tissues of the lateral right chest wall. XR/XR chest 1V portable [id number] IMPRESSION: 1. Chest tube in place in the right lower hemithorax. 2. Mild, loculated pneumothorax underlying the right lung base. 3. Small amount of residual right pleural fluid. 4. Right lower lung parenchymal opacity representing residual consolidation/infiltrate.
--- NOTE | 2024-11-10 17:12 | P.BOP_ITS ---
Interventional Pulmonary Immediate Brief Operative Note: * Date of Procedure:?November 10, 2024 * Preoperative Diagnosis:?Right pleural effusion with possible exudative empyema * Postoperative Diagnosis:? * Procedures Performed: * Medical pleuroscopy/pleuroscopy with pleural biopsy and adhesiolysis * Right chest tube placement * Surgeon / Heel Varnisher:?Ermias Robertson MD * Anesthesia: * ?Monitored anesthesia care (MAC) * Findings: Extensive adhesions with fibrinous layer covering the parietal pleura. There was about 400 cc of clear yellow fluid that was drained. Right 20 Cymro posterior inferior chest tube was placed. * Estimated Blood Loss (EBL):?[Minimal] * Specimens: * Pleural biopsy for tissue culture and surge path * Pleural fluid analysis * Cell count with differential on pleural fluid * Pleural fluid microbiology * Complications:?None * Disposition:?Transferred to PACU in stable condition. Ermias Robertson MD, FACP Interventional Pulmonogist
--- NOTE | 2024-11-10 17:12 | W.PM.BPON ---
Interventional Pulmonary Immediate Brief Operative Note: Date of Procedure:?November 10, 2024 Preoperative Diagnosis:?Right pleural effusion with possible exudative empyema Postoperative Diagnosis:? Procedures Performed: Medical pleuroscopy/pleuroscopy with pleural biopsy and adhesiolysis Right chest tube placement Surgeon / Reclamation Kettle Tender:?Ermias Robertson MD Anesthesia: ?Monitored anesthesia care (MAC) Findings: Extensive adhesions with fibrinous layer covering the parietal pleura. There was about 400 cc of clear yellow fluid that was drained. Right 20 Vietnamese posterior inferior chest tube was placed. Estimated Blood Loss (EBL):?[Minimal] Specimens: Pleural biopsy for tissue culture and surge path Pleural fluid analysis Cell count with differential on pleural fluid Pleural fluid microbiology Complications:?None Disposition:?Transferred to PACU in stable condition. Ermias Robertson MD, FACP Interventional Pulmonogist
--- NOTE | 2024-11-10 17:21 | PC.NURSE ---
Patient remains in surgery at this time.
--- NOTE | 2024-11-10 17:40 | ANE.PACU2 ---
Inpatient post-anesthesia follow up: Airway intact: Yes Vital signs: Temperature 98.1 F Pulse Rate [Orthos tatic 65 Standing Right] Pulse Rate [Orthos tatic 53 Sitting Right] Pulse Rate [Orthos tatic Lying 51 Right] Pulse Rate 72 Respiratory Rate 15 Blood Pressure [Or thostatic 120/65 Standing Right Arm ] Blood Pressure [Or thostatic 106/48 Sitting Right Arm] Blood Pressure [Or thostatic 105/53 Lying Right Arm] Blood Pressure 105/55 Pulse Oximetry 95 Oxygen Delivery Me thod Nasal Cannula Oxygen Flow Rate 3 Fraction of Inspir ed Oxygen 21 Hydration adequate: Yes Nausea and vomiting: No Pain level: 1 Mental status: Baseline
--- NOTE | 2024-11-10 17:50 | PC.NURSE ---
1749 - accepted into room 105 with CELSO Lala at side - this nurse placed chest tube to suction at 120 continuous wall suction - 20sx - no air leak noted - remains on 4LNC - in no distress upon this nurse exiting care
--- NOTE | 2024-11-10 18:03 | PC.NURSE ---
patient received from PACU s/p chest tube placement set up for suction at -20. Patient tolerating fair at this time. Noted small amount of bright red drainage. Site is clean, dry, and intact. No s/s of site bleeding or hematoma formation observed. Instructed patient on site expectations. Patient verbalized complete understanding.
[2024-11-10 18:53] LABS: Cyto Order Verification No Order
[2024-11-10 18:54] LABS: Appearance, Pleural Fluid TURBID (CLEAR); Color, Pleural Fluid Amber (Pale Yellow); Fluid Laterality RIGHT PLEURAL FLUID; PATH Referal YES; PATH Referral YES
[2024-11-10 18:57] LABS: Mononuclear %, Pleural Fluid 32 %; Mononuclear, Pleural Fluid # 0.239 10^3/uL; Polynuclear Cells, Pleural # 0.515 10^3/uL; Polynuclear Cells, Pleural % 68 %; WBC Pleural Fluid 754.000 /uL (0-1000)
[2024-11-10 18:58] LABS: Bacillus cereus group Not Detected (NOT DETECT); Bacillus subtillis group Not Detected (NOT DETECT); Corynebacterium Not Detected (NOT DETECT); Cutibacterium acnes (P.acnes) Not Detected (NOT DETECT); Enterococcus faecalis Not Detected (NOT DETECT); Enterococcus faecium Not Detected (NOT DETECT); Listeria Not Detected (NOT DETECT); Micrococcus Not Detected (NOT DETECT); Pan Candida Not Detected (NOT DETECT); Pan Gram-Negative Not Detected (NOT DETECT); Staphylococcus epidermidis Detected (NOT DETECT); Staphylococcus lugdunensis Not Detected (NOT DETECT); Staphylococcus species Detected (NOT DETECT); Streptococcus anginosus group Not Detected (NOT DETECT); Streptococcus pyogenes Not Detected (NOT DETECT); Streptococcus species Not Detected (NOT DETECT); mecA Not Detected (NOT DETECT); mecC Not Detected (NOT DETECT)
[2024-11-10] MEDS: HYDROmorphone tab 2 MG TABLET PO (19:58)
[2024-11-10 20:12] LABS: Right Pleural Fluid Right Lung
[2024-11-10 20:39] LABS: Pleural Fluid Cholesterol 145 mg/dL; Pleural Fluid Triglycerides 81 mg/dL
--- NOTE | 2024-11-10 21:36 | P.OP_ITS ---
Operative Report Date of procedure: November 10, 2024 Pre-op diagnosis: Recurrent right pleural effusion/exudative empyema Post-op diagnosis: Organized empyema Procedure done: Medical thoracoscopy Surgeon: Ermias Robertson MD Estimated blood loss: Minimal Complications: None Findings: Anesthesia Type: Monitored Anesthesia Care PREOPERATIVE INDICATION: Mrs. Sharma presents for management of symptomatic right pleural effusion. The patient has been counseled on treatment options and recommendations. I recommended the patient for VATS by thoracic surgery but I also offered her we could start with medical thoracoscopy since she does not have to travel far for it and patient agreed to proceed with right medical thoracoscopy with biopsy and chest tube placement . Consent: The benefits, risks, and alternatives to the procedure were discussed and informed consent was obtained from patient . PROCEDURE NARRATIVE: The patient was identified and the surgical site was confirmed. The patient was then positioned with left lung down, lateral decubitus. Right chest ultrasound was then performed, identifying moderate simple effusion a on the right side with no significant trabeculation organization but there was evidence of pleural thickening. Marker was used to shana an appropriate entry site at the posterior axillary line at about the 7th intercostal space. The patient was prepped and draped in usual sterile fashion. Patient was already on broad-spectrum antibiotic The selected single port incision site on the right chest wall, subcutaneous tissues and pleural interface were anesthestized with 20 mL of 1% lidocaine. A #11 blade was then used to make an approximately 1.0 to 1.5 cm incision. The intercostal muscles and fascia were then bluntly dissected using a curved christian clamp until the pleural space was entered. A 5.5 mm trocar was inserted and the Rose Marie thoracoscope was introduced. A total of 500 ml of dark yellow-colored fluid was drained. A complete video thoracoscopic inspection then was performed and revealed extensive adhesions, loculation, fibrinous organized debris is and pleural fluid, pleura was involved with fibrous tissue there was no obvious tu mor visualized. Lysis of adhesions was performed. Multiple pleural biopsies were then performed using cupped forceps in multiple areas with care to avoid the intercostal space. Attention was then turned to placing a 20F straight chest tube catheter. The drain line set was then connected and the tube was connected a pleuravac. The port incision site was closed with interrupted 2-0 vicryl sutures and the skin was closed with a 4-0 Biosyn subcuticlar stitch and skin glue was applied. The tube was then secured with 2-0 prolene. Estimated Blood Loss: Minimal Specimens: Pleural fluid for chemistry analysis, microbiology and cytology. Pleural biopsy/path Wound Classification:Clean Complications: none Disposition: PACU CPT codes for the procedure: 01522, 56691, 74009 Ermias Robertson MD, FACP, FASN Interventional Pulmonary
[2024-11-11] VITALS (26 sets, daily range): BP systolic 97–127; BP diastolic 43–65; PULSE 47–72; RESP 15–28; TEMP 36.2–37.3; O2SAT 92–97; BMI 25.0
[2024-11-11] MEDS: HYDROmorphone tab 2 MG TABLET PO ×4 (02:38→19:23)
--- NOTE | 2024-11-11 06:00 | CT_ITS ---
WS: [id number] CT chest wo con [id number] HISTORY: Follow up post Chest tube improvement TECHNIQUE: Axial imaging performed through the thorax. Coronal and sagittal reformats are submitted. All CT scans at [facility] use at least one of these dose optimization techniques: automated exposure control; mA and/or kV adjustment per patient size (includes targeted exams where dose is matched to clinical indication); or iterative reconstruction. CONTRAST: None DLP: 245.79 mGy.cm COMPARISON: 11/10/2024, 11/05/2024 Lungs and central airway: Status post thoracoscopy and chest tube placement since 11/10/2024. Previously described large loculated pleural effusion in the RIGHT lower thorax has been evacuated. There is a tiny amount of fluid LEFT now. There is atelectasis and pleural thickening in the RIGHT lower lobe. There is thickening along the major and minor fissures. There is a small subpulmonic pleural effusion at the RIGHT lung base. Chest tube is been placed with the tip terminating in the RIGHT lower thorax. Pneumothorax estimated about 10%. Otherwise chronic emphysema. Linear areas of atelectasis LEFT upper and lower lobes. There is a very small layering LEFT pleural effusion. Pleura: See above. Heart and pericardium: Mild cardiomegaly. Less mass effect upon the RIGHT heart. Mediastinum and abhi: RIGHT inferior paratracheal lymph node 1.4 cm. There are mildly prominent lymph nodes which may be reactive. Vessels: Mild atherosclerosis aorta. No aneurysm. Normal size pulmonary artery. Chest wall and lower neck: Subcutaneous emphysema along the RIGHT lateral chest wall. Upper abdomen: Hepatic cysts. No adrenal mass. Diverticula noted in the splenic flexure. Osseous structures: Advanced degenerative thoracic spondylosis in the mid spine. CT/CT chest wo con [id number] IMPRESSION: 1. Status post RIGHT thoracostomy with chest tube insertion site since 11/11/19 25. 2. Decreased size of the previously described pleural effusion/possible empyem a in the RIGHT lower thorax. 3. Small subpulmonic pneumothorax estimated at 10%. 4. Right-sided chest tube with tip terminating in the RIGHT lower thorax. 5. Compressive atelectasis and areas of consolidation in the RIGHT lower lobe along with a very small residual effusion. Recommend continued follow-up to ens ure resolution and exclude underlying neoplasm. 6. Very tiny LEFT pleural effusion is new. 7. Subcutaneous emphysema along the RIGHT lateral chest wall.
[2024-11-11] MEDS: piperacillin-tazobactam 3.375 GM in sodium chloride 0.9% (plus) 50 ML IV ×3 (06:26→22:54)
[2024-11-11 07:53] LABS: Hematocrit 34.0 % (36-47); Hemoglobin 10.70 g/dL (11.27-16.99); Mean Corpuscular HGB Conc 31.5 g/dL (30-55); Mean Corpuscular Hemoglobin 30.7 pg (27-33); Mean Corpuscular Volume 97.4 fl (85-98); Nucleated Red Blood Cells % 0 %; Platelet Count 562 10^3/cmm (157-399); Red Blood Count 3.49 10^6/uL (3.85-5.65); White Blood Count 7.21 10^3/uL (3.29-11.43)
--- NOTE | 2024-11-11 08:08 | PHA.VACGOAL ---
Vancomycin Goal - Goal Vancomycin Goal:: 15-20 mg/L Vancomycin Indication:: Other (SEPSIS) - Therapy Current therapy:: Pip/Tazo Day of therpy:: Day [1]of [] . Actual body weight (kg): 58.23 kg - Data Labs: WBC 7.21 10^3/uL (3.29-11.43) 11/11/24 07:45 RBC 3.49 10^6/uL (3.85-5.65) L 11/11/24 07:45 Hgb 10.70 g/dL (11.27-16.99) L 11/11/24 07:45 Hct 34.0 % (36-47) L 11/11/24 07:45 MCV 97.4 fl (85-98) 11/11/24 07:45 MCH 30.7 pg (27-33) 11/11/24 07:45 MCHC 31.5 g/dL (30-55) 11/11/24 07:45 RDW 14.9 % (12.1-15.1) 11/11/24 07:45 Sodium 137 mmol/L (136-145) 11/10/24 03:33 Potassium 3.8 mmol/L (3.5-5.1) 11/10/24 03:33 Chloride 101 mmol/L (98-107) 11/10/24 03:33 Carbon Dioxide 27 mmol/L (22-29) 11/10/24 03:33 Anion Gap 12.8 (5-19) 11/10/24 03:33 BUN 19 mg/dL (8-23) 11/10/24 03:33 Creatinine 0.8 mg/dL (0.5-0.9) 11/10/24 03:33 GFR Calculation Not Reportable 11/10/24 03:33 Treatment plan:: new consult Regimen:: New start vancomycin for sepsis. 1 of 4 blood cultures bottles growing Staphylococcus epidermidis. Received load dose of 1000 mg. Starting on maintenance dose of 1000 mg q24h. Microbiology 11/09/24 20:49 Blood Blood Culture - Preliminary Staphylococcus epidermidis
[2024-11-11 08:13] LABS: Anion Gap 13.5 (5-19); Blood Urea Nitrogen 13 mg/dL (8-23); Calcium 8.7 mg/dL (8.5-10.5); Carbon Dioxide 27 mmol/L (22-29); Chloride 102 mmol/L (98-107); Creatinine Clr Calc Pharmacy 42.5553; Glucose 97 mg/dL (65-115); Osmolality Calculated 286 mOsm/kg (285-295); Potassium 4.5 mmol/L (3.5-5.1); Sodium 138 mmol/L (136-145)
--- NOTE | 2024-11-11 08:26 | P.PN_ITS ---
Subjective 2 Subjective: the patient was seen in the morning, s/p chest tube insertion in the right hemithorax, oscillating column patient on 2 litres NC and saturating above 95%, currently stable and not in resp distress spoke to the pulm and would like to keep her for further intrapleural lytic therapy Continue to monitor for the meantime Vitals/I&O/Wt Last Vital Signs Temp 98.1 F 11/11/24 06:30 Pulse 52 L 11/11/24 07:53 Resp 16 11/11/24 07:53 BP 105/55 11/11/24 06:00 Pulse Ox 96 11/11/24 07:53 O2 Del Method Nasal Cannula 11/11/24 07:53 O2 Flow Rate 3 11/11/24 07:53 FiO2 21 11/09/24 19:52 11/10/24 11/11/24 11/11/24 22:59 06:59 14:59 Intake Total 50 / 300 275 / 575 50 / 50 Output Total 10 / 10 300 / 310 140 / 140 Balance 40 / 290 -25 / 265 -90 / -90 Weight last 48 hrs Weight 58.23 kg Weight 62.199 kg Weight 61.008 kg Physical Exam 2 Narrative: General: Alert oriented x3, patient seen on 2L NC and not in distress with right-sided chest tube in place and attached to negative suction with's waterseal oscillating with cough HEENT: Normocephalic, atraumatic, EOMI, breathing comfortably, on 2 L nasal without any distress Cardio: Regular rate rhythm, normal S1-S2, no murmurs rubs gallops, JVD normal Respiratory: Good bilateral air entry with mild crepitus of the subcutaneous air near the right-sided chest tube insertion, adequate air entry and chest expansion. No wheezes or crepitations heard GI: Abdomen soft, nontender, nondistended, normoactive bowel sounds present all 4 quadrants, Neuro: No focal neurological deficit Behavior: Appropriate and cooperative Extremities: mild trace edema, no calf tenderness, likely left leg bigger than the other? Skin: grossly unremarkable Data 11/11/24 07:45 11/11/24 07:45 Micro: Microbiology 11/09/24 20:49 Blood Culture - Preliminary Blood Staphylococcus epidermidis 11/09/24 20:51 Blood Culture - Preliminary Blood NEGATIVE TO DATE A&P Assessment and plan 1. Sepsis: 2. Recurrent pleural effusion on right: 3. Insomnia: 4. Gout: 5. Hypertension: 6. Hemochromatosis: 7. Syncope and collapse: 8. Sinus bradycardia: 9. Anemia: Plan: - zosyn and vanc to continue as per pharmacy review,, And blood cultures 1 bottle showed staph epi likely contaminant currently patient stable no acute febrile episodes. Blood culture and Gram stain of pleural sample till date negative -Pleural fluid analysis did not show fluid as empyema since the pH was in the normal range as per the lab parameters furthermore does not meet the lights criteria for exudative in nature. - continue on duonebs - Patient s/p right-sided chest tube insertion currently followed by the interventional skin care consultant and possible lytic therapy later on as per verbal discussion - cardio onboard and later for possible stress treadmill test for chronotropy monitoring. - resume home medications, allopurinol for gout, melatonin and amitriptyline for insomnia - continue holding antihypertensive - Monitor CBC for hemochromatosis - Heparin for VTE prophylaxis - VTE: Heparin twice daily - diet: Cardiac diet PDMP PDMP Reviewed: Not Reviewed Attestations 2 Medical Necessity Statement*: Keya Sharma's hospital stay will require greater than 2 midnights for right- sided pleural effusion status post chest tube insertion Time Spent in Patient Care: 16 - 35 minutes (>than 50% of time sp ent in counselling and/or direct pt care on unit) . Other Attestations: Patient condition has been discussed at length with the patient/family, I have independently reviewed the chart labs imaging and diagnostics and EKG. the goals of care and code status with the patient/family/NOK/legal litigation claim representative, and documented accordingly. The patient/family has been informed about the current condition and further plan of care. Agreed with the plan of care and understood without any language barrier. This documentation was created by videoNEXT complaint evaluation officer software. Every effort was made to ensure accuracy of complaint evaluation officer. Any obvious errors or omissions should be clarified with the author of the document. Coding Level of Care Code 87865 Diagnoses Sepsis A41.9 Recurrent pleural effusion on right J90 Insomnia G47.00 Gout M10.9 Hypertension I10 Hemochromatosis E83.119 Syncope and collapse R55 Sinus bradycardia R00.1 Anemia D64.9
--- NOTE | 2024-11-11 10:26 | PC.SOCIAL ---
IMM Update pg 2 of IMM Updated and reviewed w/ patient. Copy provided and copy dated, initialed and placed in chart.
--- NOTE | 2024-11-11 11:15 | P.PN_ITS ---
<Statement entered by Alejandro Cardenas M.D - 11/12/24 11:06> Patient was cared for in conjunction with an advanced practice practitioner.? I reviewed the chart and all pertinent data including imaging, telemetry, and laboratory results.? I discussed the patient in detail with the advanced practice practitioner.? Please see?their note for progress note, testing results and agreed upon plan of care for the patient. Subjective 2 Subjective: She had chest tube placed yesterday. Heart rate in the upper 50s to 70s currently. Shortness of breath is improved, no chest pain. Vitals/I&O/Wt Last Vital Signs Temp 97.1 F L 11/11/24 08:00 Pulse 56 L 11/11/24 08:00 Resp 20 H 11/11/24 08:00 BP 106/43 11/11/24 08:00 Pulse Ox 97 11/11/24 08:00 O2 Del Method Nasal Cannula 11/11/24 08:00 O2 Flow Rate 3 11/11/24 08:00 FiO2 21 11/09/24 19:52 11/10/24 11/11/24 11/11/24 22:59 06:59 14:59 Intake Total 50 / 575 275 / 575 50 / 50 Output Total 10 / 310 300 / 310 140 / 140 Balance 40 / 265 -25 / 265 -90 / -90 Weight last 48 hrs Weight 128 lb 6 oz Weight 137 lb 2 oz Weight 134 lb 8 oz Physical Exam 2 Const: COMMON NORMALS: no acute distress and patient oriented x3 GENERAL APPEARANCE: cooperative and comfortable ORIENTATION/CONSCIOUSNESS: Yes awake, Yes oriented to person, Yes oriented to place and Yes oriented to time Chest: COMMONS NORMALS: normal inspection of the chest and normal palpation of entire chest wall CHEST: Yes Symmetrical chest wall rise Resp: COMMON NORMALS: normal respiratory effort, No retractions and No use of accessory muscles EFFORT & INSPECTION: Yes symmetric chest movement A USCULTATION: rhonchi Cardio: COMMON NORMALS: regular rate, regular rhythm, S1 normal heart sound present, S2 normal heart sound present, No gallops present (Cardio), No clicks present (Cardio), No murmurs present (Cardio) and No rub (Cardio) RATE: r egular rate RHYTHM: regular rhythm HEART SOUNDS: S1 normal heart sound present and S2 normal heart sound present PERIPHERAL PULSES: radial pulses present Extremity: COMMON NORMALS: no pedal edema Neuro: COMMON NORMALS: patient oriented x3 and moves all extremities S ENSORIUM/ORIENTATION: Yes oriented to person, Yes oriented to place and Yes oriented to time Data 11/11/24 07:45 11/11/24 07:45 Micro: Microbiology 11/10/24 16:30 Gram Stain - Final Other Source 11/09/24 20:49 Blood Culture - Preliminary Blood Staphylococcus epidermidis 11/09/24 20:51 Blood Culture - Preliminary Blood NEGATIVE TO DATE A&P Assessment and plan 1. Sinus bradycardia: 2. Hypertension: 3. Hemochromatosis: 4. Empyema of right pleural space: Plan: Bradycardia appears to be improving postprocedure, however if heart rate does decrease less than 60 sustained she would need evaluation with a exercise stress test. Obviously with her chest tube she cannot perform this test currently. For purposes of discharge planning, if no significant bradycardia can discharge home with an event monitor when ready. PDMP PDMP Reviewed: Not Reviewed Attestations 2 Medical Necessity Statement*: chest tube Coding Level of Care Code Acute Code for Chg Fwd Diagnoses Sinus bradycardia R00.1 Hypertension I10 Hemochromatosis E83.119 Empyema of right pleural space J86.9
[2024-11-11 12:43] LABS: Total Protein 6.7 g/dL (6.6-8.7)
[2024-11-11] MEDS: WATER FOR INJECTION STERILE INTRAPLEUR ×2 (17:17)
[2024-11-11] MEDS: DORNASE ALFA INTRAPLEUR (17:17)
[2024-11-11] MEDS: ALTEPLASE INTRAPLEUR (17:17)
--- NOTE | 2024-11-11 17:32 | PC.NURSE ---
At 1700 Dr Khan into see patient. MD administered medication as documented into chest tube site. Procedure and medication explained to patient by MD. Patient verbalized understanding. Patient tolerated well. Chest tube off to suction for one hour. Patient was told to walk and move around. Patient up to bathroom. Noted serous fluid leaking from around access site to mid-right back. Dr Khan has seen it and is aware at this time.
--- NOTE | 2024-11-11 18:01 | PC.NURSE ---
Removed clamp and replaced to suction chest tube per Dr Khan instructions. Dr Khan to come see patient
--- NOTE | 2024-11-11 20:27 | P.PCN_ITS ---
Procedure/Consent Time out: Time Out Performed: Yes Consent: Consent for Procedure: Consent obtained from patient Procedure Narrative: Procedure Note: Intrapleural Lytic Therapy Indication: Right residual empyema with loculated pleural effusion. ICD-10 Codes: * J90 ? Pleural effusion, not elsewhere classified (if used for residual effusion documentation) Procedure Performed: Intrapleural fibrinolytic therapy via existing chest tube. CPT Code: 87262 ? Instillation, via chest tube/catheter, agent for fibrinolysis (e.g., alteplase [tPA], urokinase) including subsequent drainage management. Description of Procedure: The patient has a right [address] tube in place for drainage of empyema. Using sterile technique, a mixture of alteplase 6 mg and dornase shelley 5 mg was instilled into the pleural space via the chest tube, followed by a 40 mL saline flush. The chest tube was clamped for 1 hour dwell time, then re-opened to suction for continued drainage. Outcome: The procedure was well tolerated without immediate complications. The chest tube remains to suction for ongoing management. Plan: Continue chest tube drainage and monitor pleural output, respiratory status, and clinical response. Additional doses of intrapleural lytic therapy will be decided tomorrow. Ermias Robertson MD, FACP, FASN Interventional Pulmonary Acute Procedures Epistaxis Control: Time out performed: Yes
--- NOTE | 2024-11-11 20:29 | P.PN_ITS ---
Subjective 2 Subjective: No acute events overnight. Patient reports that significant improvement of the thoracoscopy. Chest tube put out around 200 cc of serosanguineous. Patient is able to ambulate today. I had an extensive discussion with the patient and her son last night but also again I had an extensive discussion with the patient today and recommended transfer to a center with thoracic surgery for evaluation of decortication. Patient completely refusing to be transferred her for thoracic surgery and she is declining any major surgery and she wants to only perform conservative therapy including chest tube intrapleural lytic therapy and antibiotics but she does not want major surgery including VATS. Vitals/I&O/Wt Last Vital Signs Temp 98.5 F 11/11/24 16:00 Pulse 68 11/11/24 19:56 Resp 18 11/11/24 19:56 BP 127/65 11/11/24 19:50 Pulse Ox 95 11/11/24 19:56 O2 Del Method Nasal Cannula 11/11/24 19:56 O2 Flow Rate 2 11/11/24 19:56 FiO2 21 11/09/24 19:52 11/11/24 11/11/24 11/11/24 06:59 14:59 22:59 Intake Total 275 / 575 470 / 470 251.458 / 721.458 Output Total 300 / 310 140 / 140 125 / 265 Balance -25 / 265 330 / 330 126.458 / 456.458 Weight last 48 hrs Weight 128 lb 6 oz Weight 137 lb 2 oz Physical Exam 2 Narrative: General: Alert, oriented, and in no acute distress. Appears well-nourished and well-developed. Head: Normocephalic and atraumatic. Eyes: Pupils equal, round, and reactive to light. Extraocular movements intact. No scleral icterus or conjunctival injection. Ears/Nose/Throat: Nasal mucosa is moist without discharge. Oropharynx is clear without erythema or exudate. Dentition intact. No lesions or thrush. Neck: Supple. No lymphadenopathy Cardiovascular: Regular rate and rhythm. Normal S1 and S2. No murmurs, gallops, or rubs. No peripheral edema. Respiratory: Good air entry bilaterally with rhonchi at the right base. Chest tube is tidaling well with no airleak. Output was serosanguineous Abdomen: Soft, non-tender, non-distended. Normoactive bowel sounds. Extremities: No cyanosis, clubbing, or edema. Full range of motion. Peripheral pulses palpable and symmetric. Skin: Warm and dry. No rashes, lesions, or ulcers. Neurology: Alert and oriented to person, place, and time. Grossly intact with no focal deficit. Psychiatry: Good mood with Appropriate affect. Data 11/12/24 05:11 11/12/24 05:11 Micro: Microbiology 11/10/24 16:30 Gram Stain - Final Other Source Anaerobic Culture - Preliminary Tissue Culture - Preliminary 11/09/24 20:49 Blood Culture - Preliminary Blood Staphylococcus epidermidis 11/09/24 20:51 Blood Culture - Preliminary Blood NEGATIVE TO DATE A&P Assessment and plan 1. Empyema of right pleural space: 2. Recurrent pleural effusion on right: 3. Acute pneumonia: Plan: I reviewed the patient?s CT scan from October 23, 2024, performed at the [facility] in [place]. The images show a significant residual effusion that was not adequately drained by the pigtail catheter placed at that time. She was discharged without a second chest tube but even the first chest tube was removed, leaving her space incompletely drained, which likely led to organization and partial treatment of empyema, as evident in the images. Today?s CT demonstrated evacuation of the posterior collection with some residual fluid and pleural thickening after the medical thoracoscopy and chest tube placement. Lung expansion is otherwise fairly good, though dense consolidations persist. I had an extensive discussion with the patient yesterday with her son present, and again today. She continues to decline transfer for thoracic surgery and possible decortication in [place] or [facility]. She prefers to remain here for conservative management, including chest tube drainage, intrapleural therapy, and antibiotics, and does not wish to undergo major surgery. Fortunately, she appears to be responding to the current chest tube. However, I explained the long-term risk of incomplete re-expansion and potential restrictive physiology. She consented to intrapleural therapy, and we will administer a dose and assess her response. Plan: * Continue intrapleural therapy (dose and reassess response). * Broad-spectrum antibiotics. * Monitor pleural fluid studies, microbiology, and surgical pathology. * Aggressive pain control to prevent splinting. * PT/OT with ambulation every 2?3 hours while awake. * Incentive spirometry and flutter valve use. * Aggressive nutritional support. * Maintain chest tube to suction at ?20 cm H?O. Image from 10/23/2024 [facility] PDMP PDMP Reviewed: Not Reviewed Attestations 2 Medical Necessity Statement*: Patient has chest tube and she needs to stay in the hospital as she is staying on suction Coding Level of Care Code Acute Code for Chg Fwd Diagnoses Empyema of right pleural space J86.9 Recurrent pleural effusion on right J90 Acute pneumonia J18.9 Time Spent (min) 65
[2024-11-11] MEDS: MELATONIN 3 MG TABLET PO (20:42)
[2024-11-12] VITALS (12 sets, daily range): BP systolic 105–131; BP diastolic 50–62; PULSE 48–69; RESP 16–24; TEMP 36.6–36.7; O2SAT 92–94; BMI 28.9
[2024-11-12] MEDS: HYDROmorphone tab 2 MG TABLET PO ×4 (00:45→20:11)
--- NOTE | 2024-11-12 01:18 | PC.NURSE ---
Keya Sharma rm 105 patient with chest tube is having some pain and I cannot give her another pain medication until 01:23. Dr Tse was notified and gave order to give pain medication early.
[2024-11-12] MEDS: HYDROmorphone tab 2 MG TABLET 1 MG PO (03:41)
[2024-11-12 05:43] LABS: Hematocrit 28.5 % (36-47); Hemoglobin 9.20 g/dL (11.27-16.99); Mean Corpuscular HGB Conc 32.3 g/dL (30-55); Mean Corpuscular Hemoglobin 31.5 pg (27-33); Mean Corpuscular Volume 97.6 fl (85-98); Nucleated Red Blood Cells % 0 %; Platelet Count 491 10^3/cmm (157-399); Red Blood Count 2.92 10^6/uL (3.85-5.65); White Blood Count 7.02 10^3/uL (3.29-11.43)
--- NOTE | 2024-11-12 05:54 | PC.NURSE ---
Patient stated that she was still in pain and that something felt different and requested to have CXR performed. From what I have assessed the patient does have a grade 1 leak but it is positional, when she is on her side it leaks but when she lays on her back it does not. Dr Tse was notified of the pain and patient request and of the grade 1 positional leak, CXR was ordered and he also gave orders for 1mg dilaudid for pain and was instructed to monitor for any changes.
--- NOTE | 2024-11-12 06:00 | XR_ITS ---
WS: [id number] Exam: XR chest 1V [id number] Date/Time of Exam: 11/12/2024 6:00 AM Reason For Exam: Follow on chest tube and pleural effusion. Comparison 11/10/2024. Improving RIGHT lower lobe infiltrate and atelectasis. Small RIGHT pleural effusion. Right-sided chest tube unchanged in position. No pneumothorax. Plate atelectasis in the LEFT lower lobe. Heart size is normal. The mediastinum is normal in contour. Mild degenerative change and levoscoliosis of the T-spine. Minimal subcu emphysema along the RIGHT rib cage. XR/XR chest 1V [id number] IMPRESSION: 1. Improving RIGHT lower lobe infiltrate and atelectasis. Small residual RIGHT pleural effusion. No pneumothorax. 2. Right-sided thoracostomy tube unchanged in position.
--- NOTE | 2024-11-12 06:00 | XR_ITS ---
WS: [id number] Exam: XR chest 1V portable [id number] Date/Time of Exam: 11/12/2024 8:29 AM Reason For Exam: pain/chest tube Comparison made to the exam performed earlier on the same day at 3:53 a.m. Chest x-ray is unchanged. Residual infiltrate and atelectasis on the RIGHT lower lung zone and small RIGHT pleural effusion. RIGHT thoracostomy tube unchanged. Like atelectasis in the LEFT base. Normal cardiomediastinal silhouette. No pneumothorax. XR/XR chest 1V portable [id number] IMPRESSION: 1. Chest radiograph unchanged since the earlier study performed on the same day .
[2024-11-12 06:04] LABS: Alanine Aminotransferase 12 U/L (0-33); Albumin Level 2.2 g/dL (3.5-5.2); Alkaline Phosphatase 63 U/L (35-105); Anion Gap 11.7 (5-19); Aspartate Amino Transferase 13 U/L (0-32); Blood Urea Nitrogen 11 mg/dL (8-23); Calcium 8.3 mg/dL (8.5-10.5); Carbon Dioxide 26 mmol/L (22-29); Chloride 103 mmol/L (98-107); Creatinine Clr Calc Pharmacy 45.5790; Globulin 3.4 g/dL (1.3-4.6); Glucose 104 mg/dL (65-115); Osmolality Calculated 284 mOsm/kg (285-295); Potassium 3.7 mmol/L (3.5-5.1); Sodium 137 mmol/L (136-145); Total Protein 5.6 g/dL (6.6-8.7)
[2024-11-12] MEDS: piperacillin-tazobactam 3.375 GM in sodium chloride 0.9% (plus) 50 ML IV ×3 (06:55→23:00)
--- NOTE | 2024-11-12 09:40 | P.PCN_ITS ---
Procedure/Consent Time out: Time Out Performed: Yes Consent: Consent for Procedure: Consent obtained from patient Procedure Narrative: Procedure Note: Intrapleural Lytic Therapy Indication: Right residual empyema with loculated pleural effusion. ICD-10 Codes: J90 ? Pleural effusion, not elsewhere classified (if used for residual effusion documentation) Procedure Performed: Intrapleural fibrinolytic therapy via existing chest tube. CPT Code: 26477 ? Instillation, via chest tube/catheter, agent for fibrinolysis (e.g., alteplase [tPA], urokinase) including subsequent drainage management. Description of Procedure: The patient has a right 20 [address]har[address] tube in place for drainage of empyema. Using sterile technique, a mixture of alteplase 6 mg and dornase shelley 5 mg was instilled into the pleural space via the chest tube, followed by a 40 mL saline flush. The chest tube was clamped for 1 hour dwell time, then re-opened to suction for continued drainage. Outcome: The procedure was well tolerated without immediate complications. The chest tube remains to suction for ongoing management. Plan: Continue chest tube drainage and monitor pleural output, respiratory status, and clinical response. Ermias Robertson MD, FACP, FASN Interventional Pulmonary Acute Procedures Epistaxis Control: Time out performed: Yes
[2024-11-12] MEDS: WATER FOR INJECTION STERILE INTRAPLEUR ×2 (10:06→10:07)
[2024-11-12] MEDS: ALTEPLASE INTRAPLEUR (10:06)
[2024-11-12] MEDS: DORNASE ALFA INTRAPLEUR (10:07)
--- NOTE | 2024-11-12 10:12 | PC.NURSE ---
Intraplerualitic therapy 0956 Patient alert oriented name and stated and confirmed consent on chart, patient agrees and understands treatment including risks and benefits provider at bedside to administer medication via chest tube Medications administered at 0957 patient tolerated well Dressing changed Instruction received at bedside to leave chest tube clamped until 1120 am end time 1002
--- NOTE | 2024-11-12 10:58 | P.PN_ITS ---
<Statement entered by Alejandro Cardenas M.D - 11/12/24 11:06> Patient was cared for in conjunction with an advanced practice practitioner.? I reviewed the chart and all pertinent data including imaging, telemetry, and laboratory results.? I discussed the patient in detail with the advanced practice practitioner.? Please see?their note for progress note, testing results and agreed upon plan of care for the patient. Subjective 2 Subjective: She has had sinus bradycardia overnight and this morning while awake, lowest heart rate on telemetry is 33 bpm. She was asymptomatic at that rate. She tells me she previously had a stress test 5 years ago due to bradycardia, per patient report was normal. She has never had a coronary angiogram. No chest pain or worsening shortness of breath. Blood pressure stable. Vitals/I&O/Wt Last Vital Signs Temp 98.0 F 11/12/24 08:00 Pulse 51 L 11/12/24 08:47 Resp 22 H 11/12/24 08:47 BP 105/50 11/12/24 08:00 Pulse Ox 94 11/12/24 08:47 O2 Del Method Nasal Cannula 11/12/24 08:47 O2 Flow Rate 1.5 11/12/24 08:47 FiO2 21 11/09/24 19:52 11/11/24 11/12/24 11/12/24 22:59 06:59 14:59 Intake Total 270.000 / 790.000 50 / 790.000 100 / 100 Output Total 125 / 265 14 / 14 Balance 145.000 / 525.000 50 / 525.000 86 / 86 Weight last 48 hrs Weight 148 lb 3 oz Weight 128 lb 6 oz Physical Exam 2 Const: COMMON NORMALS: no acute distress and patient oriented x3 GENERAL APPEARANCE: cooperative and comfortable ORIENTATION/CONSCIOUSNESS: Yes awake, Yes oriented to person, Yes oriented to place and Yes oriented to time Chest: COMMONS NORMALS: normal inspection of the chest and normal palpation of entire chest wall CHEST: Yes Symmetrical chest wall rise Resp: COMMON NORMALS: normal respiratory effort, No retractions and No use of accessory muscles EFFORT & INSPECTION: Yes symmetric chest movement A USCULTATION: rhonchi OTHER: productive cough Cardio: COMMON NORMALS: regular rhythm, S1 normal heart sound present, S2 normal heart sound present, No gallops present (Cardio), No clicks present (Cardio), No murmurs present (Cardio) and No rub (Cardio) RATE: bradycardic RHYTHM: regular rhythm HEART SOUNDS: S1 normal heart sound present and S2 normal heart sound present PERIPHERAL PULSES: radial pulses present Extremity: COMMON NORMALS: no pedal edema Neuro: COMMON NORMALS: patient oriented x3 and moves all extremities S ENSORIUM/ORIENTATION: Yes oriented to person, Yes oriented to place and Yes oriented to time Data 11/12/24 05:11 11/12/24 05:11 Micro: Microbiology 11/10/24 16:30 Gram Stain - Final Other Source Anaerobic Culture - Preliminary Tissue Culture - Preliminary 11/09/24 20:49 Blood Culture - Preliminary Blood Staphylococcus epidermidis A&P Assessment and plan 1. Sinus bradycardia: 2. Hemochromatosis: 3. Anemia: 4. Recurrent pleural effusion on right: Plan: Current plan for exercise MIBI when chest tube is out and patient cleared from a pulmonary perspective. She is not on any rate limiting medication. PDMP PDMP Reviewed: Not Reviewed Attestations 2 Medical Necessity Statement*: Chest tube for pleural effusion, bradycardia workup Coding Level of Care Code Acute Code for g Fwd Diagnoses Sinus bradycardia R00.1 Hemochromatosis E83.119 Anemia D64.9 Recurrent pleural effusion on right J90
--- NOTE | 2024-11-12 10:59 | PM.PN ---
Subjective Subjective: No acute events overnight. Patient reports that significant improvement of the thoracoscopy. Chest tube put out 139 mL of serosanguineous. Patient is able to ambulate. Using incentive spirometry. No shortness of breath or increase in cough or any phlegm. Chest tube in place with negative suction attached to waterseal. The waterseal column Moves with coughing. Vitals/I&O/Wt Last Vital Signs Temp 98.0 F 11/12/24 08:00 Pulse 51 L 11/12/24 08:47 Resp 22 H 11/12/24 08:47 BP 105/50 11/12/24 08:00 Pulse Ox 94 11/12/24 08:47 O2 Del Method Nasal Cannula 11/12/24 08:47 O2 Flow Rate 1.5 11/12/24 08:47 FiO2 21 11/09/24 19:52 11/11/24 11/12/24 11/12/24 22:59 06:59 14:59 Intake Total 270.000 / 740.000 50 / 790.000 100 / 100 Output Total 125 / 265 14 / 14 Balance 145.000 / 475.000 50 / 525.000 86 / 86 Weight last 48 hrs Weight 67.217 kg Weight 58.23 kg Physical Exam Narrative: General: Alert oriented x3, patient seen on 2L NC and not in distress with right-sided chest tube in place and attached to negative suction with's waterseal oscillating with cough HEENT: Normocephalic, atraumatic, EOMI, breathing comfortably, on 2 L nasal without any distress Cardio: Regular rate rhythm, normal S1-S2, no murmurs rubs gallops, JVD normal Respiratory: Good bilateral air entry with mild crepitus of the subcutaneous air near the right-sided chest tube insertion, adequate air entry and chest expansion. No wheezes or crepitations heard GI: Abdomen soft, nontender, nondistended, normoactive bowel sounds present all 4 quadrants, Neuro: No focal neurological deficit Behavior: Appropriate and cooperative Extremities: mild trace edema, no calf tenderness, likely left leg bigger than the other? Skin: grossly unremarkable Data 11/12/24 05:11 11/12/24 05:11 Micro: Microbiology 11/10/24 16:30 Gram Stain - Final Other Source Anaerobic Culture - Preliminary Tissue Culture - Preliminary 11/09/24 20:49 Blood Culture - Preliminary Blood Staphylococcus epidermidis A&P Assessment and plan 1. Sepsis: 2. Recurrent pleural effusion on right: 3. Insomnia: 4. Gout: 5. Hypertension: 6. Hemochromatosis: 7. Syncope and collapse: 8. Sinus bradycardia: 9. Anemia: Plan: - zosyn and vanc to continue as per pharmacy review,, And blood cultures 1 bottle showed staph epi likely contaminant currently patient stable no acute febrile episodes. Blood culture and Gram stain of pleural sample till date negative -Pleural fluid analysis likely infective considering high LDH ratio, turbid appearance, high WBCs and lower normal pH of 6.50. Follow final Gram stain currently planing negative - continue on duonebs - Patient s/p right-sided chest tube insertion currently followed by the interventional repairer art objects on dornase shelley lytic therapy started on 11/11/2024 - cardio onboard and later for possible stress treadmill test for chronotropy monitoring. - resume home medications, allopurinol for gout, melatonin and amitriptyline for insomnia -Patient having anemia likely of anemia of chronic disease continue to monitor, anemia workup sent - continue holding antihypertensive - Monitor CBC for hemochromatosis - Heparin for VTE prophylaxis - VTE: Heparin twice daily - diet: Cardiac diet PDMP PDMP Reviewed: Not Reviewed Attestations Medical Necessity Statement*: Keya Sharma's hospital stay will require greater than 2 midnights for management of right-sided likely complicated parapneumonic effusion status post chest tube insertion and on dornase shelley lytic therapy Time Spent in Patient Care: 16 - 35 minutes (>than 50% of time spent in counselling and/or direct pt care on unit). Other Attestations: Patient condition has been discussed at length with the patient/family, I have independently reviewed the chart labs imaging and diagnostics and EKG. the goals of care and code status with the patient/family/NOK/legal sales development representative, and documented accordingly. The patient/family has been informed about the current condition and further plan of care. Agreed with the plan of care and understood without any language barrier. This documentation was created by [employer] employment agency manager software. Every effort was made to ensure accuracy of employment agency manager. Any obvious errors or omissions should be clarified with the author of the document. Coding Level of Care Code 62578 Diagnoses Sepsis A41.9 Recurrent pleural effusion on right J90 Insomnia G47.00 Gout M10.9 Hypertension I10 Hemochromatosis E83.119 Syncope and collapse R55 Sinus bradycardia R00.1 Anemia D64.9
--- NOTE | 2024-11-12 12:13 | PC.NURSE ---
At 1120, patient's chest tube unclamped and placed to suction. Noted return of serosanguinous fluid. Patient denies pain at this time.
[2024-11-12] MEDS: MELATONIN 3 MG TABLET PO (20:11)
--- NOTE | 2024-11-12 21:11 | P.PN_ITS ---
Subjective 2 Subjective: Patient remained hemodynamically stable. She had about 300-350 cc output over the past 24 hours. Recieved a dose of Intrapleural lytic therapy yesterday. Patient is working with PT/OT. Recieving IV Abx. Patient continues to decline to be evaluated for possible VATs as she does not to be transferred to a different facility and she refuses the idea of undergoing major surgery either. Vitals/I&O/Wt Last Vital Signs Temp 98.0 F 11/12/24 08:00 Pulse 57 L 11/12/24 20:21 Resp 18 11/12/24 20:21 BP 129/62 11/12/24 16:00 Pulse Ox 92 11/12/24 20:21 O2 Del Method Nasal Cannula 11/12/24 20: O2 Flow Rate 2 11/12/24 20:21 FiO2 21 11/09/24 19:52 11/12/24 11/12/24 11/12/24 06:59 14:59 22:59 Intake Total 50 / 710.032 6516 / 1240 290 / 1530 Output Total 175 / 189 Balance 50 / 948.308 5321 / 1226 115 / 1341 Weight last 48 hrs Weight 148 lb 3 oz Weight 128 lb 6 oz Physical Exam 2 Narrative: General: Alert, oriented, and in no acute distress. Appears well-nourished and well-developed. Head: Normocephalic and atraumatic. Eyes: Pupils equal, round, and reactive to light. Extraocular movements intact. No scleral icterus or conjunctival injection. Ears/Nose/Throat: Nasal mucosa is moist without discharge. Oropharynx is clear without erythema or exudate. Dentition intact. No lesions or thrush. Neck: Supple. Cardiovascular: Regular rate and rhythm. Normal S1 and S2. No murmurs, gallops, or rubs. No peripheral edema. Respiratory: Good air entry bilaterally with rhonchi at the right base. Chest tube is tidaling well with no airleak. Output was serosanguineous Abdomen: Soft, non-tender, non-distended. Normoactive bowel sounds. Extremities: No cyanosis, clubbing, or edema. Full range of motion. Peripheral pulses palpable and symmetric. Skin: Warm and dry. No rashes, lesions, or ulcers. Neurology: Alert and oriented to person, place, and time. Grossly intact with no focal deficit. Psychiatry: Good mood with Appropriate affect. Data 11/12/24 05:11 11/12/24 05:11 Micro: Microbiology 11/10/24 16:30 Gram Stain - Final Other Source Anaerobic Culture - Preliminary Tissue Culture - Preliminary A&P Assessment and plan 1. Empyema of right pleural space: 2. Recurrent pleural effusion on right: 3. Acute pneumonia: Plan: Patient received a dose of alteplase and dornase with a good response. She feels better today. I had an extensive discussion with the patient again today. She continues to decline transfer for thoracic surgery and possible decortication in [place] or [facility]. She prefers to remain here for conservative management, including chest tube drainage, intrapleural therapy as needed, and antibiotics, and does not wish to undergo major surgery. Fortunately, she appears to be responding to the current regimen. However, I explained the long-term risk of incomplete re-expansion and potential restrictive physiology. Plan: * I will give another dose of tpa/dornase today. * Broad-spectrum antibiotics per hospitalist team. I recommend to consult ID for antibiotic managment. * Monitor pleural fluid studies, microbiology, and surgical pathology. * Aggressive pain control to prevent splinting. * PT/OT with ambulation every 2?3 hours while awake. * Incentive spirometry and flutter valve use. * Aggressive nutritional support. * Maintain chest tube to suction at ?20 cm H2O. Champ Robertson MD, FACP, FASN Interventional Pulmonary PDMP PDMP Reviewed: Not Reviewed Attestations 2 Medical Necessity Statement*: Patient needs to stay in the hospital as she chest tube to suction and getting IV antibiotics. Coding Level of Care Code Acute Code for Chg Fwd Diagnoses Empyema of right pleural space J86.9 Recurrent pleural effusion on right J90 Acute pneumonia J18.9
[2024-11-13] VITALS (13 sets, daily range): BP systolic 107–141; BP diastolic 47–69; PULSE 56–80; RESP 15–25; TEMP 36.5–37.1; O2SAT 91–96
[2024-11-13] MEDS: HYDROmorphone tab 2 MG TABLET PO (02:46)
--- NOTE | 2024-11-13 02:49 | PC.NURSE ---
2020- Notified Dr. Tse that patient has a gurgling/bubbling sound coming from inertion site of chest tube. Chest tube is also having some drainage at the site. Received orders to monitor at this time. 0245- Notified Dr. Tse that patient is having more drainage from insertion site of chest tube and that dressing was reinforced. Patient denies any SOB and o2 sats are 96%. Received orders to notify MD if reinforced dressing becomes saturated.
[2024-11-13 04:56] LABS: Hematocrit 29.1 % (36-47); Hemoglobin 9.20 g/dL (11.27-16.99); Mean Corpuscular HGB Conc 31.6 g/dL (30-55); Mean Corpuscular Hemoglobin 31.0 pg (27-33); Mean Corpuscular Volume 98.0 fl (85-98); Nucleated Red Blood Cells % 0 %; Platelet Count 505 10^3/cmm (157-399); Red Blood Count 2.97 10^6/uL (3.85-5.65); White Blood Count 6.56 10^3/uL (3.29-11.43)
[2024-11-13 05:20] LABS: Alanine Aminotransferase 15 U/L (0-33); Albumin Level 2.2 g/dL (3.5-5.2); Alkaline Phosphatase 64 U/L (35-105); Anion Gap 11.0 (5-19); Aspartate Amino Transferase 17 U/L (0-32); Blood Urea Nitrogen 11 mg/dL (8-23); Calcium 8.5 mg/dL (8.5-10.5); Carbon Dioxide 29 mmol/L (22-29); Chloride 102 mmol/L (98-107); Creatinine Clr Calc Pharmacy 45.5790; Globulin 3.5 g/dL (1.3-4.6); Glucose 107 mg/dL (65-115); Osmolality Calculated 286 mOsm/kg (285-295); Potassium 4.0 mmol/L (3.5-5.1); Sodium 138 mmol/L (136-145); Total Protein 5.7 g/dL (6.6-8.7)
[2024-11-13] MEDS: piperacillin-tazobactam 3.375 GM in sodium chloride 0.9% (plus) 50 ML IV ×3 (06:43→21:18)
--- NOTE | 2024-11-13 07:44 | PC.NURSE ---
Notified Dr. Tse that there is no tidaling in her chest tube and the output has seemed to decrease. Also notified that so far the reinforced dressing is not saturated. No new orders received.
--- NOTE | 2024-11-13 08:00 | PM.PN ---
Subjective Subjective: Patient remained hemodynamically stable. had around 250 ml of drainage from chest tube in 24 hours. Recieved a dose of Intrapleural lytic therapy since 11/11/24. Patient is working with PT/OT. Recieving IV Abx. Patient continues to decline to be evaluated for possible VATs as she does not to be transferred to a different facility and she refuses the idea of undergoing major surgery either as per disucssion with the interventional pulm currently stable. Vitals/I&O/Wt Last Vital Signs Temp 98.5 F 11/13/24 04:02 Pulse 70 11/13/24 07:31 Resp 18 11/13/24 07:31 BP 115/53 11/13/24 04:02 Pulse Ox 96 11/13/24 07:31 O2 Del Method Nasal Cannula 11/13/24 07:31 O2 Flow Rate 2 11/13/24 07:31 FiO2 21 11/09/24 19:52 11/12/24 11/13/24 11/13/24 22:59 06:59 14:59 Intake Total 290 / 1530 50 / 1580 Output Total 175 / 189 70 / 259 Balance 115 / 1341 -20 / 1321 -20 / -20 Weight last 48 hrs Weight 67.217 kg Physical Exam Narrative: General: Alert oriented x3, patient seen on 2L NC and not in distress with right-sided chest tube in place and attached to negative suction with's waterseal oscillating with cough HEENT: Normocephalic, atraumatic, EOMI, breathing comfortably, on 2 L nasal without any distress Cardio: Regular rate rhythm, normal S1-S2, no murmurs rubs gallops, JVD normal Respiratory: Good bilateral air entry with mild crepitus of the subcutaneous air that is improving near the right-sided chest tube insertion, adequate air entry and chest expansion. No wheezes or crepitations heard GI: Abdomen soft, nontender, nondistended, normoactive bowel sounds present all 4 quadrants, Neuro: No focal neurological deficit Behavior: Appropriate and cooperative Extremities: mild trace edema, no calf tenderness, both LLE normal in size and comparable Skin: grossly unremarkable Data 11/13/24 04:21 11/13/24 04:21 Micro: Microbiology 11/10/24 16:30 Gram Stain - Final Other Source Anaerobic Culture - Preliminary Tissue Culture - Preliminary A&P Assessment and plan 1. Sepsis: 2. Recurrent pleural effusion on right: 3. Insomnia: 4. Gout: 5. Hypertension: 6. Hemochromatosis: 7. Syncope and collapse: 8. Sinus bradycardia: 9. Anemia: Plan: - zosyn and vanc to continue as per pharmacy review,, And blood cultures 1 bottle showed staph epi likely contaminant currently patient stable no acute febrile episodes. Blood culture and Gram stain of pleural sample till date negative -Pleural fluid analysis likely infective considering high LDH ratio, turbid appearance, high WBCs and lower normal pH of 6.50. Follow final Gram stain currently planing negative, continue on abx. - continue on duonebs - Patient s/p right-sided chest tube insertion currently followed by the interventional gasoline catalyst operator on dornase shelley lytic therapy started on 11/11/2024 - cardio onboard and later for possible stress treadmill test for chronotropy monitoring. - resume home medications, allopurinol for gout, melatonin and amitriptyline for insomnia -Patient having anemia likely of anemia of chronic disease continue to monitor, anemia workup sent and to follow - continue holding antihypertensive at the moment, and can consider small dose of lasix 20mg as needed based on clinical assessment - Monitor CBC for hemochromatosis - Heparin for VTE prophylaxis - VTE: Heparin twice daily - diet: Cardiac diet PDMP PDMP Reviewed: Not Reviewed Attestations Medical Necessity Statement*: Keya Sharma's hospital stay will require greater than 2 midnights for management of right-sided likely complicated parapneumonic effusion status post chest tube insertion and on dornase shelley lytic therapy Time Spent in Patient Care: 16 - 35 minutes (>than 50% of time spent in counselling and/or direct pt care on unit). Other Attestations: Patient condition has been discussed at length with the patient/family, I have independently reviewed the chart labs imaging and diagnostics and EKG. the goals of care and code status with the patient/family/NOK/legal industrial sales representative, and documented accordingly. The patient/family has been informed about the current condition and further plan of care. Agreed with the plan of care and understood without any language barrier. This documentation was created by [employer] ball thread machine tender software. Every effort was made to ensure accuracy of ball thread machine tender. Any obvious errors or omissions should be clarified with the author of the document. Coding Level of Care Code 93326 Diagnoses Sepsis A41.9 Recurrent pleural effusion on right J90 Insomnia G47.00 Gout M10.9 Hypertension I10 Hemochromatosis E83.119 Syncope and collapse R55 Sinus bradycardia R00.1 Anemia D64.9
[2024-11-13 08:48] LABS: Ferritin 261 ng/mL (15-150); Iron 23 ug/dL (37-145); Total Iron Binding Capacity 121 mcg/dl; Unsaturated Iron Binding 98 ug/dL (112-347)
[2024-11-13 09:04] LABS: Vitamin B12 500 pg/mL (232-1245)
--- NOTE | 2024-11-13 09:15 | P.PN_ITS ---
<Statement entered by Alejandro Cardenas M.D - 11/15/24 11:57> Patient was cared for in conjunction with an advanced practice practitioner.? I reviewed the chart and all pertinent data including imaging, telemetry, and laboratory results.? I discussed the patient in detail with the advanced practice practitioner.? Please see?their note for progress note, testing results and agreed upon plan of care for the patient. Subjective 2 Subjective: No significant bradycardia overnight. No chest pain or shortness of breath. Still has chest tube in Vitals/I&O/Wt Last Vital Signs Temp 97.7 F 11/13/24 12:00 Pulse 64 11/13/24 12:00 Resp 18 11/13/24 12:00 BP 107/47 11/13/24 12:00 Pulse Ox 95 11/13/24 12:00 O2 Del Method Nasal Cannula 11/13/24 12:00 O2 Flow Rate 2 11/13/24 07:31 FiO2 21 11/09/24 19:52 11/12/24 11/13/24 11/13/24 22:59 06:59 14:59 Intake Total 290 / 1580 50 / 1580 50 / 50 Output Total 175 / 259 70 / 259 30 / 30 Balance 115 / 1321 -20 / 1321 20 / 20 Weight last 48 hrs Weight 148 lb 3 oz Physical Exam 2 Const: COMMON NORMALS: no acute distress and patient oriented x3 GENERAL APPEARANCE: cooperative and comfortable ORIENTATION/CONSCIOUSNESS: Yes awake, Yes oriented to person, Yes oriented to place and Yes oriented to time Chest: COMMONS NORMALS: normal inspection of the chest and normal palpation of entire chest wall CHEST: Yes Symmetrical chest wall rise Resp: COMMON NORMALS: normal respiratory effort, No retractions and No use of accessory muscles EFFORT & INSPECTION: Yes symmetric chest movement A USCULTATION: rhonchi (left side clear, right sided rhonchi) OTHER: notes productive cough Cardio: COMMON NORMALS: regular rate, regular rhythm, S1 normal heart sound present, S2 normal heart sound present, No gallops present (Cardio), No clicks present (Cardio), No murmurs present (Cardio) and No rub (Cardio) RATE: r egular rate RHYTHM: regular rhythm HEART SOUNDS: S1 normal heart sound present and S2 normal heart sound present PERIPHERAL PULSES: radial pulses present Extremity: COMMON NORMALS: no pedal edema Neuro: COMMON NORMALS: patient oriented x3 and moves all extremities S ENSORIUM/ORIENTATION: Yes oriented to person, Yes oriented to place and Yes oriented to time Data 11/13/24 04:21 11/13/24 04:21 Micro: Microbiology 11/10/24 16:30 Gram Stain - Final Other Source Anaerobic Culture - Preliminary Tissue Culture - Final A&P Assessment and plan 1. Sinus bradycardia: 2. Hypertension: 3. Anemia: 4. Recurrent pleural effusion on right: Plan: Current plan for exercise MIBI to evaluate bradycardia when chest tube is out and patient cleared from a pulmonary perspective. She is not on any rate limiting medication. PDMP PDMP Reviewed: Not Reviewed Attestations 2 Medical Necessity Statement*: Per hospitalist Coding Level of Care Code Acute Code for [facility] Diagnoses Sinus bradycardia R00.1 Hypertension I10 Anemia D64.9 Recurrent pleural effusion on right J90
--- NOTE | 2024-11-13 09:57 | PC.NURSE ---
Chest tube dressing site changed at 0945. No clots or occlusions seen at chest tube insertion site. Site redressed with new gauze and tegaderm. VIKTORIYA Aparicio at bedside with nurse.
--- NOTE | 2024-11-13 10:58 | XRR_ITS ---
PROCEDURE INFORMATION: Exam: XR Chest Exam date and time: 11/13/2024 9:51 AM Age: 84 years old Clinical indication: Device placement; Chest tube; Additional info: Post chest tube and lytic therapy fu TECHNIQUE: Imaging protocol: Radiologic exam of the chest. Views: 1 view. COMPARISON: CR XR chest 1V portable [id number] 11/12/2024 8:33 AM FINDINGS: Tubes, catheters and devices: The right-sided chest tube is stable. Lungs: There are grossly stable right lower lobe infiltrates concerning for pneumonia. There is minimal infiltrate versus atelectasis of the left lung base. Pleural spaces: No evidence of a pneumothorax on either side. There is trace right pleural effusion. Heart/Mediastinum: The heart size is stable. Bones/joints: Unremarkable. XR/XR chest 1V portable [id number] IMPRESSION: Stable bibasilar basilar infiltrate and trace right pleural effusion.
--- NOTE | 2024-11-13 11:04 | PC.SOCIAL ---
IMM Update pg 2 of IMM Updated and reviewed w/ patient. Copy provided and copy dated, initialed and placed in chart.
[2024-11-13] MEDS: MELATONIN 3 MG TABLET PO (20:04)
[2024-11-14] VITALS (13 sets, daily range): BP systolic 108–163; BP diastolic 57–85; PULSE 52–71; RESP 17–28; TEMP 36.2–37; O2SAT 92–96
[2024-11-14 04:35] LABS: Hematocrit 28.3 % (36-47); Hemoglobin 9.00 g/dL (11.27-16.99); Mean Corpuscular HGB Conc 31.8 g/dL (30-55); Mean Corpuscular Hemoglobin 31.4 pg (27-33); Mean Corpuscular Volume 98.6 fl (85-98); Nucleated Red Blood Cells % 0 %; Platelet Count 496 10^3/cmm (157-399); Red Blood Count 2.87 10^6/uL (3.85-5.65); White Blood Count 7.01 10^3/uL (3.29-11.43)
[2024-11-14 04:55] LABS: Alanine Aminotransferase 15 U/L (0-33); Albumin Level 2.3 g/dL (3.5-5.2); Alkaline Phosphatase 65 U/L (35-105); Anion Gap 10.0 (5-19); Aspartate Amino Transferase 18 U/L (0-32); Blood Urea Nitrogen 14 mg/dL (8-23); Calcium 8.7 mg/dL (8.5-10.5); Carbon Dioxide 28 mmol/L (22-29); Chloride 102 mmol/L (98-107); Creatinine Clr Calc Pharmacy 44.9855; Globulin 3.4 g/dL (1.3-4.6); Glucose 103 mg/dL (65-115); Osmolality Calculated 283 mOsm/kg (285-295); Potassium 4.0 mmol/L (3.5-5.1); Sodium 136 mmol/L (136-145); Total Protein 5.7 g/dL (6.6-8.7)
[2024-11-14] MEDS: piperacillin-tazobactam 3.375 GM in sodium chloride 0.9% (plus) 50 ML IV ×3 (05:00→23:26)
--- NOTE | 2024-11-14 06:00 | XRR_ITS ---
PROCEDURE INFORMATION: Exam: XR Chest Exam date and time: 11/14/2024 7:35 AM Age: 84 years old Clinical indication: Device placement; Chest tube; Additional info: Follow up post chest tube improvement TECHNIQUE: Imaging protocol: Radiologic exam of the chest. Views: 1 view. COMPARISON: CR XR chest 1V portable [id number] 11/13/2024 9:51 AM FINDINGS: Tubes, catheters and devices: A right-sided chest tube is seen. Lungs: Persistent bibasilar opacities, right greater than left. Pleural spaces: A loculated hydropneumothorax at the right base is similar to prior. Small left pleural effusion. Heart/Mediastinum: No gross evidence of pneumomediastinum. The cardiac silhouette is unchanged. Bones/joints: No gross fracture. XR/XR chest 1V portable [id number] IMPRESSION: 1. A right-sided chest tube is seen. 2. A loculated hydropneumothorax at the right base is similar to prior. 3. Persistent bibasilar opacities, right greater than left. 4. Small left pleural effusion.
--- NOTE | 2024-11-14 08:21 | PM.PN ---
Subjective Subjective: the patient was seen in the morning and was in mild distress, she has been on 2-3 L NC. she further mentioned that she is on HCT as in her one of the anti HTN medications that makes her urinate properly. reviewed the pt chart and started on her home medication one dose of lasix 20mg stat. otherwise doing better, the chest drain is getting clearer and more serosanguis than before chest tube drain around 120ml Vitals/I&O/Wt Last Vital Signs Temp 97.1 F L 11/14/24 07:56 Pulse 54 L 11/14/24 07:56 Resp 22 H 11/14/24 07:56 BP 132/64 11/14/24 07:56 Pulse Ox 96 11/14/24 07:56 O2 Del Method Nasal Cannula 11/14/24 07:56 O2 Flow Rate 2 11/14/24 07:56 FiO2 21 11/09/24 19:52 11/13/24 11/14/24 11/14/24 22:59 06:59 14:59 Intake Total 810 / 1330 300 / 1630 Output Total 90 / 120 30 / 150 Balance 720 / 1210 270 / 1480 Weight last 48 hrs Weight 65.453 kg Physical Exam Narrative: General: Alert oriented x3, patient seen on 2-3 L NC and not in distress with right-sided chest tube in place and attached to the water seal HEENT: Normocephalic, atraumatic, EOMI, breathing comfortably, on 2 L nasal without any distress Cardio: Regular rate rhythm, normal S1-S2, no murmurs rubs gallops, JVD normal Respiratory: Good bilateral air entry with mild crepitus of the subcutaneous air that is improving near the right-sided chest tube insertion, adequate air entry and chest expansion. No wheezes or crepitations heard GI: Abdomen soft, nontender, nondistended, normoactive bowel sounds present all 4 quadrants, Neuro: No focal neurological deficit Behavior: Appropriate and cooperative Extremities: mild trace edema, no calf tenderness, both LLE normal in size and comparable Skin: grossly unremarkable Data 11/14/24 02:30 11/14/24 02:30 Micro: Microbiology 11/10/24 16:30 Gram Stain - Final Other Source Anaerobic Culture - Preliminary Tissue Culture - Final 11/09/24 20:49 Blood Culture - Final Blood Staphylococcus epidermidis A&P Assessment and plan 1. Sepsis: 2. Recurrent pleural effusion on right: 3. Insomnia: 4. Gout: 5. Hypertension: 6. Hemochromatosis: 7. Syncope and collapse: 8. Sinus bradycardia: 9. Anemia: Plan: -complicated parapneumonic effusion s/p drainage and chest tube: zosyn and vanc to continue as per pharmacy review, And blood cultures 1 bottle showed staph epi likely contaminant Blood culture and Gram stain of pleural sample till date negative (Pleural fluid analysis likely infective considering high LDH ratio, turbid appearance, high WBCs and lower normal pH of 6.50). - Patient s/p right-sided chest tube insertion currently followed by the interventional liquor stores and agencies supervisor on dornase shelley lytic therapy started on 11/11/2024 - keep chest tube at negative suction -[id number] as per pulm - as per the ID verbal discussion to send for TB quantiferon, histoplasma ab in blood and urine ag and cocciodio ab serology, called the lab to add mycobacterial culture/smear and fungal culture on the BF pleural and placed orders after confirmation, to follow the results - cont duonebs - pt currently stable and if no growth, and stable as per inter pulm the for discharge on augmentin and levolfoxacin as per ID and to follow ID as outpatient -Sinus wei: - exercise MIBI to evaluate bradycardia when chest tube is out and patient cleared from a pulmonary perspective. 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 to add iron supplements Gout: - resume home medications, allopurinol for gout insomnia: melatonin and amitriptyline for insomnia HTN: continue home medication triemterene/HCT for BP control, hold if the systolic is less than 100mmg Hemachromatosis: - Monitor CBC for hemochromatosis VTE: - VTE: Heparin twice daily - diet: Cardiac diet PDMP PDMP Reviewed: Not Reviewed Attestations Medical Necessity Statement*: Keya Sharma's hospital stay will require greater than 2 midnights for management of right-sided likely complicated parapneumonic effusion status post chest tube insertion and on dornase shelley lytic therapy. Time Spent in Patient Care: 16 - 35 minutes (>than 50% of time spent in counselling and/or direct pt care on unit). Other Attestations: Patient condition has been discussed at length with the patient/family, I have independently reviewed the chart labs imaging and diagnostics and EKG. the goals of care and code status with the patient/family/NOK/legal authorization representative, and documented accordingly. The patient/family has been informed about the current condition and further plan of care. Agreed with the plan of care and understood without any language barrier. This documentation was created by [employer] latex spooler software. Every effort was made to ensure accuracy of latex spooler. Any obvious errors or omissions should be clarified with the author of the document. Coding Level of Care Code 49850 Diagnoses Sepsis A41.9 Recurrent pleural effusion on right J90 Insomnia G47.00 Gout M10.9 Hypertension I10 Hemochromatosis E83.119 Syncope and collapse R55 Sinus bradycardia R00.1 Anemia D64.9
--- NOTE | 2024-11-14 09:08 | P.PN_ITS ---
Subjective 2 Subjective: Patient is doing well. Heart rates have improved. Vitals/I&O/Wt Last Vital Signs Temp 97.1 F L 11/14/24 07:56 Pulse 58 L 11/14/24 08:00 Resp 18 11/14/24 08:00 BP 132/64 11/14/24 07:56 Pulse Ox 95 11/14/24 08:00 O2 Del Method Nasal Cannula 11/14/24 08:00 O2 Flow Rate 2 11/14/24 08:00 FiO2 21 11/09/24 19:52 11/13/24 11/14/24 11/14/24 22:59 06:59 14:59 Intake Total 810 / 1330 300 / 1630 Output Total 90 / 120 30 / 150 Balance 720 / 1210 270 / 1480 Weight last 48 hrs Weight 144 lb 4.8 oz Physical Exam 2 Narrative: GENERAL: Patient is alert, awake and oriented x3. [] NECK: No jugular vein distension. [] HEENT: No cyanosis. No icterus. No pallor. [] HEART: Regular S1 and S2. No murmur, rub or gallop. [] LUNGS: Clear to auscultate bilaterally. [] CENTRAL NERVOUS SYSTEM: Grossly nonfocal. [] EXTREMITIES: Lower extremities with no edema bilaterally. Data 11/15/24 02:36 11/15/24 02:36 Micro: Microbiology 11/10/24 16:30 Gram Stain - Final Other Source Anaerobic Culture - Preliminary Tissue Culture - Final 11/09/24 20:49 Blood Culture - Final Blood Staphylococcus epidermidis A&P Assessment and plan 1. Sinus bradycardia: 2. Hypertension: 3. Anemia: 4. Recurrent pleural effusion on right: Plan: Patient's heart rates on average have improved significantly. She is asymptomatic. On Saturday we will reassess need for exercise stress test after chest tube is out. Thank you for involving us with care of this patient. Please call with questions. PDMP PDMP Reviewed: Not Reviewed Attestations 2 Medical Necessity Statement*: Care expected to cross 2 midnights. Coding Level of Care Code Acute Code for [facility] Diagnoses Sinus bradycardia R00.1 Hypertension I10 Anemia D64.9 Recurrent pleural effusion on right J90
[2024-11-14] MEDS: FUROsemide 10 mg/mL SDV 2mL 20 MG IVP (14:15)
[2024-11-14 14:25] LABS: Pleural Fld Adenosine Deami 33.4 U/L (<9.2)
[2024-11-14] MEDS: HYDROmorphone tab 2 MG TABLET PO (18:45)
--- NOTE | 2024-11-14 18:59 | PC.NURSE ---
nurse from [facility] checked status of chest tube..after new order received.stated it was good at 20 cm water seal
[2024-11-14] MEDS: MELATONIN 3 MG TABLET PO (21:06)
[2024-11-15] VITALS (13 sets, daily range): BP systolic 115–132; BP diastolic 56–65; PULSE 50–75; RESP 16–29; TEMP 36.3–37; O2SAT 92–97
[2024-11-15 04:43] LABS: Hematocrit 29.5 % (36-47); Hemoglobin 9.30 g/dL (11.27-16.99); Mean Corpuscular HGB Conc 31.5 g/dL (30-55); Mean Corpuscular Hemoglobin 30.8 pg (27-33); Mean Corpuscular Volume 97.7 fl (85-98); Nucleated Red Blood Cells % 0 %; Platelet Count 522 10^3/cmm (157-399); Red Blood Count 3.02 10^6/uL (3.85-5.65); White Blood Count 6.67 10^3/uL (3.29-11.43)
[2024-11-15 05:04] LABS: Alanine Aminotransferase 14 U/L (0-33); Albumin Level 2.5 g/dL (3.5-5.2); Alkaline Phosphatase 71 U/L (35-105); Anion Gap 10.8 (5-19); Aspartate Amino Transferase 18 U/L (0-32); Blood Urea Nitrogen 13 mg/dL (8-23); Calcium 8.9 mg/dL (8.5-10.5); Carbon Dioxide 30 mmol/L (22-29); Chloride 100 mmol/L (98-107); Creatinine Clr Calc Pharmacy 44.2988; Globulin 3.6 g/dL (1.3-4.6); Glucose 88 mg/dL (65-115); Osmolality Calculated 284 mOsm/kg (285-295); Potassium 3.8 mmol/L (3.5-5.1); Sodium 137 mmol/L (136-145); Total Protein 6.1 g/dL (6.6-8.7)
--- NOTE | 2024-11-15 06:00 | XRR_ITS ---
PROCEDURE INFORMATION: Exam: XR Chest Exam date and time: 11/15/2024 6:03 AM Age: 84 years old Clinical indication: Condition or disease; Prior surgery; Surgery date: 6+ months; Surgery type: Breast reduction; F/u RT pneumothorax; Additional info: Follow up chest tube improvement TECHNIQUE: Imaging protocol: Radiologic exam of the chest. Views: 1 view. COMPARISON: CR (CHEST, ) 11/14/2024 7:35 AM FINDINGS: Tubes, catheters and devices: Stable right chest tube position. Lungs: Patchy opacities of the lung bases are similar to the comparison. Pleural spaces: Bilateral pleural effusions without interval change. No radiographic visible pneumothorax. Heart/Mediastinum: Enlarged cardiomediastinal contour is unchanged. Bones/joints: Unremarkable. XR/XR chest 1V portable [id number] IMPRESSION: No significant changes.
[2024-11-15] MEDS: piperacillin-tazobactam 3.375 GM in sodium chloride 0.9% (plus) 50 ML IV ×3 (06:44→21:26)
[2024-11-15] MEDS: HYDROmorphone tab 2 MG TABLET PO ×2 (07:28→20:23)
--- NOTE | 2024-11-15 14:14 | P.PN_ITS ---
Subjective 2 Subjective: the patient was seen in the morning, doing well. on 2L NC, not in distress and feels stable. Vitals/I&O/Wt Last Vital Signs Temp 97.7 F 11/15/24 12:00 Pulse 68 11/15/24 13:58 Resp 16 11/15/24 13:58 BP 117/56 11/15/24 12:00 Pulse Ox 95 11/15/24 13:58 O2 Del Method Nasal Cannula 11/15/24 13:58 O2 Flow Rate 2 11/15/24 13:58 FiO2 21 11/09/24 19:52 11/14/24 11/15/24 11/15/24 22:59 06:59 14:59 Intake Total 410 / 1310 400 / 1710 420 / 420 Output Total 914 / 914 0 / 914 30 / Balance -504 / 396 400 / 796 390 / 390 Weight last 48 hrs Weight 63.412 kg Weight 65.453 kg Physical Exam 2 Narrative: General: Alert oriented x3, patient seen on 2-3 L NC and not in distress with right-sided chest tube in place and attached to the water seal HEENT: Normocephalic, atraumatic, EOMI, breathing comfortably, on 2 L nasal without any distress Cardio: Regular rate rhythm, normal S1-S2, no murmurs rubs gallops, JVD normal Respiratory: Good bilateral air entry with mild crepitus of the subcutaneous air that is improving near the right-sided chest tube insertion with negative suction, adequate air entry and chest expansion. No wheezes or crepitations heard GI: Abdomen soft, nontender, nondistended, normoactive bowel sounds present all 4 quadrants, Neuro: No focal neurological deficit Behavior: Appropriate and cooperative Extremities: mild trace edema, no calf tenderness, both LLE normal in size and comparable Skin: grossly unremarkable Data 11/15/24 02:36 11/15/24 02:36 Micro: Microbiology 11/09/24 20:51 Blood Culture - Final Blood NO GROWTH AFTER 5 DAYS A&P Assessment and plan 1. Sepsis: 2. Recurrent pleural effusion on right: 3. Insomnia: 4. Gout: 5. Hypertension: 6. Hemochromatosis: 7. Syncope and collapse: 8. Sinus bradycardia: 9. Anemia: Plan: -complicated parapneumonic effusion s/p drainage and chest tube: zosyn and vanc to continue as per pharmacy review, And blood cultures 1 bottle showed staph epi likely contaminant Blood culture and Gram stain of pleural sample till date negative (Pleural fluid analysis likely infective considering high LDH ratio, turbid appearance, high WBCs and lower normal pH of 6.50). - Patient s/p right-sided chest tube insertion currently followed by the interventional machinery cleaner on dornase shelley lytic therapy started on 11/11/2024 - keep chest tube at negative suction -[id number] as per pulm and to follow cxr everyday - as per the ID verbal discussion to send for TB quantiferon, histoplasma ab in blood and urine ag and cocciodio ab serology, mycobacterial culture/smear and fungal culture on the BF pleural collected and to follow - cont duonebs - one dose of lasix 20mg oral, CXR has mild congestion - pt currently stable and if no growth, and stable as per inter pulm the for discharge on augmentin and levolfoxacin as per ID and to follow ID as outpatient -Sinus wei: - exercise MIBI to evaluate bradycardia when chest tube is out and patient cleared from a pulmonary perspective. 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 iron supplements daily Gout: - resume home medications, allopurinol for gout insomnia: melatonin and amitriptyline for insomnia HTN: continue home medication triemterene/HCT for BP control, hold if the systolic is less than 100mmg Hemachromatosis: - Monitor CBC for hemochromatosis VTE: - VTE: Heparin twice daily - diet: Cardiac diet PDMP PDMP Reviewed: Not Reviewed Attestations 2 Medical Necessity Statement*: Keya Sharma's hospital stay will require greater than 2 midnights for management of right-sided likely complicated parapneumonic effusion status post chest tube insertion and on dornase shelley lytic therapy. Time Spent in Patient Care: 16 - 35 minutes (>than 50% of time sp ent in counselling and/or direct pt care on unit) . Critical Care Time: The high probability of a clinically significant, sudden or life threatening deterioration, as referenced in this documentation, required my full and direct attention, intervention and personal management. The critical care time shown is in addition to time spent performing any reported separately billable procedures and includes the following: [x] Data and vital sign review and interpretation [x ] Patient assessment, examination and intervention [x] Medication orders and management [x] Patient/Family updates as able [x] Care Coordination and Documentation. Critical Care Time (min): 35 Other Attestations: Patient condition has been discussed at length with the patient/family, I have independently reviewed the chart labs imaging and diagnostics and EKG. the goals of care and code status with the patient/family/NOK/legal cash application representative, and documented accordingly. The patient/family has been informed about the current condition and further plan of care. Agreed with the plan of care and understood without any language barrier. This documentation was created by [employer] implementation project coordinator software. Every effort was made to ensure accuracy of implementation project coordinator. Any obvious errors or omissions should be clarified with the author of the document. Coding Level of Care Code Critical Care >/= 30 minutes Diagnoses Sepsis A41.9 Recurrent pleural effusion on right J90 Insomnia G47.00 Gout M10.9 Hypertension I10 Hemochromatosis E83.119 Syncope and collapse R55 Sinus bradycardia R00.1 Anemia D64.9
[2024-11-15] MEDS: magnesium sulfate premix 2 GM/50 ML PIGGYBACK IV (15:06)
[2024-11-15] MEDS: MELATONIN 3 MG TABLET PO (20:17)
[2024-11-16] VITALS (15 sets, daily range): BP systolic 122–163; BP diastolic 57–91; PULSE 52–97; RESP 17–28; TEMP 36.5–37.4; O2SAT 90–95
[2024-11-16 03:17] LABS: Hematocrit 28.3 % (36-47); Hemoglobin 8.90 g/dL (11.27-16.99); Mean Corpuscular HGB Conc 31.4 g/dL (30-55); Mean Corpuscular Hemoglobin 30.8 pg (27-33); Mean Corpuscular Volume 97.9 fl (85-98); Nucleated Red Blood Cells % 0 %; Platelet Count 531 10^3/cmm (157-399); Red Blood Count 2.89 10^6/uL (3.85-5.65); White Blood Count 7.41 10^3/uL (3.29-11.43)
[2024-11-16 03:40] LABS: Alanine Aminotransferase 15 U/L (0-33); Albumin Level 2.6 g/dL (3.5-5.2); Alkaline Phosphatase 74 U/L (35-105); Anion Gap 12.2 (5-19); Aspartate Amino Transferase 15 U/L (0-32); Blood Urea Nitrogen 13 mg/dL (8-23); Calcium 9.2 mg/dL (8.5-10.5); Carbon Dioxide 30 mmol/L (22-29); Chloride 101 mmol/L (98-107); Creatinine Clr Calc Pharmacy 44.2988; Globulin 3.8 g/dL (1.3-4.6); Glucose 98 mg/dL (65-115); Magnesium 2.3 mg/dL (1.7-2.3); Osmolality Calculated 288 mOsm/kg (285-295); Potassium 4.2 mmol/L (3.5-5.1); Sodium 139 mmol/L (136-145); Total Protein 6.4 g/dL (6.6-8.7)
--- NOTE | 2024-11-16 06:00 | XR_ITS ---
WS: [id number] Exam: XR chest 1V portable [id number] Date/Time of Exam: 11/16/2024 7:21 AM Reason For Exam: post chest tube follow up Comparison 11/15/2024. Bibasal infiltrate and atelectasis unchanged. RIGHT basal pleural effusion noted. Right-sided chest tube unchanged in position. No pneumothorax. Mild cardiac enlargement. The mediastinum is normal in contour. Bony structures are intact. XR/XR chest 1V portable [id number] IMPRESSION: 1. Chest radiograph unchanged since the latest study.
[2024-11-16] MEDS: piperacillin-tazobactam 3.375 GM in sodium chloride 0.9% (plus) 50 ML IV ×3 (06:18→21:24)
--- NOTE | 2024-11-16 08:08 | P.PN_ITS ---
Subjective 2 Subjective: the patient was seen in the morning, doing well. on 2L NC, not in distress and feels stable. however was asking about her chest tube if its going to be taken out today, informed the interventional pulm and to follow. Medications: Medication Review Details: the patient was seen in the morning, on chest tube on the right side with negative suction pressure on NC with 2-3L no acute concerns overnight and the patient is doing well awaited interventional plan Vitals/I&O/Wt Last Vital Signs Temp 97.9 F 11/16/24 03:43 Pulse 52 L 11/16/24 06:49 Resp 18 11/16/24 06:49 BP 129/61 11/16/24 06:49 Pulse Ox 94 11/16/24 06:49 O2 Del Method Nasal Cannula 11/16/24 03:43 O2 Flow Rate 2 11/16/24 02:15 FiO2 21 11/09/24 19:52 11/15/24 11/16/24 11/16/24 22:59 06:59 14:59 Intake Total 440 / 860 420.000 / 1280.000 Output Total 0 / 30 Balance 440 / 830 420.000 / 1250.000 Weight last 48 hrs Weight 62.55 kg Weight 63.412 kg Physical Exam 2 Narrative: General: Alert oriented x3, patient seen on 2-3 L NC and not in distress with right-sided chest tube in place and attached to the water seal HEENT: Normocephalic, atraumatic, EOMI, breathing comfortably, on 2 L nasal without any distress Cardio: Regular rate rhythm, normal S1-S2, no murmurs rubs gallops, JVD normal Respiratory: Good bilateral air entry and mild decrease air entry at the right basal side, chest tube insertion with negative suction, adequate air entry and chest expansion. No wheezes or crepitations heard GI: Abdomen soft, nontender, nondistended, normoactive bowel sounds present all 4 quadrants, Neuro: No focal neurological deficit Behavior: Appropriate and cooperative Extremities: mild trace edema, no calf tenderness, both LLE normal in size and comparable Skin: grossly unremarkable Data 11/16/24 02:20 11/16/24 02:20 Micro: Microbiology 11/10/24 16:30 Gram Stain - Final Other Source Anaerobic Culture - Preliminary Tissue Culture - Final A&P Assessment and plan 1. Sepsis: 2. Recurrent pleural effusion on right: 3. Insomnia: 4. Gout: 5. Hypertension: 6. Hemochromatosis: 7. Syncope and collapse: 8. Sinus bradycardia: 9. Anemia: Plan: -complicated parapneumonic effusion s/p drainage and chest tube: zosyn and vanc to continue as per pharmacy review, And blood cultures 1 bottle showed staph epi likely contaminant Blood culture and Gram stain of pleural sample till date negative (Pleural fluid analysis likely infective considering high LDH ratio, turbid appearance, high WBCs and lower normal pH of 6.50). - Patient s/p right-sided chest tube insertion currently followed by the interventional manager planning on dornase shelley lytic therapy started on 11/11/2024 - keep chest tube at negative suction -[id number] as per pulm and to follow cxr everyday - as per the ID verbal discussion to send for TB quantiferon, histoplasma ab in blood and urine ag and cocciodio ab serology, mycobacterial culture/smear and fungal culture on the BF pleural collected and to follow still pending - interven pulm onboard and to follow the plan - cont duonebs - one dose of lasix 20mg oral, CXR has mild congestion - pt currently stable and if no growth, and stable as per inter pulm the for discharge on augmentin and levolfoxacin as per ID and to follow ID as outpatient -Sinus wei: - exercise MIBI to evaluate bradycardia when chest tube is out and patient cleared from a pulmonary perspective. 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 iron supplements daily Gout: - continue home medications, allopurinol for gout insomnia: melatonin and amitriptyline for insomnia HTN: continue home medication triemterene/HCT for BP control, hold if the systolic is less than 100mmg Hemachromatosis: - Monitor CBC for hemochromatosis VTE: - VTE: Heparin twice daily - diet: Cardiac diet PDMP PDMP Reviewed: Not Reviewed Attestations 2 Medical Necessity Statement*: Keya Sharma's hospital stay will require greater than 2 midnights for management of right-sided likely complicated parapneumonic effusion status post chest tube insertion received dornase shelley lytic therapy. Time Spent in Patient Care: 16 - 35 minutes (>than 50% of time sp ent in counselling and/or direct pt care on unit) . The high probability of a clinically significant, sudden or life threatening deterioration, as referenced in this documentation, required my full and direct attention, intervention and personal management. The critical care time shown is in addition to time spent performing any reported separately billable procedures and includes the following: [x] Data and vital sign review and interpretation [x ] Patient assessment, examination and intervention [x] Medication orders and management [x] Patient/Family updates as able [x] Care Coordination and Documentation. Critical Care Time: 35 Other Attestations: Patient condition has been discussed at length with the patient/family, I have independently reviewed the chart labs imaging and diagnostics and EKG. the goals of care and code status with the patient/family/NOK/legal automotive leasing sales representative, and documented accordingly. The patient/family has been informed about the current condition and further plan of care. Agreed with the plan of care and understood without any language barrier. This documentation was created by [employer] bi application developer software. Every effort was made to ensure accuracy of bi application developer. Any obvious errors or omissions should be clarified with the author of the document. Coding Level of Care Code Critical Care >/= 30 minutes Diagnoses Sepsis A41.9 Recurrent pleural effusion on right J90 Insomnia G47.00 Gout M10.9 Hypertension I10 Hemochromatosis E83.119 Syncope and collapse R55 Sinus bradycardia R00.1 Anemia D64.9
--- NOTE | 2024-11-16 10:09 | P.PN_ITS ---
<Statement entered by Alejandro Cardenas M.D - 11/19/24 11:44> Patient was cared for in conjunction with an advanced practice practitioner.? I reviewed the chart and all pertinent data including imaging, telemetry, and laboratory results.? I discussed the patient in detail with the advanced practice practitioner.? Please see their note for complete progress note, testing results and agreed upon plan of care for the patient. Subjective 2 Subjective: She is feeling well this morning, no chest pain or shortness of breath. No symptomatic bradycardia, heart rate 52 bpm during sleep. Vitals/I&O/Wt Last Vital Signs Temp 97.7 F 11/16/24 08:00 Pulse 63 11/16/24 09:00 Resp 18 11/16/24 09:00 BP 143/66 11/16/24 08:00 Pulse Ox 95 11/16/24 09:00 O2 Del Method Nasal Cannula 11/16/24 09:00 O2 Flow Rate 2 11/16/24 09:00 FiO2 21 11/09/24 19:52 11/15/24 11/16/24 11/16/24 22:59 06:59 14:59 Intake Total 440 / 1280.000 420.000 / 1280.000 120 / 120 Output Total 0 / 30 Balance 440 / 1250.000 420.000 / 1250.000 120 / 120 Weight last 48 hrs Weight 137 lb 14.4 oz Weight 139 lb 12.8 oz Physical Exam 2 Const: COMMON NORMALS: no acute distress and patient oriented x3 GENERAL APPEARANCE: cooperative and comfortable ORIENTATION/CONSCIOUSNESS: Yes awake, Yes oriented to person, Yes oriented to place and Yes oriented to time Chest: COMMONS NORMALS: normal inspection of the chest and normal palpation of entire chest wall CHEST: Yes Symmetrical chest wall rise Resp: COMMON NORMALS: normal respiratory effort, No retractions, No use of accessory muscles and clear to auscultation bilaterally EFFORT & INSPECTION: Yes symmetric chest movement AUSCULTATION: clear to auscultation bilaterally Cardio: COMMON NORMALS: regular rate, regular rhythm, S1 normal heart sound present, S2 normal heart sound present, No gallops present (Cardio), No clicks present (Cardio), No murmurs present (Cardio) and No rub (Cardio) RATE: r egular rate RHYTHM: regular rhythm HEART SOUNDS: S1 normal heart sound present and S2 normal heart sound present PERIPHERAL PULSES: radial pulses present Extremity: COMMON NORMALS: no pedal edema Neuro: COMMON NORMALS: patient oriented x3 and moves all extremities S ENSORIUM/ORIENTATION: Yes oriented to person, Yes oriented to place and Yes oriented to time Data 11/16/24 02:20 11/16/24 02:20 Micro: Microbiology 11/10/24 16:30 Gram Stain - Final Other Source Anaerobic Culture - Preliminary Tissue Culture - Final A&P Assessment and plan 1. Sinus bradycardia: 2. Hypertension: 3. Anemia: 4. Recurrent pleural effusion on right: Plan: She is stable from a cardiovascular perspective. Chest tube is still in place. She is in isolation, ruling out TB. PDMP PDMP Reviewed: Not Reviewed Attestations 2 Medical Necessity Statement*: per hospitalist Coding Level of Care Code Acute Code for [facility] Diagnoses Sinus bradycardia R00.1 Hypertension I10 Anemia D64.9 Recurrent pleural effusion on right J90
--- NOTE | 2024-11-16 12:30 | P.PCN_ITS ---
Procedure/Consent Time out: Time Out Performed: Yes Consent: Consent for Procedure: Consent obtained from patient Procedure Narrative: Procedure Note: Intrapleural Lytic Therapy Indication: Right residual empyema with loculated pleural effusion. ICD-10 Codes: J90 ? Pleural effusion, not elsewhere classified (if used for residual effusion documentation) Procedure Performed: Intrapleural fibrinolytic therapy via existing chest tube. CPT Code: 35212 ? Instillation, via chest tube/catheter, agent for fibrinolysis (e.g., alteplase [tPA]) including subsequent drainage management. Description of Procedure: The patient has a right [address] in [address] for drainage of empyema. Using sterile technique, a mixture of alteplase 10 mg and dornase shelley 5 mg was instilled into the pleural space via the chest tube, followed by a 50 mL saline flush. The chest tube was clamped for 1 hour dwell time, then re-opened to suction for continued drainage. Outcome: The procedure was well tolerated without immediate complications. The chest tube remains to suction for ongoing management. Plan: Continue chest tube drainage and monitor pleural output, respiratory status, and clinical response. Ermias Robertson MD, FACP, FASN Interventional Pulmonary Acute Procedures Epistaxis Control: Time out performed: Yes
[2024-11-16] MEDS: ALTEPLASE INTRAPLEUR (14:25)
[2024-11-16] MEDS: WATER FOR INJECTION STERILE INTRAPLEUR ×2 (14:25)
[2024-11-16] MEDS: DORNASE ALFA INTRAPLEUR (14:25)
[2024-11-16] MEDS: HYDROmorphone tab 2 MG TABLET PO ×2 (15:05→21:26)
--- NOTE | 2024-11-16 15:06 | PC.SOCIAL ---
IMM updated IMM dated and initialed, Copy placed in chart and copy given to patient
--- NOTE | 2024-11-16 15:54 | PC.NURSE ---
Chest tube unclamped after one hour of dwell time and hooked up to suction. Patient tolerated well.
--- NOTE | 2024-11-16 19:54 | P.PN_ITS ---
Subjective 2 Subjective: No acute events overnight. Patient reported that she continues to improve. Her shortness of breath significantly improved and her cough is improving as well. She is participating in physical and occupational therapy. Patient remained afebrile. Vitals/I&O/Wt Last Vital Signs Temp 97.8 F 11/16/24 19:50 Pulse 67 11/16/24 19:50 Resp 23 H 11/16/24 19:50 BP 131/57 11/16/24 19:50 Pulse Ox 93 11/16/24 19:50 O2 Del Method Nasal Cannula 11/16/24 19:50 O2 Flow Rate 2 11/16/24 16:00 FiO2 21 11/09/24 19:52 11/16/24 11/16/24 11/16/24 06:59 14:59 22:59 Intake Total 420.000 / 1280.000 290 / 290 640 / 930 Output Total 0 / 30 62 / 62 Balance 420.000 / 1250.000 290 / 290 578 / 868 Weight last 48 hrs Weight 137 lb 14.4 oz Weight 139 lb 12.8 oz Physical Exam 2 Narrative: General: Alert, oriented, and in no acute distress. Appears well-nourished and well-developed. Head: Normocephalic and atraumatic. Eyes: Pupils equal, round, and reactive to light. Extraocular movements intact. No scleral icterus or conjunctival injection. Ears/Nose/Throat: Nasal mucosa is moist without discharge. Oropharynx is clear without erythema or exudate. Dentition intact. No lesions or thrush. Neck: Supple. Cardiovascular: Regular rate and rhythm. Normal S1 and S2. No murmurs, gallops, or rubs. No peripheral edema. Respiratory: Good air entry bilaterally with rhonchi at the bases of the right lung. Chest tube in place with serosanguineous output. No evidence of air leak Abdomen: Soft, non-tender, non-distended. Normoactive bowel sounds. Extremities: No cyanosis, clubbing, or edema. Full range of motion. Peripheral pulses palpable and symmetric. Skin: Warm and dry. No rashes, lesions, or ulcers. Neurology: Alert and oriented to person, place, and time. Grossly intact with no focal deficit. Psychiatry: Good mood with Appropriate affect. Data 11/16/24 02:20 08/25/25 02:20 Micro: Microbiology 11/10/24 16:30 Gram Stain - Final Other Source Anaerobic Culture - Preliminary Tissue Culture - Final A&P Assessment and plan 1. Empyema of right pleural space: 2. Recurrent pleural effusion on right: 3. Acute pneumonia: Plan: Plan: Patient continues to decline transfer for thoracic surgery and possible decortication in [place] or [facility]. She prefers to remain here for conservative management, including chest tube drainage, intrapleural therapy as needed, and antibiotics, and does not wish to undergo major surgery. Fortunately, she appears to be responding to the current regimen. However, I explained the long-term risk of incomplete re-expansion and potential restrictive physiology. Microbiology from the pleural fluid continues to be with no growth. Pleural histopathology came back consistent with marked acute inflammation consistent with recent empyema. Plan: * I will give a full dose of tpa/dornase today. * Broad-spectrum antibiotics per hospitalist and ID teams. * Aggressive pain control to prevent splinting. * PT/OT with ambulation every 2?3 hours while awake. * Incentive spirometry and flutter valve use. * Aggressive nutritional support. * Maintain chest tube to suction at ?20 cm H2O. * Please obtain CT chest with IV contrast tomorrow to assess response to drainage and intrapleural lytic therapy. Champ Robertson MD, FACP, VANESSA Interventional Pulmonary PDMP PDMP Reviewed: Not Reviewed Attestations 2 Medical Necessity Statement*: Patient continues to require chest tube with suction for empyema drainage Coding Level of Care Code Acute Code for Chg Fwd Diagnoses Empyema of right pleural space J86.9 Recurrent pleural effusion on right J90 Acute pneumonia J18.9 Time Spent (min) 45
[2024-11-16] MEDS: MELATONIN 3 MG TABLET PO (21:25)
[2024-11-17] VITALS (13 sets, daily range): BP systolic 99–140; BP diastolic 52–83; PULSE 60–88; RESP 16–31; TEMP 36.6–36.9; O2SAT 89–97
[2024-11-17] MEDS: HYDROmorphone 0.5 MG/0.5 ML INJ IVP (02:29)
[2024-11-17 04:34] LABS: Hematocrit 29.3 % (36-47); Hemoglobin 9.20 g/dL (11.27-16.99); Mean Corpuscular HGB Conc 31.4 g/dL (30-55); Mean Corpuscular Hemoglobin 30.8 pg (27-33); Mean Corpuscular Volume 98.0 fl (85-98); Nucleated Red Blood Cells % 0 %; Platelet Count 455 10^3/cmm (157-399); Red Blood Count 2.99 10^6/uL (3.85-5.65); White Blood Count 6.48 10^3/uL (3.29-11.43)
[2024-11-17 04:56] LABS: Alanine Aminotransferase 12 U/L (0-33); Albumin Level 2.5 g/dL (3.5-5.2); Alkaline Phosphatase 70 U/L (35-105); Anion Gap 11.1 (5-19); Aspartate Amino Transferase 15 U/L (0-32); Blood Urea Nitrogen 10 mg/dL (8-23); Calcium 9.2 mg/dL (8.5-10.5); Carbon Dioxide 27 mmol/L (22-29); Chloride 105 mmol/L (98-107); Creatinine Clr Calc Pharmacy 44.1464; Globulin 3.5 g/dL (1.3-4.6); Glucose 95 mg/dL (65-115); Osmolality Calculated 287 mOsm/kg (285-295); Potassium 4.1 mmol/L (3.5-5.1); Sodium 139 mmol/L (136-145); Total Protein 6.0 g/dL (6.6-8.7)
[2024-11-17] MEDS: piperacillin-tazobactam 3.375 GM in sodium chloride 0.9% (plus) 50 ML IV ×3 (06:33→23:28)
--- NOTE | 2024-11-17 07:00 | XR_ITS ---
WS: [id number] Exam: XR chest 1V portable [id number] Date/Time of Exam: 11/17/2024 7:05 AM Reason For Exam: post chest tube insertion improvement to follow Comparison 11/16/2024. Bibasal infiltrates and atelectasis unchanged. RIGHT basal pleural effusion stable in appearance. A right-sided thoracostomy tube is unchanged in location. No pneumothorax. Mild cardiac enlargement. The mediastinum is normal in contour. Bony structures are intact. XR/XR chest 1V portable [id number] IMPRESSION: 1. Chest radiograph showing hardly any change since the last study.
--- NOTE | 2024-11-17 07:00 | CT_ITS ---
WS: [id number] CT CHEST TECHNIQUE: Noncontrast CT of the chest with coronal and sagittal reformatted images. CLINICAL INFORMATION: post chest tube and fibrinolytic therapy for evaluation COMPARISON: 11/11/2024 DLP: 228.[address] scans at [facility] use at least one of these dose optimization techniques: automated exposure control; mA and/or kV adjustment per patient size (includes targeted exams where dose is matched to clinical indication); or iterative reconstruction. FINDINGS: Status post thoracoscopy and chest tube placement since 11/10/2024. Previously described empyema has been evacuated. Chest tube is stable in appearance. Interval improvement in aeration of the RIGHT lower lobe with residual consolidation in the RIGHT lower lobe with air bronchograms. Subpulmonic cavity/ pneumothorax demonstrates improvement with decreased septations and adhesions when compared to previous. Small amount of residual fluid. Surrounding pleural thickening. Stable pleural fluid along the major minor fissures. Small LEFT pleural effusion has increased compared to previous. Compressive atelectasis LEFT lower lobe. Chronic emphysematous changes. Upper lungs are well aerated. Aortic and coronary calcification. Stable hepatic cysts. Adrenal glands are normal. Moderate thoracic kyphosis. CT/CT chest wo con [id number] IMPRESSION: 1. RIGHT chest tube is stable in appearance with subpulmonic pneumothorax whic h appears stable. Improved septations and adhesions in the subpulmonic cavity c ompared to previous. Small amount of residual RIGHT pleural fluid and debris. 2. Improved aeration in the RIGHT lower lobe with persistent consolidation and air bronchograms. 3. Small LEFT pleural effusion has increased in size with compressive atelecta sis LEFT lower lobe. 4. No other significant interval changes.
--- NOTE | 2024-11-17 08:27 | PM.PN ---
Subjective Subjective: No acute events overnight. Patient reported that she continues to improve and followed by interventional pulm for further management. chest tube for right sided complicated parapneumonic effusion underwent CT chest and is better in comparison to the previous one Vitals/I&O/Wt Last Vital Signs Temp 98.1 F 11/17/24 08:00 Pulse 64 11/17/24 08:00 Resp 19 H 11/17/24 08:00 BP 122/52 11/17/24 08:00 Pulse Ox 89 L 11/17/24 08:00 O2 Del Method Room Air 11/17/24 07:32 O2 Flow Rate 2 11/16/24 16:00 FiO2 21 11/09/24 19:52 11/16/24 11/17/24 11/17/24 22:59 06:59 14:59 Intake Total 675 / 965 400 / 1365 Output Total 62 / 130 / 192 Balance 613 / 903 270 / 1173 Weight last 48 hrs Weight 62.959 kg Weight 62.55 kg Physical Exam Narrative: General: Alert oriented x3, patient seen on 2 L NC sometimes off as well without any desaturation and not in distress with right-sided chest tube in place and attached to the water seal, HEENT: Normocephalic, atraumatic, EOMI, breathing comfortably, on 2 L nasal without any distress Cardio: Regular rate rhythm, normal S1-S2, no murmurs rubs gallops, JVD normal Respiratory: Good bilateral air entry and mild decrease air entry at the right basal side, chest tube insertion with negative suction, adequate air entry and chest expansion. No wheezes or crepitations heard GI: Abdomen soft, nontender, nondistended, normoactive bowel sounds present all 4 quadrants, Neuro: No focal neurological deficit Behavior: Appropriate and cooperative Extremities: mild trace edema, no calf tenderness, both LLE normal in size and comparable Skin: grossly unremarkable Data 11/17/24 03:43 11/17/24 03:43 Micro: Microbiology 11/10/24 16:30 Gram Stain - Final Other Source Anaerobic Culture - Preliminary Tissue Culture - Final A&P Assessment and plan 1. Sepsis: 2. Recurrent pleural effusion on right: 3. Insomnia: 4. Gout: 5. Hypertension: 6. Hemochromatosis: 7. Syncope and collapse: 8. Sinus bradycardia: 9. Anemia: Plan: -complicated parapneumonic effusion s/p drainage and chest tube: zosyn and vanc to continue as per pharmacy review, And blood cultures 1 bottle showed staph epi likely contaminant Blood culture and Gram stain of pleural sample till date negative (Pleural fluid analysis likely infective considering high LDH ratio, turbid appearance, high WBCs and lower normal pH of 6.50). - Patient s/p right-sided chest tube insertion currently followed by the interventional dairy quality assurance officer on dornase shelley lytic therapy started on 11/11/2024 - path report showed infective etiology of the pleural effusion - keep chest tube at negative suction -[id number] as per pulm and to follow cxr everyday - as per the ID verbal discussion to send for TB quantiferon, histoplasma ab in blood and urine ag and cocciodio ab serology, mycobacterial culture/smear and fungal culture on the BF pleural collected and to follow still pending - interven pulm onboard and to follow the plan - cont duonebs - CT chest with contrast as per int pulm: and showed improvement relative to the previous study ( doing well and for detailed report refer to the study) - incective spirometry and ambulation - pt currently stable and if no growth, and stable as per inter pulm the for discharge on augmentin and levolfoxacin as per ID and to follow ID as outpatient -Sinus wei: - exercise MIBI to evaluate bradycardia when chest tube is out and patient cleared from a pulmonary perspective. 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 iron supplements daily Gout: - continue home medications, allopurinol for gout insomnia: melatonin and amitriptyline for insomnia HTN: continue home medication triemterene/HCT for BP control, hold if the systolic is less than 100mmg Hemachromatosis: - Monitor CBC for hemochromatosis VTE: - VTE: Heparin twice daily - diet: Cardiac diet PDMP PDMP Reviewed: Not Reviewed Attestations Medical Necessity Statement*: Keya Sharma's hospital stay will require greater than 2 midnights for management of right-sided likely complicated parapneumonic effusion status post chest tube insertion received dornase shelley lytic therapy. Time Spent in Patient Care: 16 - 35 minutes (>than 50% of time spent in counselling and/or direct pt care on unit). Critical Care Time: 16 - 35 minutes (>than 50% of caroline e spent in senior counsel commercial ling and/or direct pt care on unit). The high probabi lity of a clinical ly significant, nova dden or life threa tening deteriorati on, as referenced in this documentat ion, required my f ull and direct att ention, interventi on and personal tatiana carrera. The crit ical care time prakash wn is in addition to time spent perf orming any reporte d separately billa ble procedures and includes the foll owing: [x] Data an d vital sign revie w and interpretati on [x] Patient ass essment, examinati on and interventio n [x] Medication o rders and manageme nt [x] Patient/Fam romero updates as abl e [x] Care Coordin ation and Document ation. Critical Care Time (min): 35 Other Attestations: Patient condition has been discussed at length with the patient/family, I have independently reviewed the chart labs imaging and diagnostics and EKG. the goals of care and code status with the patient/family/NOK/legal manufacturer's service representative, and documented accordingly. The patient/family has been informed about the current condition and further plan of care. Agreed with the plan of care and understood without any language barrier. This documentation was created by [employer] firmware manager software. Every effort was made to ensure accuracy of firmware manager. Any obvious errors or omissions should be clarified with the author of the document. Coding Level of Care Code Critical Care >/= 30 minutes Diagnoses Sepsis A41.9 Recurrent pleural effusion on right J90 Insomnia G47.00 Gout M10.9 Hypertension I10 Hemochromatosis E83.119 Syncope and collapse R55 Sinus bradycardia R00.1 Anemia D64.9
--- NOTE | 2024-11-17 09:17 | P.PN_ITS ---
<Statement entered by Alejandro Cardenas M.D - 11/19/24 12:05> Patient was cared for in conjunction with an advanced practice practitioner.? I reviewed the chart and all pertinent data including imaging, telemetry, and laboratory results.? I discussed the patient in detail with the advanced practice practitioner.? Please see their note for complete progress note, testing results and agreed upon plan of care for the patient. Subjective 2 Subjective: She is doing well overnight. Chest tube remains in place. Vitals/I&O/Wt Last Vital Signs Temp 98.1 F 11/17/24 08:00 Pulse 64 11/17/24 08:00 Resp 19 H 11/17/24 08:00 BP 122/52 11/17/24 08:00 Pulse Ox 89 L 11/17/24 08:00 O2 Del Method Room Air 11/17/24 07:32 O2 Flow Rate 2 11/16/24 16:00 FiO2 21 11/09/24 19:52 11/16/24 11/17/24 11/17/24 22:59 06:59 14:59 Intake Total 675 / 1365 400 / 1365 Output Total 62 / 192 130 / 192 Balance 613 / 1173 270 / 1173 Weight last 48 hrs Weight 138 lb 12.8 oz Weight 137 lb 14.4 oz Physical Exam 2 Const: COMMON NORMALS: no acute distress and patient oriented x3 GENERAL APPEARANCE: cooperative and comfortable ORIENTATION/CONSCIOUSNESS: Yes awake, Yes oriented to person, Yes oriented to place and Yes oriented to time Chest: COMMONS NORMALS: normal inspection of the chest and normal palpation of entire chest wall CHEST: Yes Symmetrical chest wall rise Resp: COMMON NORMALS: normal respiratory effort, No retractions, No use of accessory muscles and clear to auscultation bilaterally EFFORT & INSPECTION: Yes symmetric chest movement AUSCULTATION: clear to auscultation bilaterally Cardio: COMMON NORMALS: regular rate, regular rhythm, S1 normal heart sound present, S2 normal heart sound present, No gallops present (Cardio), No clicks present (Cardio), No murmurs present (Cardio) and No rub (Cardio) RATE: r egular rate RHYTHM: regular rhythm HEART SOUNDS: S1 normal heart sound present and S2 normal heart sound present PERIPHERAL PULSES: radial pulses present Extremity: COMMON NORMALS: no pedal edema Neuro: COMMON NORMALS: patient oriented x3 and moves all extremities S ENSORIUM/ORIENTATION: Yes oriented to person, Yes oriented to place and Yes oriented to time Data 11/17/24 03:43 11/17/24 03:43 Micro: Microbiology 11/10/24 16:30 Gram Stain - Final Other Source Anaerobic Culture - Preliminary Tissue Culture - Final A&P Assessment and plan 1. Hypertension: 2. Anemia: 3. Recurrent pleural effusion on right: Plan: Bradycardia has resolved. Doing well from a cardiac perspective. She is not on any cardiac medications. Recommend event monitor at discharge. We will sign off. Please call with questions or if she becomes bradycardic again. At time of discharge please schedule follow-up in the cardiology clinic in 2 weeks. PDMP PDMP Reviewed: Not Reviewed Attestations 2 Medical Necessity Statement*: Per hospitalist Coding Level of Care Code Acute Code for g Fwd Diagnoses Hypertension I10 Anemia D64.9 Recurrent pleural effusion on right J90
[2024-11-17] MEDS: HYDROmorphone tab 2 MG TABLET PO (20:49)
[2024-11-17] MEDS: MELATONIN 3 MG TABLET PO (20:50)
--- NOTE | 2024-11-17 22:32 | P.PN_ITS ---
Subjective 2 Subjective: No acute events overnight. Patient remained hemodynamic stable. Afebrile. Patient underwent right intrapleural lytic therapy yesterday. She had about 250-300 cc output after the therapy initially the output was bloody serosanguineous but now is becoming more serous. Patient reported improvements in her respiratory status Vitals/I&O/Wt Last Vital Signs Temp 97.9 F 11/17/24 20:00 Pulse 82 11/17/24 22:00 Resp 31 H 11/17/24 20:00 BP 135/83 11/17/24 20:00 Pulse Ox 90 11/17/24 19:59 O2 Del Method Room Air 11/17/24 20:00 O2 Flow Rate 2 11/16/24 16:00 FiO2 21 11/09/24 19:52 11/17/24 11/17/24 11/17/24 06:59 14:59 22:59 Intake Total 400 / 1365 414.167 / 414.167 50 / 464.167 Output Total 130 / 192 50 / 50 70 / 120 Balance 270 / 1173 364.167 / 364.167 -20 / 344.167 Weight last 48 hrs Weight 138 lb 12.8 oz Weight 137 lb 14.4 oz Physical Exam 2 Narrative: General: Alert, oriented, and in no acute distress. Appears well-nourished and well-developed. Head: Normocephalic and atraumatic. Eyes: Pupils equal, round, and reactive to light. Extraocular movements intact. No scleral icterus or conjunctival injection. Ears/Nose/Throat: Nasal mucosa is moist without discharge. Oropharynx is clear without erythema or exudate. Dentition intact. No lesions or thrush. Neck: Supple. Cardiovascular: Regular rate and rhythm. Normal S1 and S2. No murmurs, gallops, or rubs. No peripheral edema. Respiratory: Good air entry bilaterally with rhonchi at the bases of the right lung. Chest tube in place with serosanguineous output. No evidence of air leak Abdomen: Soft, non-tender, non-distended. Normoactive bowel sounds. Extremities: No cyanosis, clubbing, or edema. Full range of motion. Peripheral pulses palpable and symmetric. Skin: Warm and dry. No rashes, lesions, or ulcers. Neurology: Alert and oriented to person, place, and time. Grossly intact with no focal deficit. Psychiatry: Good mood with Appropriate affect. Data 11/17/24 03:43 11/17/24 03:43 Micro: Microbiology 11/07/24 16:30 Mycobacterial Smear - Preliminary Body Fluids - Pleura,Rt Lung 11/07/24 16:30 Fungal Smear - Preliminary Pericardial Fluid 11/10/24 16:30 Gram Stain - Final Other Source Anaerobic Culture - Final Tissue Culture - Final A&P Assessment and plan 1. Empyema of right pleural space: 2. Recurrent pleural effusion on right: 3. Acute pneumonia: Plan: The CT chest from today shows marked improvement in the right pleural effusion, with only minimal residual fluid and no significant loculated collections requiring drainage. Given the favorable response and the bloody changes noted in the chest tube output yesterday, I will hold off on additional intrapleural therapy for now. The patient appears to be nearing complete drainage of the right pleural cavity. The plan is to continue chest tube suction and monitor output over the next 24 hours. The chest tube will be removed once drainage is consistently less than 200 cc. A follow-up chest X-ray should be obtained in the morning, and if the output remains low, I will perform a short clamp trial prior to removal. The patient remains on broad-spectrum antibiotics, with Infectious Diseases actively involved in management and extensive workup. Given her prior failure of initial therapy in [place], I am inclined to support a prolonged antibiotic course per ID recommendations once the chest tube is removed and the regimen is finalized. Ermias Robertson MD, FACP, FASN Interverventional Pulmonary PDMP PDMP Reviewed: Not Reviewed Attestations 2 Medical Necessity Statement*: Patient continues to have chest tube to suction Coding Level of Care Code Acute Code for Chg Fwd Diagnoses Empyema of right pleural space J86.9 Recurrent pleural effusion on right J90 Acute pneumonia J18.9 Time Spent (min) 35
[2024-11-18] VITALS (12 sets, daily range): BP systolic 118–145; BP diastolic 48–71; PULSE 47–69; RESP 16–26; TEMP 36.1–37; O2SAT 90–96
[2024-11-18 03:33] LABS: Hematocrit 31.0 % (36-47); Hemoglobin 9.80 g/dL (11.27-16.99); Mean Corpuscular HGB Conc 31.6 g/dL (30-55); Mean Corpuscular Hemoglobin 31.2 pg (27-33); Mean Corpuscular Volume 98.7 fl (85-98); Nucleated Red Blood Cells % 0 %; Platelet Count 432 10^3/cmm (157-399); Red Blood Count 3.14 10^6/uL (3.85-5.65); White Blood Count 6.79 10^3/uL (3.29-11.43)
[2024-11-18 03:58] LABS: Alanine Aminotransferase 12 U/L (0-33); Albumin Level 2.6 g/dL (3.5-5.2); Alkaline Phosphatase 75 U/L (35-105); Anion Gap 11.3 (5-19); Aspartate Amino Transferase 15 U/L (0-32); Blood Urea Nitrogen 11 mg/dL (8-23); Calcium 9.7 mg/dL (8.5-10.5); Carbon Dioxide 28 mmol/L (22-29); Chloride 105 mmol/L (98-107); Creatinine Clr Calc Pharmacy 38.8748; Globulin 3.9 g/dL (1.3-4.6); Glucose 99 mg/dL (65-115); Osmolality Calculated 289 mOsm/kg (285-295); Potassium 4.3 mmol/L (3.5-5.1); Sodium 140 mmol/L (136-145); Total Protein 6.5 g/dL (6.6-8.7)
--- NOTE | 2024-11-18 06:00 | XRR_ITS ---
PROCEDURE INFORMATION: Exam: XR Chest Exam date and time: 11/18/2024 6:08 AM Age: 84 years old Clinical indication: Device placement; Chest tube; Additional info: Post chest tube follow up of improvement TECHNIQUE: Imaging protocol: Radiologic exam of the chest. Views: 1 view. COMPARISON: CT chest con [id number] 11/17/2024 9:43 AM FINDINGS: Tubes, catheters and devices: Stable right thoracostomy tube. Lungs: Stable bibasilar pulmonary opacities, right greater than left. Pleural spaces: A small subpulmonic right pneumothorax is stable. Heart/Mediastinum: See Vasculature finding. Vasculature: Mild cardiomegaly and uncoiling of the thoracic aorta. Bones/joints: Unremarkable. XR/XR chest 1V portable [id number] IMPRESSION: 1. No significant change. 2. Stable small subpulmonic right pneumothorax.
[2024-11-18] MEDS: piperacillin-tazobactam 3.375 GM in sodium chloride 0.9% (plus) 50 ML IV ×3 (06:22→23:48)
--- NOTE | 2024-11-18 07:46 | ECG_ITS ---
[facility]: 2024-[facility]18 Pat Name: Keya Sharma Department: Room: 105 Gender: Female Mobile Therapist: : 1940 Requested By: Megan Blackburn Order Number: [id number] Fatuma MD: Juan Pepper M.D. Measurements Intervals [place] Rate: 61 P: 245 AL: 157 QRS: 2 QRSD: 96 T: -17 QT: 386 QTc: 389 Interpretive Statements SINUS RHYTHM WITH PREMATURE ATRIAL CONTRACTION POSSIBLE LEFT ATRIAL ENLARGEMENT [-0.1mV P-WAVE IN V1/V2] PROBABLE LATERAL MYOCARDIAL INFARCTION , PROBABLY OLD [35 ms Q WAVE IN I/aVL/V5/V6] T WAVE INVERSION IN THE INFERIOR LEADS, CONSIDER ISCHEMIA Compared to ECG 11/10/2024 09:09:48 NO SIGNIFICANT CHANGE Electronically Signed On 11-18-2024 23:00:34 CDT by Juan Pepper M.D. [email or web address] [id number]
[2024-11-18 11:19] LABS: Histoplasma Antigen (Quant) None Detected; Histoplasma Antigen Interpreta NEGATIVE; Histoplasma Antigen Specimen URINE
--- NOTE | 2024-11-18 15:15 | PC.SOCIAL ---
IMM UPDATED IMM dated and initialed copy given to patient and copy placed in chart.
--- NOTE | 2024-11-18 19:03 | P.PN_ITS ---
Subjective 2 Subjective: No acute events overnight. Patient remained hemodynamically stable. Afebrile. Patient continues to report improvement in her respiratory status. She denied any chest pain or shortness of breath. Chest tube output was about 150 cc over the past 24 hours. It appears to be serous. Vitals/I&O/Wt Last Vital Signs Temp 97.9 F 11/18/24 16:00 Pulse 58 L 11/18/24 16:00 Resp 24 H 11/18/24 16:00 BP 145/67 11/18/24 16:00 Pulse Ox 90 11/18/24 16:00 O2 Del Method Room Air 11/18/24 16:00 O2 Flow Rate 2 11/18/24 14:54 FiO2 21 11/09/24 19:52 11/18/24 11/18/24 11/18/24 06:59 14:59 22:59 Intake Total 325 / 789.167 660 / 660 240 / 900 Output Total 20 / 140 Balance 305 / 649.167 660 / 660 240 / 900 Weight last 48 hrs Weight 136 lb 1.6 oz Weight 138 lb 12.8 oz Physical Exam 2 Narrative: General: Alert, oriented, and in no acute distress. Appears well-nourished and well-developed. Head: Normocephalic and atraumatic. Eyes: Pupils equal, round, and reactive to light. Extraocular movements intact. No scleral icterus or conjunctival injection. Ears/Nose/Throat: Nasal mucosa is moist without discharge. Oropharynx is clear without erythema or exudate. Dentition intact. No lesions or thrush. Neck: Supple. Cardiovascular: Regular rate and rhythm. Normal S1 and S2. No murmurs, gallops, or rubs. No peripheral edema. Respiratory: Good air entry bilaterally with rhonchi at the bases of the right lung. Chest tube in place with serosanguineous output. No evidence of air leak Abdomen: Soft, non-tender, non-distended. Normoactive bowel sounds. Extremities: No cyanosis, clubbing, or edema. Full range of motion. Peripheral pulses palpable and symmetric. Skin: Warm and dry. No rashes, lesions, or ulcers. Neurology: Alert and oriented to person, place, and time. Grossly intact with no focal deficit. Psychiatry: Good mood with Appropriate affect. Data 11/18/24 03:12 11/18/24 03:12 Micro: Microbiology 11/07/24 16:30 Mycobacterial Smear - Preliminary Body Fluids - Pleura,Rt Lung 11/07/24 16:30 Fungal Smear - Preliminary Pericardial Fluid A&P Assessment and plan 1. Empyema of right pleural space: 2. Recurrent pleural effusion on right: 3. Acute pneumonia: Plan: Patient continues to improve clinically. I reviewed the chest x-ray today which looks stable. The drainage appears to be more serous. No evidence of leukocytosis or fever. Patient continues to be on broad-spectrum antibiotics. Will monitor drainage overnight and if it continues to be low we will plan on chest tube clamped in the morning and chest x-ray after that 2 hours and if chest x-ray stays stable I will plan on removing chest tube. We would recommend consulting with infectious disease to help us on oral management of antibiotics. I discussed this plan with the patient and she voiced understanding. Ermias Robertson MD IP PDMP PDMP Reviewed: Not Reviewed Attestations 2 Medical Necessity Statement*: Patient continues to have chest tube to suction Coding Level of Care Code Acute Code for Chg Fwd Diagnoses Empyema of right pleural space J86.9 Recurrent pleural effusion on right J90 Acute pneumonia J18.9
--- NOTE | 2024-11-18 19:37 | P.PN_ITS ---
Subjective 2 Subjective: Patient doing okay today overall but did have some mild nausea and regurgitation without arash vomiting. Feels like something is getting stuck at times. This is happening with both solids and liquids. She has been having bowel movements though not as regularly as usual. Currently feeling okay. Had heart rate into the 40s again this morning for a while. At 1 point per nursing looked to be heart block though was not captured on EKG. I discussed briefly with cardiology who reviewed and feels likely a vasovagal event. That was my suspicion as well with chest tube in place combined with her GI symptoms today. With the recurrent episodes of bradycardia recommendation is for 30-day event monitor at discharge. Dr. Robertson has seen and plan is to clamp chest tube in the morning if output remains low with follow-up chest x-ray and consideration of clamping the tube. Vitals/I&O/Wt Last Vital Signs Temp 97.9 F 11/18/24 16:00 Pulse 55 L 11/18/24 19:31 Resp 16 11/18/24 19:27 BP 145/67 11/18/24 16:00 Pulse Ox 94 11/18/24 19:27 O2 Del Method Nasal Cannula 11/18/24 19:27 O2 Flow Rate 2 11/18/24 19:27 FiO2 21 11/09/24 19:52 11/18/24 11/18/24 11/18/24 06:59 14:59 22:59 Intake Total 325 / 789.167 660 / 660 240 / 900 Output Total 20 / 140 20 / 20 Balance 305 / 649.167 660 / 660 220 / 880 Weight last 48 hrs Weight 61.734 kg Weight 62.959 kg Physical Exam 2 Narrative: Patient is awake and alert. Able to provide history. Mild chronic ill appearance. Regular rhythm at the time of my evaluation. Chest tube is in place, no airleak. Clear anteriorly. Abdomen is soft, nontender. No pitting edema. Data 11/18/24 03:12 11/18/24 03:12 Micro: Microbiology 11/07/24 16:30 Mycobacterial Smear - Preliminary Body Fluids - Pleura,Rt Lung 11/07/24 16:30 Fungal Smear - Preliminary Pericardial Fluid A&P Assessment and plan 1. Recurrent pleural effusion on right: In a patient who became sick while traveling this summer and was initially managed in [place] where she was found to have haemophilus influenza pneumonia. She had chest tube placement then but continued to not do well after return and was ultimately found to have recurrent right pleural effusion. Thus far this hospital stay no organisms have been identified but effusion remains parapneumonic in nature. 2. S/P chest tube placement: 11/10 with pleuroscopy, medical thoracoscopy, pleural biopsy and adhesiolysis by Dr Robertson 3. Sinus bradycardia: Had sinus bradycardia at presentation and appears to have intermittent episodes of vasovagal events as well. May be secondary to GI events today plus or minus impact of chest tube and movement. Asymptomatic currently with the bradycardia though has had syncopal episode already this hospital stay. 4. Syncope and collapse: At a time she was experiencing bradycardia during this hospitalization. CTA of the chest as well as ultrasound of both lower extremities did not reveal any evidence of PE. 5. Sepsis: Diagnosis at admission based on presentation, vital signs and suspected infection with large pleural effusion. From what I can gather this would be Sep1 criteria not SEP3 6. Primary hypertension: Chronically on triamterene/hydrochlorothiazide 7. Hereditary hemochromatosis: Typically gets phlebotomy every few months. Currently anemic I suspect related to iron deficiency from inflammatory changes associated with illness the last couple of months. 8. Other iron deficiency anemia: Suspect related to anemia of chronic inflammation related to recent illnesses based on available information 9. 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 Path report also consistent with infective etiology of the pleural effusion - Patient s/p right-sided chest tube insertion currently followed by the interventional four corner stayer machine operator on dornase shelley lytic therapy started on 11/11/2024 - keep chest tube at negative suction -[id number] as per pulm and to follow cxr everyday >> on 11/18 plan is to clamp tube 11/19 if drainage stable and check cxr after 2 hours - as per the ID verbal discussion during hospital stay studies sent as follows: TB quantiferon (not performed due to unstable sample > requested recollection 8 am), histoplasma ab in blood (pending) and urine ag (negative) and cocciodio ab serology (pending), mycobacterial culture/smear and fungal culture on the BF pleural collected and to follow still pending (there is a specimen from 11/07 pending for mycobacterial and fungal smear and cultures, do not see pending from 11/10, no AFB seen, no fungal elements seen), MTB PCR is pending from 816 as well - interven pulm onboard and to follow the plan - cont duonebs - CT chest with contrast as per int pulm: and showed improvement relative to the previous study (doing well and for detailed report refer to the study) - incentive spirometry and ambulation - When patient is stable from interventional pulmonology standpoint for discharge, with chest tube removed, plan to transition to oral augmentin and levolfoxacin as per ID recommendations and and plan for followup with ID as outpatient; ID is not available for daily inpatient management at this time Sinus wei: - 30 day event monitor upon discharge with further plans pending results of this study 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 iron supplements daily Gout: - continue home medications, allopurinol for gout insomnia: - melatonin and amitriptyline for insomnia HTN: - home medication triamterene/HCT for BP control, hold if the systolic is less than 100mmg Hemachromatosis: - Monitor CBC for need for phlebotomy, currently anemic VTE: Heparin twice daily Diet: Cardiac diet GI Prophylaxis: change to oral h2b Antibiotics: vanc and zoysn, with plan to change to augmentin and levaquin at dc unless otherwise determined by cultures Pending studies: See Blue highlights above Telemetry: Ordered secondary to intermittent bradycardia Culp: not currently indicated Line(s): peripheral IVs Disposition plan: Home with outpatient follow up to infectious disease, interventional pulmonology, primary care provider Dr. Garner. Anticipate in a few days with oral antibiotics Code Status: Full Code Supportive care otherwise Findings, concerns and plans were discussed with patient and they were given an opportunity to ask questions PDMP PDMP Reviewed: Not Reviewed Attestations 2 Medical Necessity Statement*: Requires ongoing inpatient stay for continued management of chest tube status post medical thoracoscopy in the setting of recurrent right pleural effusion felt to be infectious etiology in nature. Remains on IV antibiotics Coding Level of Care Code 32462 High Time for a total of 50 minutes, includes reviewing past or interval history, examining/interviewing patient, placing orders, discussing plan of care with staff and documenting encounter Diagnoses Recurrent pleural effusion on right J90 S/P chest tube placement Z93.8 Sinus bradycardia R00.1 Syncope and collapse R55 Sepsis A41.9 Primary hypertension I10 Hypertension type: primary hypertension Hereditary hemochromatosis E83.110 Hemochromatosis type: hereditary Other iron deficiency anemia D50.8 Anemia type: iron deficiency Iron deficiency anemia type: other iron deficiency Idiopathic chronic gout of multiple sites without tophus [id number] Chronicity: chronic Gout etiology: idiopathic Gout site: multiple sites 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
[2024-11-18] MEDS: MELATONIN 3 MG TABLET PO (20:20)
[2024-11-18] MEDS: HYDROmorphone tab 2 MG TABLET PO (20:20)
[2024-11-19] VITALS (10 sets, daily range): BP systolic 106–138; BP diastolic 48–75; PULSE 42–70; RESP 16–26; TEMP 36.5–36.9; O2SAT 87–95
[2024-11-19] MEDS: sennosides-docusate Tablet 1 TAB PO (09:21)
[2024-11-19] MEDS: piperacillin-tazobactam 3.375 GM in sodium chloride 0.9% (plus) 50 ML IV (09:22)
--- NOTE | 2024-11-19 11:00 | XR_ITS ---
WS: [id number] Exam: XR chest 1V portable [id number] Date/Time of Exam: 11/19/2024 10:51 AM Reason For Exam: planning for a chest tube removal post chest tube clamping. Comparison 11/18/2024. Bibasal infiltrates show little change since the last exam. RIGHT basal chest tube is unchanged in position. No pneumothorax is seen. Mild cardiac enlargement unchanged. The mediastinum is normal in contour for technique. Bony structures are intact. XR/XR chest 1V portable [id number] IMPRESSION: 1. Chest x-ray showing no significant change since the last study. No pneumotho rax identified.
[2024-11-19 11:08] LABS: Creatinine Clr Calc Pharmacy 38.4543
--- NOTE | 2024-11-19 11:36 | PM.PN ---
Subjective Subjective: No acute events overnight. Patient reported that she continues to improve and followed by interventional pulm for further management. chest tube for right sided complicated parapneumonic effusion which has improved significantly, patient shortness of breath and overall general sense condition has improved Medications: Medication Review Details: the patient was seen in the morning, on chest tube on the right side with negative suction pressure on NC with 2-3L no acute concerns overnight and the patient is doing well awaited interventional plan Vitals/I&O/Wt Last Vital Signs Temp 97.8 F 11/19/24 07:55 Pulse 62 11/19/24 08:00 Resp 18 11/19/24 08:00 BP 130/66 11/19/24 07:55 Pulse Ox 95 11/19/24 08:00 O2 Del Method Nasal Cannula 11/19/24 08:00 O2 Flow Rate 2 11/19/24 08:00 FiO2 21 11/09/24 19:52 11/18/24 11/19/24 11/19/24 22:59 06:59 14:59 Intake Total 290 / 950 300 / 1250 Output Total 20 / 20 300 / 320 15 / 15 Balance 270 / 930 0 / 930 -15 / -15 Weight last 48 hrs Weight 60.328 kg Weight 61.734 kg Physical Exam Narrative: General: Alert oriented x3, patient seen on 2 L NC sometimes off as well without any desaturation and not in distress with right-sided chest tube in place and attached to the water seal, HEENT: Normocephalic, atraumatic, EOMI, breathing comfortably, on 2 L nasal without any distress Cardio: Regular rate rhythm, normal S1-S2, no murmurs rubs gallops, JVD normal Respiratory: Good bilateral air entry and mild decrease air entry at the right basal side, and some crackles on the left side lower zone inspiratory in nature, chest tube in place with negative suction, adequate air entry and chest expansion. No wheezes or crepitations heard GI: Abdomen soft, nontender, nondistended, normoactive bowel sounds present all 4 quadrants, Neuro: No focal neurological deficit Behavior: Appropriate and cooperative Extremities: mild trace edema, no calf tenderness, both LLE normal in size and comparable Skin: grossly unremarkable Data 11/18/24 03:12 11/19/24 10:26 Micro: Microbiology 11/07/24 16:30 M. tuberculosis Complex (PCR) - Final Other Source MTB Complex and Rifampin Resistance - Final A&P Assessment and plan 1. Recurrent pleural effusion on right: In brief as per the previous retrospective notes and history : in a patient who became sick while traveling this summer and was initially managed in [place] where she was found to have haemophilus influenza pneumonia. She had chest tube placement then but continued to not do well after return and was ultimately found to have recurrent right pleural effusion. Thus far this hospital stay no organisms have been identified but effusion remains parapneumonic in nature. 2. S/P chest tube placement: 11/10 with pleuroscopy, medical thoracoscopy, pleural biopsy and adhesiolysis by Dr Robertson 3. Sinus bradycardia: 4. Syncope and collapse: 5. Sepsis: 6. Primary hypertension: 7. Hereditary hemochromatosis: 8. Other iron deficiency anemia: 9. Idiopathic chronic gout of multiple sites without tophus: 10. Insomnia due to medical condition: Plan: Complicated parapneumonic effusion s/p drainage and chest tube: - zosyn and vanc to continue as per pharmacy review in inpatient setting - blood cultures 1 bottle showed staph epi likely contaminant, otherwise no growth final - Culture and Gram stain of pleural sample tissue culture NGF, anaerobic cultures NGF - Pleural fluid analysis likely infective considering high LDH ratio, turbid appearance, high WBCs and lower normal pH of 6.50. Path report also consistent with infective etiology of the pleural effusion - Patient s/p right-sided chest tube insertion currently followed by the interventional tank car reconditioner on dornase shelley lytic therapy started on 11/11/2024 - keep chest tube at negative suction -[id number] as per pulm and to follow cxr everyday >> on 11/18 plan is to clamp tube 11/19 if drainage stable and check cxr after 2 hours - as per the ID verbal discussion during hospital stay studies sent as follows: TB quantiferon (not performed due to unstable sample > requested recollection 11/19 am), histoplasma ab in blood (pending) and urine ag (negative) and cocciodio ab serology (pending), mycobacterial culture/smear and fungal culture on the BF pleural collected and to follow still pending (there is a specimen from 11/07 pending for mycobacterial and fungal smear and cultures, do not see pending from 11/10, no AFB seen, no fungal elements seen), MTB PCR is pending from 816 as well - interven pulm onboard and to follow the plan - cont duonebs - CT chest with contrast as per int pulm: and showed improvement relative to the previous study (doing well and for detailed report refer to the study) - incentive spirometry and ambulation - When patient is stable from interventional pulmonology standpoint for discharge, with chest tube removed, plan to transition to oral augmentin and levolfoxacin as per ID recommendations and and plan for followup with ID as outpatient; ID is not available for daily inpatient management at this time Sinus wei: - 30 day event monitor upon discharge with further plans pending results of this study 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, stop iron supplementations since also having underlying hemachromatosis Gout: - continue home medications, allopurinol for gout insomnia: - melatonin and amitriptyline for insomnia HTN: - home medication triamterene/HCT for BP control, however medicine not available, - on HCT 25mg to continue and monitor BP Hemachromatosis: - Monitor CBC for need for phlebotomy, currently anemic - avoid iron supplements VTE: Heparin twice daily Diet: Cardiac diet GI Prophylaxis: change to oral h2b Antibiotics: vanc and zoysn, with plan to change to augmentin and levaquin at dc unless otherwise determined by cultures Pending studies: See Blue highlights above Telemetry: Ordered secondary to intermittent bradycardia Culp: not currently indicated Line(s): peripheral IVs Disposition plan: Home with outpatient follow up to infectious disease, interventional pulmonology, primary care provider Dr. Garner. Anticipate in a few days with oral antibiotics Code Status: Full Code Supportive care otherwise Findings, concerns and plans were discussed with patient and they were given an opportunity to ask questions PDMP PDMP Reviewed: Not Reviewed Attestations Medical Necessity Statement*: Keya Sharma's hospital stay will require greater than 2 midnights for management of right-sided likely complicated parapneumonic effusion status post chest tube insertion received dornase shelley lytic therapy and further evaluation of removing the chest tube Time Spent in Patient Care: 16 - 35 minutes (>than 50% of time spent in counselling and/or direct pt care on unit). Critical Care Time: The high probability of a clinically significant, sudden or life threatening deterioration, as referenced in this documentation, required my full and direct attention, intervention and personal management. The critical care time shown is in addition to time spent performing any reported separately billable procedures and includes the following: [x] Data and vital sign review and interpretation [x] Patient assessment, examination and intervention [x] Medication orders and management [x] Patient/Family updates as able [x] Care Coordination and Documentation. Critical Care Time (min): 35 Other Attestations: Patient condition has been discussed at length with the patient/family, I have independently reviewed the chart labs imaging and diagnostics and EKG. the goals of care and code status with the patient/family/NOK/legal quality control representative, and documented accordingly. The patient/family has been informed about the current condition and further plan of care. Agreed with the plan of care and understood without any language barrier. This documentation was created by [employer] manager of organizational development software. Every effort was made to ensure accuracy of manager of organizational development. Any obvious errors or omissions should be clarified with the author of the document. Coding Level of Care Code Critical Care >/= 30 minutes Diagnoses Recurrent pleural effusion on right J90 S/P chest tube placement Z93.8 Sinus bradycardia R00.1 Syncope and collapse R55 Sepsis A41.9 Primary hypertension I10 Hypertension type: primary hypertension Hereditary hemochromatosis E83.110 Hemochromatosis type: hereditary Other iron deficiency anemia D50.8 Anemia type: iron deficiency Iron deficiency anemia type: other iron deficiency Idiopathic chronic gout of multiple sites without tophus [id number] Gout site: multiple sites Gout etiology: idiopathic Chronicity: chronic 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
--- NOTE | 2024-11-19 13:34 | P.DS_ITS ---
Discharge Providers Date of Admission: 11/09/24 17:26 Date of Discharge: November 19, 2024 Attending Provider at Admission: Donnie Arnold MD Attending Provider at Discharge: Donnie Arnold MD Primary Care Provider: Griselda Garner MD Diagnoses at Discharge Discharge Diagnosis 1. Recurrent pleural effusion on right: 2. S/P chest tube placement: 3. Sinus bradycardia: 4. Syncope and collapse: 5. Sepsis: 6. Primary hypertension: 7. Hereditary hemochromatosis: 8. Other iron deficiency anemia: 9. Idiopathic chronic gout of multiple sites without tophus: 10. Insomnia due to medical condition: Reason for Visit Reason for Visit: empyema CSU 105 Brief History: As per the previous notes and the patient : Keya Sharma is a 84 year old female referred by Dr. Garner for evaluation of a recurrent pleural effusion. Her past medical history is significant for hereditary hemochromatosis, for which she undergoes phlebotomy every three months, hypertension managed with triamterene/hydrochlorothiazide, gout managed with allopurinol, and osteopenia. Her surgical history includes an appendectomy for a ruptured appendix, colon resection, and hernia repair. She reports that she traveled to [place] from October 14 to October 25, 2024, during which she developed what she believed was a viral illness. Shortly thereafter, she went on a cruise and experienced progressive shortness of breath, cough, and wheezing. On her way home, paramedics were called due to worsening symptoms, and she was admitted to a hospital in [place] for seven days. During that admission, she was diagnosed with Haemophilus influenzae pneumonia. An attempt at thoracentesis was unsuccessful, and a chest tube was subsequently placed with intrapleural lytic therapy, remaining in place for approximately four days. She noted some improvement in breathing during her hospitalization. The patient describes herself as previously very active, engaging in activities such as climbing waterfalls, but since her illness she feels her health has plateaued. She continues to experience shortness of breath, weakness, and a nonproductive cough. She was unable to see her primary care physician until November 04, at which time Dr. Garner urgently referred her for further evaluation. A CT chest performed on November 05, 2024, demonstrated a large right lower thoracic fluid collection measuring 10 ? 13.7 ? 15.9 cm, thought to represent an exudative empyema without significant wall thickening or air foci. The collection exerts mass effect on the IVC, lung, and mediastinal structures, with compressive atelectasis of the right lower lobe. A right paratracheal lymph node measuring 1.7 cm was also noted, which may be reactive or neoplastic. She is a former smoker, having quit in 1983 after an 18-year, 1.5 [id number] history. Current medications include albuterol as needed, budesonide two puffs twice daily, triamterene/hydrochlorothiazide, and allopurinol. She does not use any respiratory devices, denies latex allergy, and is up to date on her vaccinations. Today she reports ongoing dyspnea, fatigue, and cough, with no new complaints. Of note the patient had history of colon cancer already treated and in remission status for surgical resection. And also having history of cancers in the family. Hospital Course Hospital Course Patient admitted as a case of parapneumonic effusion. Underwent chest tube insertion later on after drainage pleural fluid analysis was sent. It was complicated parapneumonic effusion with fibrosis and septations that needed dornase alpha lytic therapy and it was provided based upon her condition. The patient was being seen by the interventional sales marketing manager as on board and continue to improve during her stay. Blood cultures did not grow anything however there was possible contaminant. She remained afebrile during her course. Pleural fluid analysis was more of suggested with infectious in etiology, cytopathology report also showed no dysplastic cells. ID was consulted and a verbal plan upon discharge was made with Augmentin and levofloxacin to complete approximately 14 to 21 days in total. The patient chest tube was taken out and dressing was applied. The patient was informed about her dressing care and postop referrals. All the concerns and queries were addressed without any language barrier and the patient agreed with the plan of care. Physical Exam Narrative: General: Alert oriented x3, patient seen on 2 L NC sometimes off as well without any desaturation and not in distress right-sided chest tube removed and dressing applied HEENT: Normocephalic, atraumatic, EOMI, breathing comfortably, on 2 L nasal without any distress Cardio: Regular rate rhythm, normal S1-S2, no murmurs rubs gallops, JVD normal Respiratory: Good bilateral air entry and mild decrease air entry at the right basal side, mild left-sided crackles however no shortness of breath no distress. GI: Abdomen soft, nontender, nondistended, normoactive bowel sounds present all 4 quadrants, Neuro: No focal neurological deficit Behavior: Appropriate and cooperative Extremities: mild trace edema, no calf tenderness, both LLE normal in size and comparable Skin: grossly unremarkable Discharge Data Studies Completed and Pending Completed Studies During Hospitalization Category Date Time Status CT chest wo con [id number] Routine Cat Scan 11/11/24 06:[address] chest wo con [id number] Routine Cat Scan 11/17/24 07:00 Completed CTA chest [CT angio chest PE protcl 16073] Stat Cat Scan 11/10/24 08:06 Completed CXRP [XR chest 1V portable [id number]] Routine Exams 11/12/24 06:00 Completed CXRP [XR chest 1V portable [id number]] Routine Exams 11/13/24 10:58 Completed XR chest 1V 18954 Routine Exams 11/12/24 06:00 Completed XR chest 1V portable [id number] Routine Exams 11/10/24 17:10 Completed XR chest 1V portable [id number] Routine Exams 11/14/24 06:00 Completed XR chest 1V portable [id number] Routine Exams 11/15/24 06:00 Completed XR chest 1V portable [id number] Routine Exams 11/16/24 06:00 Completed XR chest 1V portable [id number] Routine Exams 11/17/24 07:00 Completed XR chest 1V portable 10004 Routine Exams 11/18/24 06:00 Completed XR chest 1V portable [id number] Routine Exams 11/19/24 11:00 Completed Cytology [PTH] Routine Pth 11/10/24 16:02 Completed Pathology: Surgical [PTH] Routine Pth 11/10/24 16:55 [place] [id number] Routine Ultrasound 11/10/24 07:58 Completed CV. echo complete* [id number] Stat Ultrasound 11/10/24 07:52 Completed Pending at discharge Category Date Time Status XR chest 1V portable [id number] Routine Exams 11/20/24 06:00 Ordered CBC Auto Diff [Complete Blood Count w/Auto] AM LABS Lab 11/20/24 04:00 Ordered CMP [Comprehensive Metabolic Panel] AM LABS Lab 11/20/24 04:00 Ordered Coccidioides AB Immunodiffusio Routine Lab 11/14/24 22:40 Received Fungal Culture not HR/SK/BL Routine Lab 11/14/24 16:01 Results Histoplasma Antibody Immunodif Stat Lab 11/14/24 22:40 Received Mycobacteria, Culture w/Fluor Routine Lab 11/14/24 16:02 Results Jqpgxjndipe-SY-Hbrm Plus DAILY Lab 11/19/24 10:26 Received TB [MTB Complex Rifampin Non Sputu] Routine Lab 11/14/24 15:48 Results Vancomycin Trough Timed Lab 11/20/24 22:30 Ordered Radiology Impressions Chest CTA 11/10/24 08:06 Impression: 1. Negative for pulmonary embolic disease. 2. No change in probable loculated effusion or empyema in the right lower thorax. 3. No change in right pleural effusion. Chest CT 11/17/24 07:00 IMPRESSION: 1. RIGHT chest tube is stable in appearance with subpulmonic pneumothorax which appears stable. Improved septations and adhesions in the subpulmonic cavity compared to previous. Small amount of residual RIGHT pleural fluid and debris. 2. Improved aeration in the RIGHT lower lobe with persistent consolidation and air bronchograms. 3. Small LEFT pleural effusion has increased in size with compressive atelectasis LEFT lower lobe. 4. No other significant interval changes. Chest X-Ray 11/19/24 11:00 IMPRESSION: 1. Chest x-ray showing no significant change since the last study. No pneumothorax identified. Laboratory Results WBC 6.79 10^3/uL (3.29-11.43) 11/18/24 03:12 RBC 3.14 10^6/uL (3.85-5.65) L 11/18/24 03:12 Hgb 9.80 g/dL (11.27-16.99) L 11/18/24 03:12 Hct 31.0 % (36-47) L 11/18/24 03:12 MCV 98.7 fl (85-98) H 11/18/24 03:12 MCH 31.2 pg (27-33) 11/18/24 03:12 MCHC 31.6 g/dL (30-55) 11/18/24 03:12 RDW 15.0 % (12.1-15.1) 11/18/24 03:12 Plt Count 432 10^3/cmm (157-399) H 11/18/24 03:12 MPV 8.7 fL (7.4-10.4) 11/18/24 03:12 Neut % (Auto) 60.0 % 11/18/24 03:12 Lymph % (Auto) 24.7 % 11/18/24 03:12 [place] % (Auto) 10.9 % 11/18/24 03:12 Eos % (Auto) 3.2 % 11/18/24 03:12 Baso % (Auto) 0.9 % 11/18/24 03:12 Neut # (Auto) 4.07 10^3/uL (1.8-7.7) 11/18/24 03:12 Lymph # (Auto) 1.7 10^3/uL (0.8-4.8) 11/18/24 03:12 [place] # (Auto) 0.7 10^3/uL (0.2-0.9) 11/18/24 03:12 Eos # (Auto) 0.2 10^3/uL (0.0-0.8) 11/18/24 03:12 Baso # (Auto) 0.1 10^3/uL (0.0-0.1) 11/18/24 03:12 Nucleated RBC % (auto) 0 % 11/18/24 03:12 Total Counted Not Reportable 11/10/24 16:30 Nucleated RBCs # 0.0 /100WBC 11/18/24 03:12 PT 14.60 SECONDS (12.1-14.9) 11/10/24 03:33 INR 1.06 (0.8-1.2) 11/10/24 03:33 Sodium 140 mmol/L (136-145) 11/18/24 03:12 Potassium 4.3 mmol/L (3.5-5.1) 11/18/24 03:12 Chloride 105 mmol/L (98-107) 11/18/24 03:12 Carbon Dioxide 28 mmol/L (22-29) 11/18/24 03:12 Anion Gap 11.3 (5-19) 11/18/24 03:12 BUN 11 mg/dL (8-23) 11/18/24 03:12 Creatinine 0.9 mg/dL (0.5-0.9) 11/19/24 10:26 GFR Calculation Not Reportable 11/19/24 10:26 Glucose 99 mg/dL (65-115) 11/18/24 03:12 Calculated Osmolality 289 mOsm/kg (285-295) 11/18/24 03:12 Lactic Acid 1.9 mmol/L (0.5-2.2) 11/09/24 20:49 Calcium 9.7 mg/dL (8.5-10.5) 11/18/24 03:12 Phosphorus 3.5 mg/dL (2.5-4.5) 11/10/24 03:33 Magnesium 2.3 mg/dL (1.7-2.3) 11/16/24 02:20 Iron 23 ug/dL (37-145) L 11/13/24 04:21 TIBC 121 mcg/dl 11/13/24 04:21 % Saturation 19.0 % (20-50) L 11/13/24 04:21 Unsat Iron Binding 98 ug/dL (112-347) L 11/13/24 04:21 Ferritin 261 ng/mL (15-150) H 11/13/24 04:21 Total Bilirubin 0.3 mg/dL (0.15-1.2) 11/18/24 03:12 AST 15 U/L (0-32) 11/18/24 03:12 ALT 12 U/L (0-33) 11/18/24 03:12 Alkaline Phosphatase 75 U/L (35-105) 11/18/24 03:12 Lactate Dehydrogenase 162 U/L (135-214) 11/11/24 07:45 Troponin T Baseline 20 ng/L (0-10) H 11/10/24 07:58 Troponin T 120 Minute 18.87 ng/L (0-10) H 11/10/24 10:29 Delta Troponin T -1.13 ABS# (0-10) L 11/10/24 10:29 Total Protein 6.5 g/dL (6.6-8.7) L 11/18/24 03:12 Albumin 2.6 g/dL (3.5-5.2) L 11/18/24 03:12 Globulin 3.9 g/dL (1.3-4.6) 11/18/24 03:12 Vitamin B12 500 pg/mL (232-1245) 11/13/24 04:21 Folate 15.9 ng/mL (4.8-37.3) 11/11/24 07:45 TSH 4.18 uIU/mL (0.27-4.20) 11/10/24 03:33 Urine Color Yellow (Yellow) 11/09/24 21:05 Urine Appearance Clear (CLEAR) 11/09/24 21:05 Urine pH 6.5 (5-7) 11/09/24 21:05 Ur Specific [place] 1.024 (1.005-1.030) 11/09/24 21:05 Urine Protein Trace (Negative) A 11/09/24 21:05 Urine Glucose (UA) Negative (Normal) 11/09/24 21:05 Urine Ketones Negative (Negative) 11/09/24 21:05 Urine Blood Negative (Negative) 11/09/24 21:05 Urine Nitrate Negative (Negative) 11/09/24 21:05 Urine Bilirubin Negative (Negative) 11/09/24 21:05 Urine Urobilinogen 1.0 mg/dL (Negative) 11/09/24 21:05 Ur Leukocyte Esterase Negative (Negative) 11/09/24 21:05 Amorphous Sediment Not Reportable 11/09/24 21:05 Fld Crystal Laterality Right pleural fluid 11/10/24 16:30 Pleural Color Azeb (Pale Yellow) H 11/10/24 16:30 Pleural Appearance Turbid (CLEAR) 11/10/24 16:30 Pleural pH 6.50 (6.5-7.5) 11/10/24 16:30 Pleural WBC 754.000 /uL (0-1000) 11/10/24 16:30 Pleural RBC 3.000 10^3/uL 11/10/24 16:30 Pleural Mononuc # Auto 0.239 10^3/uL 11/10/24 16:30 Pleural Other Cells Not Reportable 11/10/24 16:30 Pleural Polynuclear % 68 % 11/10/24 16:30 Pleural Polynuclear # 0.515 10^3/uL 11/10/24 16:30 Pleural Mononuclear % 32 % 11/10/24 16:30 Pleural Other Cells Rt Right lung 11/10/24 16:30 Pleural Total Protein 4.7 g/dL 11/10/24 16:30 Pleural Albumin 2.1 g/dL 11/10/24 16:30 Pleural LDH 1037 U/L 11/10/24 16:30 Pleural Glucose 66.0 mg/dL 11/10/24 16:30 Pleural Cholesterol 145 mg/dL 11/10/24 16:30 Pleural Triglycerides 81 mg/dL 11/10/24 16:30 Pleur Adenosine Deamin 33.4 U/L (<9.2) H 11/10/24 16:30 Vancomycin Trough 9.3 ug/mL (10-15) L 11/19/24 10:26 Histoplasma Antigen Urine 11/14/24 16:40 Histoplasma Ag (Qnt) None detected ng/mL 11/14/24 16:40 Histoplasma Ag Interp Negative 11/14/24 16:40 TB (QFT) Gold In Tube TNP 11/14/24 02:20 TB Test (QFT) Nil Not Reportable 11/14/24 02:20 TB Test (QFT) Mitogen Not Reportable 11/14/24 02:20 TB Test Mitogen - Nil Not Reportable 11/14/24 02:20 TB Test TB -Nil Not Reportable 11/14/24 02:20 Path Cons w/Slide Yes 11/10/24 16:30 Pathology Message Yes 11/10/24 16:30 Blood Type A Positive 11/10/24 11:50 Rho(D) Type Rh positive 11/10/24 11:50 Antibody Screen Negative 11/10/24 11:50 Vitals Last Vital Signs Temp 97.8 F 11/19/24 07:55 Pulse 69 11/19/24 11:52 Resp 25 H 11/19/24 11:52 BP 106/48 11/19/24 11:52 Pulse Ox 90 11/19/24 11:52 O2 Del Method Nasal Cannula 11/19/24 08:00 O2 Flow Rate 2 11/19/24 08:00 FiO2 21 11/09/24 19:52 Discharge Plan Discharge Patient Disposition: Home Condition: Stable Prescriptions: New acetaminophen 325 mg Tablet 650 mg PO Q6H PRN (Reason: Mild/Mod Pain Or Temp >/= 101) 10 Days Qty: 30 0RF amoxicillin-pot clavulanate [Augmentin] 500-125 mg tablet 1 tab PO TID 14 Days Qty: 42 0RF levofloxacin 750 mg tablet 750 mg PO DAILY 14 Days Qty: 14 0RF Continued Collagen 1500 Plus C 500 mg-800 mcg- 50 mg capsule 1 cap PO DAILY melatonin 5 mg capsule 5 mg PO BEDTIME PRN (Reason: Insomnia) albuterol sulfate 90 mcg/actuation HFA aerosol inhaler 2 puff inhalation Q6H PRN (Reason: Shortness Of Breath Or Wheezing) budesonide-formoterol [Breyna] 160-4.5 mcg/actuation HFA aerosol inhaler 2 inh inhalation BID zinc gluconate 30 mg tablet 30 mg PO DAILY magnesium oxide 250 mg magnesium tablet 250 mg PO DAILY calcium carbonate-vitamin D3 [Calcium 600 with Vitamin D3] 600 mg-12.5 mcg (500 unit) capsule 2 cap PO DAILY amitriptyline 10 mg tablet 10 mg PO DAILY Rx Instructions: Take 1 tablet by mouth once daily triamterene-hydrochlorothiazid 37.5-25 mg tablet 1 tab PO DAILY Rx Instructions: Take 1 tablet by mouth once daily allopurinol 300 mg tablet 300 mg PO DAILY Rx Instructions: Take 1 tablet by mouth once daily Discontinued ibuprofen 800 mg tablet 800 mg PO Q8H PRN (Reason: pain) Qty: 90 0RF Employee Development Specialist OK for DC: Infectious Disease and Pulmonary Discharge Order = DC NOW: Discharge Order (Routine); Ordered 11/19/24 Ordered By: Donnie Arnold Referrals: Ermias Robertson MD [Physician, Interventional Pulmonology] - 4-7 days Iris Salomon MD [Hospitalist, Hospitalist] - 7-10 days Referral Note: FU post drainage of complicated parapneumonic effusion Griselda Garner MD [Primary Care Provider, Family Practice] - 11/24/24 1:20 pm Discharge Diet: Advance as tolerated and Usual diet Discharge Activity: Resume usual activity and Increase activity as tolerated Patient Instructions: Acute Wound Care (DC), Opioid Safety, Post Anesthesia Care, Patient Portal & Swapna Instructions Activity Restrictions/Additional Instructions: The patient has been instructed about post removal of the chest tube, the dressing change how to take shower and to follow-up with the sales marketing manager, infectious disease and primary care postdischarge. In case of any concerns, shortness of breath and any further clinical deterioration to come back to the ER Proceed with activity as instructed Patient's Health Concerns: All questions and concerns addressed without any language barrier, The risk and benefits of the management of plan also discussed and the patient agreed with it Discharge Attestations Time Spent in Discharge Care*: greater than 30 min Specific Discharge Activities: educating patient, educating and/or supporting family/caregiver, discussing with pcp/other providers, discussing with case packer and sealer/social workers/dc planners, documenting/other paperwork and evaluating patient/reviewing data Status at Discharge: Cognitive status at discharge: cognitively intact , Behavioral status at discharge: cooperative , Functional status at discharge: independent ambulation , Overall status at discharge: patient is back to baseline Quality Metrics Clinical Quality Measures [ No reported AMI, CVA or VTE this stay] Coding Level of Care Code Critical Care >/= 30 minutes Diagnoses Recurrent pleural effusion on right J90 S/P chest tube placement Z93.8 Sinus bradycardia R00.1 Syncope and collapse R55 Sepsis A41.9 Primary hypertension I10 Hypertension type: primary hypertension Hereditary hemochromatosis E83.110 Hemochromatosis type: hereditary Other iron deficiency anemia D50.8 Anemia type: iron deficiency Iron deficiency anemia type: other iron deficiency Idiopathic chronic gout of multiple sites without tophus [id number] Chronicity: chronic Gout etiology: idiopathic Gout site: multiple sites 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
--- NOTE | 2024-11-19 14:31 | P.PN_ITS ---
Subjective 2 Subjective: No acute changes in the past 24 hours. Patient continues to report improvement in pulmonary status. Chest tube with minimal drainage. Vitals/I&O/Wt Last Vital Signs Temp 97.8 F 11/19/24 07:55 Pulse 70 11/19/24 14:00 Resp 18 11/19/24 14:00 BP 106/48 11/19/24 11:52 Pulse Ox 87 L 11/19/24 14:26 O2 Del Method Room Air 11/19/24 14:00 O2 Flow Rate 4 11/19/24 14:26 FiO2 21 11/09/24 19:52 11/18/24 11/19/24 11/19/24 22:59 06:59 14:59 Intake Total 290 / 950 300 / 1250 890 / 890 Output Total 300 / 320 15 Balance 270 / 930 0 / 930 875 / 875 Weight last 48 hrs Weight 133 lb Weight 136 lb 1.6 oz Physical Exam 2 Narrative: General: Alert, oriented, and in no acute distress. Appears well-nourished and well-developed. Head: Normocephalic and atraumatic. Eyes: Pupils equal, round, and reactive to light. Extraocular movements intact. No scleral icterus or conjunctival injection. Ears/Nose/Throat: Nasal mucosa is moist without discharge. Oropharynx is clear without erythema or exudate. Dentition intact. No lesions or thrush. Neck: Supple. Cardiovascular: Regular rate and rhythm. Normal S1 and S2. No murmurs, gallops, or rubs. No peripheral edema. Respiratory: Good air entry bilaterally with rhonchi at the bases of the right lung. Chest tube in place with serosanguineous output. No evidence of air leak Abdomen: Soft, non-tender, non-distended. Normoactive bowel sounds. Extremities: No cyanosis, clubbing, or edema. Full range of motion. Peripheral pulses palpable and symmetric. Skin: Warm and dry. No rashes, lesions, or ulcers. Neurology: Alert and oriented to person, place, and time. Grossly intact with no focal deficit. Psychiatry: Good mood with Appropriate affect. Data 11/18/24 03:12 11/19/24 10:26 Micro: Microbiology 11/07/24 16:30 M. tuberculosis Complex (PCR) - Final Other Source MTB Complex and Rifampin Resistance - Final A&P Assessment and plan 1. Empyema of right pleural space: 2. Recurrent pleural effusion on right: Plan: Today?s chest X-ray showed near-complete resolution of the right pleural effusion with good pleural apposition and lung expansion. The patient remains hemodynamically stable, afebrile, and without significant leukocytosis. Chest tube output over the past 24 hours was minimal (<100 cc). The tube was clamped for 4 hours, followed by a repeat chest X-ray that demonstrated stability without pneumothorax. The chest tube was then successfully removed. From an interventional pulmonology standpoint, the patient is cleared for discharge on oral antibiotics as per the ID team. Follow-up is arranged in the IP clinic in 2 weeks with a non-contrast CT chest. Ermias Robertson MD, FACP, VANESSA Interventional Pulmonary PDMP PDMP Reviewed: Not Reviewed Attestations 2 Medical Necessity Statement*: Patient will be discharged today Coding Level of Care Code Acute Code for Chg Fwd Diagnoses Empyema of right pleural space J86.9 Recurrent pleural effusion on right J90 Time Spent (min) 40
--- NOTE | 2024-11-19 18:12 | PC.NURSE ---
Discharge Note Patient discharged to home via private vehicle accompanied by friend. Discharge instructions reviewed with patient and/or retail customer service representative. Mobile pharmacy medications and/or prescriptions provided. Belongings/home medications returned. Educated pt on new meds dosing,timing and possible side effects and duration. Pt got her oxygen delivered and meds to bed delivered to her room. Educated pt on using oxygen at home. Personal belongings gave back to pt. Set up follow up appointments for her.
[2024-11-21 17:35] LABS: Coccidioides IgG Antibody NEGATIVE; Coccidioides IgM Antibody NEGATIVE; Histoplasma capsulatum H Ab NEGATIVE; Histoplasma capsulatum M Ab NEGATIVE
== END 2024-11-19 18:16 | disposition home or self-care (01) | DRG 853 ==
PROVIDERS: Hospitalist; Internal Medicine; Admitting Provider Student in an Organized Health Care Education/Training Program; PCP Family Medicine; Visit Provider Student in an Organized Health Care Education/Training Program
PROC: 0BBN4ZX Excision of Right Pleura, Percutaneous Endoscopic Approach, Diagnostic (ICD-10-PCS; principal; 2024-11-10 13:00)
PROC: 0BBN4ZX Excision of Right Pleura, Percutaneous Endoscopic Approach, Diagnostic (ICD-10-PCS; CPT 32551; 2024-11-10 13:00)
DX: A41.9 Sepsis, unspecified organism (principal); J86.9 Pyothorax without fistula; J91.8 Pleural effusion in other conditions classified elsewhere; J94.8 Other specified pleural conditions; R55 Syncope and collapse; I10 Essential (primary) hypertension; E83.110 Hereditary hemochromatosis; M10.9 Gout, unspecified; G47.01 Insomnia due to medical condition; R00.1 Bradycardia, unspecified; Z87.891 Personal history of nicotine dependence; Z85.038 Personal history of other malignant neoplasm of large intestine
CPT/HCPCS: 36415; 71045; 71250; 71275; 80048; 80053; 80202; 80503; 81003; 82042; 82465; 82565; 82607; 82728; 82746; 82945; 83540; 83550; 83605; 83615; 83735; 83986; 84100; 84155; 84157; 84311; 84443; 84478; 84484; 85025; 85610; 86480; 86635; 86698; 86850; 86900; 87015; 87040; 87070; 87075; 87077; 87102; 87116; 87150; 87176; 87186; 87205; 87206; 87385; 87801; 88112; 88305; 89050; 93005; 93306; 93970; 94640; 94760; 96372; 97110; 97116; 97163; 97165; 97530; 99205; G0379; J1171; J1644; J1938; J2250; J2543; J2704; J2997; J3010; J3373; J3475; J3490; J7030; J7050; J7639; J9999

== ENCOUNTER → 2024-11-25 08:08 | Outpatient (BNVA) | payer MEDICARE, SELFPAY | PROVIDERS: PCP Family Medicine; Visit Provider Internal Medicine | DX: J86.9 Pyothorax without fistula (principal); J90 Pleural effusion, not elsewhere classified; Z99.81 Dependence on supplemental oxygen; Z87.891 Personal history of nicotine dependence; J18.9 Pneumonia, unspecified organism | CPT/HCPCS: 71046; 99214; Q3014 ==

== ENCOUNTER → 2024-11-30 10:15 | Outpatient (BNVA) | payer MEDICARE, SELFPAY | PROVIDERS: PCP Family Medicine; Visit Provider Family Medicine | DX: R09.02 Hypoxemia (principal); J18.9 Pneumonia, unspecified organism; J90 Pleural effusion, not elsewhere classified | CPT/HCPCS: 80053; 85025 ==

== ENCOUNTER 2024-12-02 09:01 | Oncology outpatient (recurring) (ONCR) | payer MEDICARE, SELFPAY ==
--- NOTE | 2024-12-02 09:04 | CT_ITS ---
WS: [id number] CT CHEST HIGH RESOLUTION, NONCONTRAST. HISTORY: Follow-up pleural effusion. Cough and wheezing. Technique: High-resolution chest CT is performed in inspiration, expiration, supine and prone positioning. All CT scans at [facility] use at least one of these dose optimization techniques: automated exposure control; mA and/or kV adjustment per patient size (includes targeted exams where dose is matched to clinical indication); or iterative reconstruction. DLP: 211.84 mGy COMPARISON: 11/17/2024, 11/10/2024 Findings: Since the prior examination the right-sided chest tube has been removed. There is a continued complex pleural effusion with central air at the RIGHT lower thorax measuring 6.9 x 4.2 cm. There is adjacent pleural thickening. Bandlike pleural thickening measures 8.6 mm. Pleural thickening extends along the RIGHT fissures. Additional areas of stranding and consolidation in the RIGHT lower lobe. Previously described small LEFT pleural effusion has resolved. Mild atherosclerosis aorta. Normal size pulmonary artery. Heart size is normal. There are a few very tiny retrocrural lymph nodes on the RIGHT. No mediastinal or hilar adenopathy identified. No honeycombing. There is minimal peripheral interstitial thickening. Early changes of bronchiectasis are suspected developing in the RIGHT lower lobe. The areas of atelectasis do not improve with prone positioning. No endobronchial lesions. Gallbladder is slightly contracted. Stable hepatic cysts. No adrenal mass. Advanced degenerative disc disease and endplate changes in the midthoracic spine are similar to the prior study from 11/17/2024. CT/CT chest w/o HI-Res(Pulm Only) Impression: 1. Since removal of the right-sided chest tube the pleural effusion at the RIG HT lung base is recurrent. There is a small pleural effusion with central air a nd adjacent pleural thickening. Empyema should be considered. 2. No residual pneumothorax. 3. RIGHT lower lobe bandlike areas of atelectasis/consolidation. 4. No adenopathy on this unenhanced exam. 5. Hepatic cysts.
== END 2024-12-22 23:59 | disposition home or self-care (01) ==
PROVIDERS: PCP Family Medicine; Visit Provider Internal Medicine Medical Oncology
DX: E83.119 Hemochromatosis, unspecified (principal); Z87.891 Personal history of nicotine dependence; R93.89 Abnormal findings on diagnostic imaging of other specified body structures; J98.11 Atelectasis; R59.0 Localized enlarged lymph nodes; K76.89 Other specified diseases of liver; I70.0 Atherosclerosis of aorta; M47.894 Other spondylosis, thoracic region; M51.24 Other intervertebral disc displacement, thoracic region
CPT/HCPCS: 71250

== ENCOUNTER → 2024-12-03 14:34 | Outpatient (BNVA) | payer MEDICARE, SELFPAY | PROVIDERS: PCP Family Medicine; Visit Provider Internal Medicine Cardiovascular Disease | DX: R00.1 Bradycardia, unspecified (principal); I10 Essential (primary) hypertension; Z87.891 Personal history of nicotine dependence | CPT/HCPCS: 99214 ==

== ENCOUNTER → 2024-12-07 12:35 | Outpatient (BNVA) | payer MEDICARE, SELFPAY | PROVIDERS: PCP Family Medicine; Visit Provider Internal Medicine | DX: J86.9 Pyothorax without fistula (principal); Z87.891 Personal history of nicotine dependence; J90 Pleural effusion, not elsewhere classified | CPT/HCPCS: 99213 ==

== ENCOUNTER 2024-12-10 13:05 | Outpatient (RCR) | payer MEDICARE, SELFPAY | END 2024-12-22 23:59 | disposition home or self-care (01) | LOC: SPT 13:05 | PROVIDERS: PCP Family Medicine; Visit Provider Internal Medicine | DX: R53.1 Weakness (principal); R09.02 Hypoxemia | CPT/HCPCS: 97162 ==

== ENCOUNTER 2024-12-14 15:38 | Outpatient (CLI) | payer MEDICARE, SELFPAY ==
--- NOTE | 2024-12-14 15:45 | CT_ITS ---
WS: [id number] CT chest wo con [id number] HISTORY: recurrent pleural effusion TECHNIQUE: Axial imaging performed through the thorax. Coronal and sagittal reformats are submitted. All CT scans at [facility] use at least one of these dose optimization techniques: automated exposure control; mA and/or kV adjustment per patient size (includes targeted exams where dose is matched to clinical indication); or iterative reconstruction. CONTRAST: None DLP: 217.32 mGy.cm COMPARISON: 12/02/2024, 11/17/2024, 11/10/2024, 11/05/2024 Lungs and central airway: Recurrent complex pleural effusion in the inferior RIGHT thorax is reidentified. There is a focal collection centrally containing air within the effusion. The collection measures 4.4 x 3.3 cm. There are few small foci of air. Peripheral wall thickening and a small amount of layering pleural effusion. As compared to the most recent study there has been a slight decrease in the amount of effusion. Thin areas of atelectasis in the lower lung epperson. No pneumonia. Pleura: See above. Heart and pericardium: Normal size heart with no pericardial effusion. Mediastinum and abhi: No mediastinum or hilar adenopathy. Vessels: Mild atherosclerosis aorta. No aneurysm. Normal size pulmonary artery. Chest wall and lower neck: No soft tissue masses. Upper abdomen: Patient has known hepatic cysts. No adrenal mass. Postoperative clips in the RIGHT upper quadrant. Osseous structures: Advanced degenerative changes in the midthoracic spine. Disc bases are narrowed. Endplate irregularities. No acute fracture. CT/CT chest wo con [id number] IMPRESSION: 1. Complex RIGHT pleural effusion with possible empyema is reidentified. Fluid component with air has decreased in size moderately since 12/02/2024. There is still a small complex effusion with adjacent RIGHT lower lobe consolidation. 2. No pneumothorax. 3. No mediastinal or hilar adenopathy. 4. Hepatic cysts.
== END 2024-12-14 15:39 | disposition home or self-care (01) ==
LOC: RAD 15:39
PROVIDERS: PCP Family Medicine; Visit Provider Internal Medicine
DX: J90 Pleural effusion, not elsewhere classified (principal); I70.0 Atherosclerosis of aorta; J98.4 Other disorders of lung
CPT/HCPCS: 71250

== ENCOUNTER → 2024-12-17 10:02 | Outpatient (BNVA) | payer MEDICARE, SELFPAY | PROVIDERS: PCP Family Medicine; Visit Provider Student in an Organized Health Care Education/Training Program | DX: J86.9 Pyothorax without fistula (principal) | CPT/HCPCS: 99205 ==

== ENCOUNTER → 2024-12-24 09:04 | Outpatient (BNVA) | payer MEDICARE, SELFPAY | PROVIDERS: PCP Family Medicine; Visit Provider Internal Medicine | DX: J86.9 Pyothorax without fistula (principal); Z87.891 Personal history of nicotine dependence | CPT/HCPCS: 99212 ==

== ENCOUNTER 2025-01-05 14:30 | Oncology outpatient (recurring) (ONCR) | payer MEDICARE, SELFPAY ==
[2025-01-01 08:21] LABS: Hematocrit 43.4 % (36-47); Hemoglobin 13.90 g/dL (11.27-16.99); Mean Corpuscular HGB Conc 32.0 g/dL (30-55); Mean Corpuscular Hemoglobin 32.4 pg (27-33); Mean Corpuscular Volume 101.2 fl (85-98); Nucleated Red Blood Cells % 0 %; Platelet Count 233 10^3/cmm (157-399); Red Blood Count 4.29 10^6/uL (3.85-5.65); White Blood Count 5.54 10^3/uL (3.29-11.43)
[2025-01-05 15:13] LABS: Ferritin 68 ng/mL (15-150)
--- NOTE | 2025-01-05 16:10 | PC.NURSE ---
Patient's labs were reviewed. Patient's ferritin level today was 68. Per Dr Zhou's perimeters patient should receive a phlebotomy. Patient declined today stating she had recently spent 21 days in the hospital for pneumonia. She felt she still recovering from this and did not feel up to a phlebotomy. She will return to clinic sooner than her scheduled times if she feels bad or feels she would benefit from the phlebotomy.
== END 2025-01-22 23:59 | disposition home or self-care (01) ==
PROVIDERS: PCP Family Medicine; Visit Provider Internal Medicine Medical Oncology
DX: E83.119 Hemochromatosis, unspecified; Z53.9 Procedure and treatment not carried out, unspecified reason
CPT/HCPCS: 36415; 82728; 85025

== ENCOUNTER → 2025-03-01 13:38 | Outpatient (BNVA) | payer MEDICARE, SELFPAY | PROVIDERS: PCP Family Medicine; Visit Provider Internal Medicine | DX: J86.9 Pyothorax without fistula (principal); J90 Pleural effusion, not elsewhere classified; J84.89 Other specified interstitial pulmonary diseases; Z87.891 Personal history of nicotine dependence; J44.9 Chronic obstructive pulmonary disease, unspecified | CPT/HCPCS: 99214; Q3014 ==

== ENCOUNTER 2025-03-04 08:46 | Outpatient (CLI) | payer MEDICARE, SELFPAY ==
--- NOTE | 2025-03-04 08:55 | MM_ITS ---
WS: [id number] BILATERAL SCREENING DIGITAL TOMOSYNTHESIS MAMMOGRAM WITH CAD HISTORY: SCREENING COMPARISON: 02/24/2024, 02/07/2023, 01/30/2022 Bilateral CC and MLO views with tomosynthesis and synthetic mammography submitted. Computer aided detection analyzed. Breast composition: There are scattered areas of fibroglandular density. No suspicious masses, microcalcifications or architectural distortion. Stable asymmetries and calcifications. MM/MM scr BI tomosynthesis [id number] IMPRESSION: BI-RADS: 2 - Benign. FOLLOW UP: 1 Year Follow-up
== END 2025-03-04 08:47 | disposition home or self-care (01) ==
LOC: RAD 08:48
PROVIDERS: PCP Family Medicine; Visit Provider Family Medicine
DX: Z12.31 Encounter for screening mammogram for malignant neoplasm of breast (principal); R92.323 Mammographic fibroglandular density, bilateral breasts; R92.1 Mammographic calcification found on diagnostic imaging of breast; N64.89 Other specified disorders of breast
CPT/HCPCS: 77063; 77067

== ENCOUNTER 2025-03-10 08:11 | Oncology outpatient (recurring) (ONCR) | payer MEDICARE, SELFPAY ==
--- NOTE | 2025-03-10 08:15 | CTR_ITS ---
PROCEDURE INFORMATION: Exam: CT Chest Without Contrast; Diagnostic Exam date and time: 03/10/2025 8:20 AM Age: 84 years old Clinical indication: Condition or disease; Lung condition and disease; Pleural effusion; Other: Not specified; Primary cancer: Colon; Prior surgery; Surgery date: 6+ months; Surgery type: Breast reduction; Additional info: Empyema and loculated pleural effusion TECHNIQUE: Imaging protocol: Diagnostic computed tomography of the chest without contrast. Radiation optimization: All CT scans at this facility use at least one of these dose optimization techniques: automated exposure control; mA and/or kV adjustment per patient size (includes targeted exams where dose is matched to clinical indication); or iterative reconstruction. COMPARISON: CT chest wo con [id number] 12/14/2024 3:46 PM RADIATION DOSE METRICS: Total DLP (mGy-cm): 218.82 FINDINGS: Lungs: Subtotal resolution of linear and patchy right lower lobe atelectasis compared to prior. Scattered curvilinear densities in the left upper lobe are unchanged and more likely indicative of scar. Pleural spaces: Subtotal resolution right pleural effusion compared to prior. Heart: Unremarkable. No cardiomegaly. No pericardial effusion. Coronary arteries: There is moderate atherosclerotic calcification of the coronary arteries. Lymph nodes: Unremarkable. No enlarged lymph nodes. Vasculature: Unremarkable. No aortic aneurysm. Liver: Redemonstration of a proximally 5 and 1 cm cysts in the superior right and left lobes of the liver. Bones/joints: Unremarkable. No acute fracture. Soft tissues: Unremarkable. CT/CT chest wo con [id number] IMPRESSION: 1. Subtotal resolution of right pleural effusion and right lower lobe atelectasis since the last exam. 2. Fine curvilinear densities in the left upper lobe and right lower lobe may represent scar.
== END 2025-03-24 23:59 | disposition home or self-care (01) ==
LOC: RAD 08:11 → ONCMED 11:23
PROVIDERS: PCP Family Medicine; Visit Provider Internal Medicine Medical Oncology
DX: E83.119 Hemochromatosis, unspecified (principal); Z53.9 Procedure and treatment not carried out, unspecified reason; Z87.891 Personal history of nicotine dependence; R93.89 Abnormal findings on diagnostic imaging of other specified body structures; J98.11 Atelectasis; R59.0 Localized enlarged lymph nodes; K76.89 Other specified diseases of liver; I70.0 Atherosclerosis of aorta; M47.894 Other spondylosis, thoracic region; M51.24 Other intervertebral disc displacement, thoracic region; J90 Pleural effusion, not elsewhere classified; J92.9 Pleural plaque without asbestos; R91.8 Other nonspecific abnormal finding of lung field; M51.34 Other intervertebral disc degeneration, thoracic region; J44.9 Chronic obstructive pulmonary disease, unspecified
CPT/HCPCS: 71250